=== PATIENT | male | born 1955 | race Caucasian/White ===

== ENCOUNTER 2022-04-30 11:12 | Inpatient (IN) | payer MEDICARE, BC ==
[2022-04-30 11:36] LABS: Glucose,Whole Blood 186 mg/dL (70-110)
--- NOTE | 2022-04-30 11:50 | ED ---
General Adult HPI - General Chief complaint: Shortness of Breath Stated complaint: diabetic issue Time Seen by Provider: 04/30/22 11:31 Source: patient Mode of arrival: ambulatory Limitations: no limitations - History of Present Illness Initial comments: Dictation was produced using [employer] dictation software. please excuse any grammatical, word or spelling errors. Chief Complaint: 67-year-old male past medical history of liver transplant presents to the emergency department for lethargy, dehydration and generalized weakness History of Present Illness: This 67-year-old male he presents with his brother and . Patient last week has been having generalized weakness, lethargy and confusion. Patient has a history of liver transplant that was done several years ago at [facility]. Patient moved here recently a month ago from [place]. Patient denies any complaints at this time. was concerned about patient's well-being decided that patient should come to the emergency department. Patient had outpatient labs ordered by physician in [place] that he has not gotten yet. Patient takes multiple immunosuppressive medications. The ROS documented in this emergency department record has been reviewed and confirmed by me. Those systems with pertinent positive or negative responses have been documented in the HPI. All other systems are other negative and/or noncontributory. PHYSICAL EXAM: General Impression: Alert and oriented x3, not in acute distress HEENT: Normocephalic atraumatic, extra-ocular movements intact, pupils equal and reactive to light bilaterally, mucous membranes moist. Cardiovascular: Heart regular rate and rhythm Chest: Able to complete full sentences, no retractions, no tachypnea Abdomen: abdomen soft, non-tender, non-distended, no organomegaly Musculoskeletal: Pulses present and equal in all extremities, no peripheral edema Motor: no focal deficits noted Neurological: CN II-XII grossly intact, no focal motor or sensory deficits noted Skin: Intact with no visualized rashes Psych: Normal affect and mood ED course: 67-year-old male with multiple comorbidities, liver transplant and on transplant medication presents emergency department for lethargy, weakness and dehydration. Vital signs upon arrival shows temperature 100.6, 90% on room air, rest of vital signs within acceptable limits. Patient has history of lung lobectomy and liver transplant. Physical examination is benign. Patient does not appear to be in any acute distress. Family reports the patient has been confused recently. Laboratory evaluation obtained. CBC unremarkable. Coag panel is unremarkable. Metabolic panel shows elevated renal markers with a creatinine of 2.1 BUN of 49. has [facility] patient's my chart from [place] which shows that in December he had a creatinine of 2.0 and few months prior to that grade 1.6. He does have a history of chronic kidney disease. No lactic acidosis. 4 panel viral PCR is unremarkable for influenza, RSV or COVID-19. Computed tomography scan of the brain shows no acute processes. Chest x-ray shows right upper lung pneumonia. Patient reevaluated at the bedside. Patient was recommended to be admitted to the hospital to be started on antibiotics. He was initially reluctant at first however family convinced him. Patient upon reevaluation at 2:30 PM showed stable medical condition. Is not showing any significant signs of respiratory distress. He is satting well with 2 L nasal cannula. Patient be admitted to [facility]. Patient started on Zosyn. EKG interpretation: Ventricular rate 93, sinus rhythm, AL interval 109, care is 162, QTc 435. No AL prolongation, no QTC prolongation, no ST or T-wave changes noted. No old EKG for comparison. Right bundle branch block. Overall this EKG is nonspecific. - Related Data Home Medications Medication Instructions Recorded Confirmed Docusate [Colace] 100 mg PO BID PRN 04/30/22 04/30/22 Ergocalciferol (Vitamin D2) 1,250 mcg PO SA 04/30/22 04/30/22 [Drisdol (50,000 Iu)] Fenofibrate Nanocrystallized 145 mg PO DAILY 04/30/22 04/30/22 [Fenofibrate] Fluticasone Nasal [place] [Flonase 2 spray EA NOSTRIL DAILY PRN 04/30/22 04/30/22 Nasal [place]] Insulin Glargine,Hum.rec.anlog 34 units SQ DAILY 04/30/22 04/30/22 [Lantus Solostar Pen] Levothyroxine Sodium 112 mcg PO HS 04/30/22 04/30/22 Loratadine [Claritin] 10 mg PO DAILY 04/30/22 04/30/22 Losartan [Cozaar] 50 mg PO DAILY 04/30/22 04/30/22 Rosuvastatin Calcium [Crestor] 5 mg PO DAILY 04/30/22 04/30/22 Semaglutide [Rybelsus] 7 mg PO DAILY 04/30/22 04/30/22 Sirolimus 1 mg PO DAILY 04/30/22 04/30/22 [place] Superfood Supplement 1 tab PO DAILY 04/30/22 04/30/22 Whole Fruit Supplement 3 tab PO DAILY 04/30/22 04/30/22 amLODIPine [Norvasc] 5 mg PO DAILY 04/30/22 04/30/22 carvediloL 25 mg PO BID-W/MEALS 04/30/22 04/30/22 traZODone HCL [Desyrel] 100 mg PO HS PRN 04/30/22 04/30/22 Allergies Allergy/AdvReac Type Severity Reaction Status Date / Time No Known Allergies Allergy Verified 04/30/22 13:45 Review of Systems ROS Statement: Those systems with pertinent positive or pertinent negative responses have been documented in the HPI. ROS Other: All systems not noted in ROS Statement are negative. Past Medical History Past Medical History: Diabetes Mellitus, Hyperlipidemia, Hypertension, Liver Disease, Thyroid Disorder Additional Past Medical History / Comment(s): liver transplant 2004 History of Any Multi-Drug Resistant Organisms: None Reported Additional Past Surgical History / Comment(s): liver transplant, spinal fusion Past Psychological History: No Psychological Hx Reported Smoking Status: Former smoker Past Alcohol Use History: Occasional Past Drug Use History: None Reported General Exam Limitations: no limitations Course Vital Signs 04/30/22 04/30/22 04/30/22 11:21 11:45 12:58 Temperature 100.6 F H 99.6 F Pulse Rate 98 92 86 Respiratory 20 24 18 Rate Blood Pressure 129/81 103/88 98/71 O2 Sat by Pulse 90 L 96 97 Oximetry Medical Decision Making - Lab Data Result diagrams: 04/30/22 11:48 04/30/22 11:48 Lab Results 04/30/22 04/30/22 04/30/22 Range/Units 11:35 11:48 11:48 WBC 10.6 (3.8-10.6) k/uL RBC 4.38 (4.30-5.90) m/uL Hgb 13.0 (13.0-17.5) gm/dL Hct 38.7 L (39.0-53.0) % MCV 88.3 (80.0-100.0) fL MCH 29.6 (25.0-35.0) pg MCHC 33.5 (31.0-37.0) g/dL RDW 14.7 (11.5-15.5) % Plt Count 262 (150-450) k/uL MPV 9.2 Neutrophils % 82 % Lymphocytes % 11 % Monocytes % 4 % Eosinophils % 1 % Basophils % 1 % Neutrophils # 8.7 H (1.3-7.7) k/uL Lymphocytes # 1.1 (1.0-4.8) k/uL Monocytes # 0.4 (0-1.0) k/uL Eosinophils # 0.1 (0-0.7) k/uL Basophils # 0.1 (0-0.2) k/uL PT 10.7 (9.0-12.0) sec INR 1.0 (<1.2) APTT 24.8 (22.0-30.0) sec Sodium (137-145) mmol/L Potassium (3.5-5.1) mmol/L Chloride (98-107) mmol/L Carbon Dioxide (22-30) mmol/L Anion Gap mmol/L BUN (9-20) mg/dL Creatinine (0.66-1.25) mg/dL Est GFR (CKD-EPI)AfAm (>60 ml/min/1.73 sqM) Est GFR (CKD-EPI)NonAf (>60 ml/min/1.73 sqM) Glucose (74-99) mg/dL POC Glucose (mg/dL) 186 H (70-110) mg/dL POC Glu Program Checker ID Doty Manuel Plasma Lactic Acid Last (0.7-2.0) mmol/L Calcium (8.4-10.2) mg/dL Magnesium (1.6-2.3) mg/dL Total Bilirubin (0.2-1.3) mg/dL AST (17-59) U/L ALT (4-49) U/L Alkaline Phosphatase (38-126) U/L Total Protein (6.3-8.2) g/dL Albumin (3.5-5.0) g/dL Influenza Type A (PCR) (Not Detectd) Influenza Type B (PCR) (Not Detectd) RSV (PCR) (Not Detectd) SARS-CoV-2 (PCR) (Not Detectd) 04/30/22 04/30/22 04/30/22 Range/Units 11:48 11:48 11:51 WBC (3.8-10.6) k/uL RBC (4.30-5.90) m/uL Hgb (13.0-17.5) gm/dL Hct (39.0-53.0) % MCV (80.0-100.0) fL MCH (25.0-35.0) pg MCHC (31.0-37.0) g/dL RDW (11.5-15.5) % Plt Count (150-450) k/uL MPV Neutrophils % % Lymphocytes % % Monocytes % % Eosinophils % % Basophils % % Neutrophils # (1.3-7.7) k/uL Lymphocytes # (1.0-4.8) k/uL Monocytes # (0-1.0) k/uL Eosinophils # (0-0.7) k/uL Basophils # (0-0.2) k/uL PT (9.0-12.0) sec INR (<1.2) APTT (22.0-30.0) sec Sodium 135 L (137-145) mmol/L Potassium 4.4 (3.5-5.1) mmol/L Chloride 95 L (98-107) mmol/L Carbon Dioxide 26 (22-30) mmol/L Anion Gap 14 mmol/L BUN 49 H (9-20) mg/dL Creatinine 2.21 H (0.66-1.25) mg/dL Est GFR (CKD-EPI)AfAm 35 (>60 ml/min/1.73 sqM) Est GFR (CKD-EPI)NonAf 30 (>60 ml/min/1.73 sqM) Glucose 182 H (74-99) mg/dL POC Glucose (mg/dL) (70-110) mg/dL POC Glu Program Checker ID Plasma Lactic Acid Last 1.4 (0.7-2.0) mmol/L Calcium 8.8 (8.4-10.2) mg/dL Magnesium 2.2 (1.6-2.3) mg/dL Total Bilirubin 0.7 (0.2-1.3) mg/dL AST 214 H (17-59) U/L ALT 99 H (4-49) U/L Alkaline Phosphatase 100 (38-126) U/L Total Protein 6.6 (6.3-8.2) g/dL Albumin 3.8 (3.5-5.0) g/dL Influenza Type A (PCR) Not Detected (Not Detectd) Influenza Type B (PCR) Not Detected (Not Detectd) RSV (PCR) Not Detected (Not Detectd) SARS-CoV-2 (PCR) Not Detected (Not Detectd) Disposition Clinical Impression: Pneumonia Disposition: ADMITTED IP TO THIS [facility] Condition: Serious Referrals: Nonstaff,Physician [Primary Care Provider] - 1-2 days Decision Time: 14:25
[2022-04-30 12:01] LABS: Basophils # (A) 0.1 k/uL (0-0.2); Basophils % (A) 1 %; Eosinophils # (A) 0.1 k/uL (0-0.7); Eosinophils % (A) 1 %; HCT 38.7 % (39.0-53.0); Lymphocytes # (A) 1.1 k/uL (1.0-4.8); Lymphocytes % (A) 11 %; MCH 29.6 pg (25.0-35.0); MCHC 33.5 g/dL (31.0-37.0); MCV 88.3 fL (80.0-100.0); Mean Platelet Volume 9.2; Monocytes # (A) 0.4 k/uL (0-1.0); Monocytes % (A) 4 %; Neutrophils # (A) 8.7 k/uL (1.3-7.7); Neutrophils % (A) 82 %; Platelet Count 262 k/uL (150-450); RBC 4.38 m/uL (4.30-5.90); RDW 14.7 % (11.5-15.5); WBC 10.6 k/uL (3.8-10.6)
[2022-04-30 12:13] LABS: Albumin 3.8 g/dL (3.5-5.0); Calcium 8.8 mg/dL (8.4-10.2); Magnesium 2.2 mg/dL (1.6-2.3); Potassium 4.4 mmol/L (3.5-5.1); Total Bilirubin 0.7 mg/dL (0.2-1.3); Total Protein 6.6 g/dL (6.3-8.2)
[2022-04-30 12:22] LABS: Partial Thromboplastin Time 24.8 sec (22.0-30.0); Prothrombin Time 10.7 sec (9.0-12.0)
--- NOTE | 2022-04-30 12:41 | CT ---
EXAMINATION TYPE: CT brain wo con CT DLP: 1154.4 mGycm, Automated exposure control for dose reduction was used. DATE OF EXAM: 04/30/2022 12:19 PM COMPARISON: None. CLINICAL INDICATION:Male, 67 years old with history of lethargy, TECHNIQUE: Brain: Multiple axial CT images of the brain were obtained without IV contrast. Coronal and sagittal reformats reviewed. FINDINGS: Brain: Extra-axial spaces: No abnormal extra-axial fluid collections. Ventricular system: Within normal limits Cerebral parenchyma: No acute intraparenchymal hemorrhage or mass effect. The morales-white junction is well differentiated. Scattered hypoattenuating areas are seen within the white matter. Cerebellum: Unremarkable. Mass effect: No evidence of midline shift. Intracranial vasculature: Atherosclerotic calcifications of the intracranial vessels. Soft tissues: Normal. Calvarium/osseous structures: No depressed skull fracture. Paranasal sinuses and mastoid air cells: Mastoid air cells are clear. Mild mucosal thickening of the right maxillary sinus and right sphenoid sinus. Visualized orbits: Orbital contents are intact. IMPRESSION: 1. No acute intracranial process. 2. Nonspecific white matter changes, likely secondary to chronic small vessel ischemic disease.
--- NOTE | 2022-04-30 12:44 | XR ---
EXAMINATION TYPE: XR chest 2V DATE OF EXAM: 04/30/2022 12:19 PM COMPARISON: None TECHNIQUE: XR chest 2V Frontal and lateral views of the chest. CLINICAL INDICATION:Male, 67 years old with history of fever; FINDINGS: Lungs/Pleura: Blunting of both costophrenic angles. Patchy airspace disease demonstrated along the la teral aspect of the right upper lung. Pulmonary vascularity: Unremarkable. Heart/mediastinum: Heart is mildly prominent size and partially obscured. Surgical clips along the ri ght paratracheal stripe. Musculoskeletal: No acute osseous pathology. Other: Surgical clips in the upper abdomen. IMPRESSION: Trace bilateral pleural effusions with patchy airspace opacities within the right upper lung concerni ng for pneumonia.
[2022-04-30] MEDS ORDERED: PIPERACILLIN-TAZOBACTAM 3.375 GM in SODIUM CHLORIDE 0.9% 100 ML IVPB STA (13:50)
[2022-04-30] MEDS ORDERED: ONDANSETRON 4 MG/2 ML VIAL IVP PRN (14:21)
[2022-04-30] MEDS ORDERED: NALOXONE 0.4 MG/ML 1 ML VIAL IV PRN (14:21)
[2022-04-30] MEDS: SODIUM CHLORIDE 0.9% 1,000 ML IV SCH (14:42)
[2022-04-30] MEDS ORDERED: bisacodyL 5 MG TABLET.DR PO PRN (15:40)
[2022-04-30] MEDS ORDERED: DEXTROSE 50% SYRINGE 50 ML IVP PRN ×2 (15:43)
[2022-04-30] MEDS ORDERED: FLUTICASONE 50MCG/SPRAY NASAL 16GM EA NOSTRIL PRN (15:56)
[2022-04-30 16:36] LABS: Glucose,Whole Blood 180 mg/dL (70-110)
--- NOTE | 2022-04-30 16:58 | P.HPIM ---
History of Present Illness H&P Date: 04/30/22 Chief Complaint: SOB Patient is a 67-year-old male with past medical history of hep C, hepatocellular carcinoma status post liver transplant [2005], diabetes, hypertension, dyslipidemia presenting with shortness of breath, and cough for 1 week. Patient recently moved from [place] to [place]. Previously he was seeing PCP in [place], and also following liver transplant center at [facility]. He is still in the process of establishing with a primary care doctor in [place]. Patient claims that about 1 week ago, he started to notice shortness of breath and cough. He denied any sputum production. His claims that he was also having significant chills at home. He denies any fevers. He denies any chest pain, abdominal pain, nausea, vomiting, diarrhea, or constipation. He did have reduced appetite. He denies any recent sick contacts or travel history. His and him were also concerned about his blood sugar levels. He claimed that he was hyperglycemic up to 180s. No hypoglycemic evens. In the ED, patient was febrile up to 100.6, blood pressure 129/81, 90% on room air, 98 heart rate, respiratory rate of 20. His labs were significant for elevated BUN and creatinine. Respiratory viral panel was negative. EKG was read as sinus rhythm with right bundle branch block. Chest x-ray demonstrated right upper lobe pneumonia with trace bilateral effusions. CT had was negative for any acute process. Pertinent positives and negatives as discussed in HPI, a complete review of systems was performed and all other systems are negative. Patient seen and examined at bedside. Vital signs reviewed General: nontoxic, no distress, appears at stated age Derm: warm, dry Head: atraumatic, normocephalic, symmetric Eyes: EOMI, no lid lag, anicteric sclera, pupils equal round reactive to light ENT: Nose and ears atraumatic, no thrush, no pharyngeal erythema Neck: No thyromegaly, no cervical lymphadenopathy, trachea midline, supple Mouth: no lip lesion, mucus membranes moist Cardiovascular: S1S2 reg, no murmur, no edema, capillary refill less than 2 seconds Lungs: Right upper lobe crackles, no wheeze, no accessory muscle use, on 2 L nasal cannula Abdominal: soft, nontender to palpation, no guarding, no appreciable organomegaly Ext: no gross muscle atrophy, muscle strength muscle strength 5 out of 5 in all 4 extremities, no contractures Neuro: CN II-XII grossly intact, light touch intact all 4 extremities Psych: Alert, oriented, appropriate affect Assessment/Plan: Acute hypoxic respiratory failure Sepsis secondary to community-acquired pneumonia Immunosuppressed -Given a dose of Zosyn in the ED -will start patient on levofloxacin IV daily -If symptoms not improving, or worsening consider broadening antibiotics -Sputum cultures, blood cultures pending -Continue to wean down oxygen Acute kidney injury, on possible chronic kidney disease -Unsure baseline creatinine -Possibly prerenal in the setting of acute infection -Could also be related to medication use especially sirolimus -Sirolimus levels pending -UA pending -Denies any urinary complaints -Renal ultrasound -Monitor urine output, trend renal function -Continue IV fluids are now -Hold losartan Hep C Hepatocellular carcinoma status post liver transplant -On sirolimus, continue Diabetes, insulin-dependent -Reduced home Lantus to 17 units given decreased oral intake -Sliding scale insulin -Holding home oral hypoglycemic medications Chronic conditions: Hypothyroidismlevothyroxine Hypertension-holding BP meds given acute infection Dyslipidemiarosuvastatin The patient is admitted as an inpatient with an anticipated greater than 2 midnight stay for evaluation and management of community-acquired pneumonia in the setting of immunosuppression, liver transplant. CODE STATUS: Full code DVT prophylaxis: Subcu heparin Anticipated discharge date: 05/02/[address]: Home A total of 45 minutes was spent on the care of this complex patient more than 50% of the time was spent in counseling and care coordination. Past Medical History Past Medical History: Diabetes Mellitus, Hyperlipidemia, Hypertension, Liver Disease, Thyroid Disorder Additional Past Medical History / Comment(s): liver transplant 2004 History of Any Multi-Drug Resistant Organisms: None Reported Additional Past Surgical History / Comment(s): liver transplant, spinal fusion Past Psychological History: No Psychological Hx Reported Smoking Status: Former smoker Past Alcohol Use History: Occasional Past Drug Use History: None Reported Medications and Allergies Home Medications Medication Instructions Recorded Confirmed Type Docusate [Colace] 100 mg PO BID PRN 04/30/22 04/30/22 History Ergocalciferol (Vitamin D2) 1,250 mcg PO SA 04/30/22 04/30/22 History [Drisdol (50,000 Iu)] Fenofibrate Nanocrystallized 145 mg PO DAILY 04/30/22 04/30/22 History [Fenofibrate] Fluticasone Nasal [place] [Flonase 2 spray EA NOSTRIL DAILY PRN 04/30/22 04/30/22 History Nasal [place]] Insulin Glargine,Hum.rec.anlog 34 units SQ DAILY 04/30/22 04/30/22 History [Lantus Solostar Pen] Levothyroxine Sodium 112 mcg PO HS 04/30/22 04/30/22 History Loratadine [Claritin] 10 mg PO DAILY 04/30/22 04/30/22 History Losartan [Cozaar] 50 mg PO DAILY 04/30/22 04/30/22 History Rosuvastatin Calcium [Crestor] 5 mg PO DAILY 04/30/22 04/30/22 History Semaglutide [Rybelsus] 7 mg PO DAILY 04/30/22 04/30/22 History Sirolimus 1 mg PO DAILY 04/30/22 04/30/22 History [place] Superfood Supplement 1 tab PO DAILY 04/30/22 04/30/22 History Whole Fruit Supplement 3 tab PO DAILY 04/30/22 04/30/22 History amLODIPine [Norvasc] 5 mg PO DAILY 04/30/22 04/30/22 History carvediloL 25 mg PO BID-W/MEALS 04/30/22 04/30/22 History traZODone HCL [Desyrel] 100 mg PO HS PRN 04/30/22 04/30/22 History Allergies Allergy/AdvReac Type Severity Reaction Status Date / Time No Known Allergies Allergy Verified 04/30/22 13:45 Physical Exam Vitals: Vital Signs Temp Pulse Pulse Resp BP BP Pulse Ox 04/30/22 16:03 98.2 F 84 20 98/66 93 L 04/30/22 15:52 99.7 F H 80 18 106/64 97 04/30/22 14:48 84 18 109/87 98 04/30/22 12:58 99.6 F 86 18 98/71 97 04/30/22 11:45 92 24 103/88 96 04/30/22 11:21 100.6 F H 98 20 129/81 90 L Intake and Output 04/30/22 04/30/22 04/30/22 06:59 14:59 22:59 Other: Weight 92.986 kg Results CBC & Chem 7: 04/30/22 11:48 04/30/22 11:48 Labs: Abnormal Lab Results - Last 24 Hours (Table) 04/30/22 04/30/22 04/30/22 Range/Units 11:35 11:48 11:48 Hct 38.7 L (39.0-53.0) % Neutrophils # 8.7 H (1.3-7.7) k/uL Sodium 135 L (137-145) mmol/L Chloride 95 L (98-107) mmol/L BUN 49 H (9-20) mg/dL Creatinine 2.21 H (0.66-1.25) mg/dL Glucose 182 H (74-99) mg/dL POC Glucose (mg/dL) 186 H (70-110) mg/dL AST 214 H (17-59) U/L ALT 99 H (4-49) U/L 04/30/22 Range/Units 16:35 Hct (39.0-53.0) % Neutrophils # (1.3-7.7) k/uL Sodium (137-145) mmol/L Chloride (98-107) mmol/L BUN (9-20) mg/dL Creatinine (0.66-1.25) mg/dL Glucose (74-99) mg/dL POC Glucose (mg/dL) 180 H (70-110) mg/dL AST (17-59) U/L ALT (4-49) U/L
[2022-04-30] MEDS: INSULIN ASPART (NovoLOG) 100 UNIT/ML VIAL SQ SCH (18:34)
[2022-04-30] MEDS: LEVOFLOXACIN 750MG-D5W PMX 750 MG in DEXTROSE/WATER 1 150ML.BAG IVPB SCH (18:34)
[2022-04-30 18:50] LABS: Appearance,Urine Cloudy (Clear); Bilirubin,Urine Negative (Negative); Blood,Urine Small (Negative); Color,Urine Yellow; Glucose,Urine (UA) Trace (Negative); Hyaline Casts,Urine 3 /lpf (0-2); Ketones,Urine Negative (Negative); Leukocyte Esterase,Urine Negative (Negative); Nitrite,Urine Negative (Negative); Protein,Urine 1+ (Negative); RBC,Urine 3 /hpf (0-5); Specific Gravity,Urine 1.017 (1.001-1.035); Urobilinogen,Urine <2.0 mg/dL (<2.0); WBC,Urine 3 /hpf (0-5)
[2022-04-30] MEDS: LEVOTHYROXINE 112 MCG TAB PO SCH (20:03)
[2022-04-30] MEDS: HEPARIN SODIUM,PORCINE/PF 5,000 UNIT/0.5 ML SYRINGE SQ SCH (20:03)
[2022-04-30 21:04] LABS: Glucose,Whole Blood 274 mg/dL (70-110)
[2022-05-01] MEDS: SODIUM CHLORIDE 0.9% 1,000 ML IV SCH ×2 (05:57→19:49)
[2022-05-01 07:16] LABS: Glucose,Whole Blood 116 mg/dL (70-110)
[2022-05-01] MEDS ORDERED: LOSARTAN 50 MG TAB PO SCH (09:00)
[2022-05-01 09:09] LABS: Basophils # (A) 0.01 X 10*3/uL (0.00-0.10); Basophils % (A) 0.1 %; Eosinophils # (A) 0.01 X 10*3/uL (0.04-0.35); Eosinophils % (A) 0.1 %; HCT 33.7 % (39.6-50.0); HGB 10.6 g/dL (13.0-17.0); Immature Grans, Automated 0.6 %; Lymphocytes # (A) 1.23 X 10*3/uL (0.90-5.00); Lymphocytes % (A) 15.4 %; MCH 27.9 pg (27.0-32.0); MCHC 31.5 g/dL (32.0-37.0); MCV 88.7 fL (80.0-97.0); Mean Platelet Volume 11.8 fL (9.5-12.2); Monocytes # (A) 0.72 X 10*3/uL (0.20-1.00); NRBC Per 100 WBC 0 /100 WBCS (0.0-0.0); Neutrophils # (A) 5.99 X 10*3/uL (1.80-7.70); Neutrophils % (A) 74.8 %; Platelet Count 224 X 10*3/uL (140-440); RDW 14.8 % (11.5-14.5); WBC 8.01 X 10*3/uL (4.50-10.00)
[2022-05-01] MEDS: INSULIN DETEMIR (LEVEMIR) 100 UNIT/ML SYR SQ SCH (09:17)
[2022-05-01] MEDS: HEPARIN SODIUM,PORCINE/PF 5,000 UNIT/0.5 ML SYRINGE SQ SCH ×3 (09:17→23:00)
[2022-05-01] MEDS: INSULIN ASPART (NovoLOG) 100 UNIT/ML VIAL SQ SCH ×3 (09:20→19:48)
--- NOTE | 2022-05-01 09:28 | US ---
EXAMINATION TYPE: US kidneys/renal and bladder DATE OF EXAM: 05/01/2022 COMPARISON: NONE CLINICAL HISTORY: ANNIE. EXAM MEASUREMENTS: Right Kidney: 11.0 x 5.4 x 5.0 cm Left Kidney: 9.4 x 4.5 x 4.7 cm Technically difficult study, patient unable to hold his breath, large body habitus. Right Kidney: lobular contour, limited visualization Left Kidney: very limited visualization superior pole obscured by overlying bowel Bladder: wall is thickened, this may be due to non-distention Incidental finding of splenomegaly. Some cortical thinning in the right kidney. No hydronephrosis or concerning masses. The urinary blad micki is not greatly distended and is thus suboptimally evaluated. Wall is minimally thickened for non distended bladder. Bilateral ureteral jets are not seen. Spleen is enlarged in size difficult to accu rately measure. Poor visualization of left kidney without gross hydronephrosis. IMPRESSION: Suboptimal study without hydronephrosis seen bilaterally. Splenomegaly is noted which may warrant further clinical workup.
[2022-05-01 09:35] LABS: African American GFR (CKD) 34.9 (60.0-200.0); Albumin 3.2 g/dL (3.8-4.9); Albumin/Globulin Ratio 1.52 (1.60-3.17); Anion Gap 9.9 mmol/L (10.00-18.00); BUN/Creat Ratio 22.5 Ratio (12.00-20.00); Blood Urea Nitrogen 49.5 mg/dL (9.0-27.0); Calcium 8.5 mg/dL (8.7-10.3); Carbon Dioxide 25.1 mmol/L (20.0-27.5); Globulin 2.1 g/dL (1.6-3.3); Magnesium 2.4 mg/dL (1.5-2.4); Non-African American GFR(CKD) 30.1 (60.0-200.0); Potassium 4.1 mmol/L (3.5-5.5); Total Bilirubin 0.3 mg/dL (0.30-1.20); Total Protein 5.3 g/dL (6.2-8.2)
--- NOTE | 2022-05-01 10:32 | P.PN ---
Subjective Progress Note Date: 05/01/22 Hospital course: Patient is a Physical exam: Vital signs reviewed and stable. General: Nontoxic, no distress and appears stated age. Derm: Skin warm and dry, normal coloration for ethnicity. Head: Atraumatic, normocephalic and symmetric. Eyes: EOMs intact, no lid lag, and anicteric sclera Mouth: no lip lesions, mucus membranes moist Cardiovascular: regular rate and rhythm with normal S1S2, no murmur, positive posterior tibial pulses bilaterally, and cap refill < 2 seconds. Lungs: Respirations even, regular, and unlabored on room air. Lungs CTA bilaterally, no rhonchi, no rales, no wheezing, and no accessory muscle usage. Abdominal: soft, nontender to palpation, no guarding, no appreciable organomegaly Ext: ROM intact. No gross muscle atrophy, no edema, no contractures Neuro: Speech clear, face symmetrical and CN II-XII grossly intact with no noted focal neuro deficits Psych: Alert and oriented to person, place, time, and situation. Appropriate and pleasant affect. Assessment and Plan of Care: CODE STATUS:[] DVT prophylaxis: [] Discussed with: [] Anticipated discharge date: [] Anticipated discharge place: [] A total of [] minutes was spent on the care of this complex patient more than 50% of the time was spent in counseling and care coordination. Objective - Vital Signs Vital signs: Vital Signs Temp 98.4 F 05/01/22 07:18 Pulse 90 05/01/22 08:00 Resp 18 05/01/22 08:00 BP 138/77 05/01/22 07:18 Pulse Ox 96 05/01/22 06:00 FiO2 Intake & Output 04/30/22 05/01/22 05/01/22 18:59 06:59 18:59 Output Total 470 325 Balance -470 -325 Weight 92.986 kg Output: Urine 470 325 Other: Voiding Method Toilet Toilet # Voids 1 # Bowel Movements 2 1 - Labs CBC & Chem 7: 05/01/22 06:15 05/01/22 06:15 Labs: Abnormal Lab Results - Last 24 Hours (Table) 04/30/22 04/30/22 04/30/22 Range/Units 11:35 11:48 11:48 RBC (4.40-5.60) X 10*6/uL Hgb (13.0-17.0) g/dL Hct 38.7 L (39.0-53.0) % MCHC (32.0-37.0) g/dL RDW (11.5-14.5) % Immature Gran # (0.00-0.04) X 10*3/uL Neutrophils # 8.7 H (1.3-7.7) k/uL Eosinophils # (0.04-0.35) X 10*3/uL Sodium 135 L (137-145) mmol/L Chloride 95 L (98-107) mmol/L Anion Gap (10.00-18.00) mmol/L BUN 49 H (9-20) mg/dL Creatinine 2.21 H (0.66-1.25) mg/dL Est GFR (CKD-EPI)AfAm (60.0-200.0) Est GFR (CKD-EPI)NonAf (60.0-200.0) BUN/Creatinine Ratio (12.00-20.00) Ratio Glucose 182 H (74-99) mg/dL POC Glucose (mg/dL) 186 H (70-110) mg/dL Hemoglobin A1c (0.0-6.0) % Calcium (8.7-10.3) mg/dL AST 214 H (17-59) U/L ALT 99 H (4-49) U/L Total Protein (6.2-8.2) g/dL Albumin (3.8-4.9) g/dL Albumin/Globulin Ratio (1.60-3.17) g/dL Urine Protein (Negative) Urine Glucose (UA) (Negative) Urine Blood (Negative) Hyaline Casts (0-2) /lpf 04/30/22 04/30/22 04/30/22 Range/Units 16:35 18:07 21:02 RBC (4.40-5.60) X 10*6/uL Hgb (13.0-17.0) g/dL Hct (39.0-53.0) % MCHC (32.0-37.0) g/dL RDW (11.5-14.5) % Immature Gran # (0.00-0.04) X 10*3/uL Neutrophils # (1.3-7.7) k/uL Eosinophils # (0.04-0.35) X 10*3/uL Sodium (137-145) mmol/L Chloride (98-107) mmol/L Anion Gap (10.00-18.00) mmol/L BUN (9-20) mg/dL Creatinine (0.66-1.25) mg/dL Est GFR (CKD-EPI)AfAm (60.0-200.0) Est GFR (CKD-EPI)NonAf (60.0-200.0) BUN/Creatinine Ratio (12.00-20.00) Ratio Glucose (74-99) mg/dL POC Glucose (mg/dL) 180 H 274 H (70-110) mg/dL Hemoglobin A1c (0.0-6.0) % Calcium (8.7-10.3) mg/dL AST (17-59) U/L ALT (4-49) U/L Total Protein (6.2-8.2) g/dL Albumin (3.8-4.9) g/dL Albumin/Globulin Ratio (1.60-3.17) g/dL Urine Protein 1+ H (Negative) Urine Glucose (UA) Trace H (Negative) Urine Blood Small H (Negative) Hyaline Casts 3 H (0-2) /lpf 05/01/22 05/01/22 05/01/22 Range/Units 06:15 06:15 06:15 RBC 3.80 L (4.40-5.60) X 10*6/uL Hgb 10.6 L (13.0-17.0) g/dL Hct 33.7 L (39.0-53.0) % MCHC 31.5 L (32.0-37.0) g/dL RDW 14.8 H (11.5-14.5) % Immature Gran # 0.05 H (0.00-0.04) X 10*3/uL Neutrophils # (1.3-7.7) k/uL Eosinophils # 0.01 L (0.04-0.35) X 10*3/uL Sodium (137-145) mmol/L Chloride (98-107) mmol/L Anion Gap 9.90 L (10.00-18.00) mmol/L BUN 49.5 H (9-20) mg/dL Creatinine 2.2 H (0.66-1.25) mg/dL Est GFR (CKD-EPI)AfAm 34.9 L (60.0-200.0) Est GFR (CKD-EPI)NonAf 30.1 L (60.0-200.0) BUN/Creatinine Ratio 22.50 H (12.00-20.00) Ratio Glucose 114 H (74-99) mg/dL POC Glucose (mg/dL) (70-110) mg/dL Hemoglobin A1c 8.4 H (0.0-6.0) % Calcium 8.5 L (8.7-10.3) mg/dL AST 212 H (17-59) U/L ALT 113 H (4-49) U/L Total Protein 5.3 L (6.2-8.2) g/dL Albumin 3.2 L (3.8-4.9) g/dL Albumin/Globulin Ratio 1.52 L (1.60-3.17) g/dL Urine Protein (Negative) Urine Glucose (UA) (Negative) Urine Blood (Negative) Hyaline Casts (0-2) /lpf 05/01/22 Range/Units 07:14 RBC (4.40-5.60) X 10*6/uL Hgb (13.0-17.0) g/dL Hct (39.0-53.0) % MCHC (32.0-37.0) g/dL RDW (11.5-14.5) % Immature Gran # (0.00-0.04) X 10*3/uL Neutrophils # (1.3-7.7) k/uL Eosinophils # (0.04-0.35) X 10*3/uL Sodium (137-145) mmol/L Chloride (98-107) mmol/L Anion Gap (10.00-18.00) mmol/L BUN (9-20) mg/dL Creatinine (0.66-1.25) mg/dL Est GFR (CKD-EPI)AfAm (60.0-200.0) Est GFR (CKD-EPI)NonAf (60.0-200.0) BUN/Creatinine Ratio (12.00-20.00) Ratio Glucose (74-99) mg/dL POC Glucose (mg/dL) 116 H (70-110) mg/dL Hemoglobin A1c (0.0-6.0) % Calcium (8.7-10.3) mg/dL AST (17-59) U/L ALT (4-49) U/L Total Protein (6.2-8.2) g/dL Albumin (3.8-4.9) g/dL Albumin/Globulin Ratio (1.60-3.17) g/dL Urine Protein (Negative) Urine Glucose (UA) (Negative) Urine Blood (Negative) Hyaline Casts (0-2) /lpf
[2022-05-01] MEDS: LORATADINE 10 MG TAB PO SCH (10:42)
[2022-05-01] MEDS: ATORVASTATIN 10 MG TAB PO SCH (10:43)
[2022-05-01] MEDS: NON FORMULARY DRUG (Sirolimus [Sirolimus] 1 MG Tablet) PO SCH ×2 (10:44→19:48)
[2022-05-01] MEDS: ACETAMINOPHEN TAB 325 MG TAB PO PRN (11:46)
[2022-05-01 12:02] LABS: Glucose,Whole Blood 158 mg/dL (70-110)
[2022-05-01 19:11] LABS: Glucose,Whole Blood 149 mg/dL (70-110)
[2022-05-01 20:33] LABS: Glucose,Whole Blood 168 mg/dL (70-110)
[2022-05-01] MEDS: LEVOTHYROXINE 112 MCG TAB PO SCH (21:21)
[2022-05-01] MEDS: traZODone HCL 100 MG TAB PO PRN (21:27)
[2022-05-02] MEDS: ACETAMINOPHEN TAB 325 MG TAB PO PRN (07:15)
[2022-05-02 07:19] LABS: Glucose,Whole Blood 116 mg/dL (70-110)
[2022-05-02] MEDS: SODIUM CHLORIDE 0.9% 1,000 ML IV SCH ×2 (08:40→16:39)
[2022-05-02] MEDS: INSULIN ASPART (NovoLOG) 100 UNIT/ML VIAL SQ SCH ×3 (08:42→18:07)
[2022-05-02] MEDS: LORATADINE 10 MG TAB PO SCH (08:51)
[2022-05-02] MEDS: ATORVASTATIN 10 MG TAB PO SCH (08:51)
[2022-05-02] MEDS: HEPARIN SODIUM,PORCINE/PF 5,000 UNIT/0.5 ML SYRINGE SQ SCH ×3 (08:51→23:15)
[2022-05-02] MEDS: INSULIN DETEMIR (LEVEMIR) 100 UNIT/ML SYR SQ SCH (08:52)
[2022-05-02] MEDS: NON FORMULARY DRUG (Sirolimus [Sirolimus] 1 MG Tablet) PO SCH (10:21)
[2022-05-02 12:33] LABS: Glucose,Whole Blood 219 mg/dL (70-110)
[2022-05-02] MEDS ORDERED: IPRATROPIUM-ALBUTEROL 3 ML NEB INHALATION PRN (15:24)
--- NOTE | 2022-05-02 15:42 | P.PN ---
Subjective Progress Note Date: 05/02/22 Hospital course: Patient is a very pleasant 67-year-old male who just recently moved to [facility] from [facility]. He has a past medical history of hepatitis C, hepatocellular carcinoma status post liver transplant in 2004 hypertension, hyperlipidemia, hypothyroidism, insulin-dependent diabetes mellitus, and stage IV CKD with reported baseline creatinine based on what pulled up from [place] records is 2.02. Patient presented to the emergency department on 04/30/22 with a chief complaint of shortness of breath and cough 1 week. He underwent full evaluation in the emergency department. Chest x-ray completed revealing trace bilateral pleural effusions with patchy airspace opacities within the right upper lung concerning for pneumonia. EKG completed revealing sinus mechanism and 93 beats per minute with right bundle branch block. Ultrasound of kidney/renal and bladder was completed prior to knowing patient's baseline creatinine was 2.02, renal ultrasound revealed splenomegaly. Patient was given a dose of Zosyn in the emergency department and started on IV Levaquin for treatment of his community-acquired pneumonia. He was admitted under our services and consult was placed to nephrology and infectious disease. Physical exam: Patient was seen and fully evaluated at bedside this morning. High Oral temperature over the past 24 hours was 101.3F. patient is due for IV Levaquin this afternoon. He continues to have reported shortness of breath with minimal exertion, fatigue, and cough. He denies having any headache, lightheadedness, dizziness, chest pain, palpitations, nausea, or vomiting. Documented urinary output over the past 24 hours was 750 mL. renal function stable with BUN of 49.5, creatinine 2.2, and GFR of 30.1. Liver enzymes remain elevated with AST of 212 and ALT of 113. Vital signs reviewed and stable. General: Nontoxic, no distress and appears stated age. Derm: Skin warm and dry, normal coloration for ethnicity. Head: Atraumatic, normocephalic and symmetric. Eyes: EOMs intact, no lid lag, and anicteric sclera Mouth: no lip lesions, mucus membranes moist Cardiovascular: regular rate and rhythm with normal S1S2, systolic murmur, positive posterior tibial pulses bilaterally, and cap refill < 2 seconds. Lungs: Respirations even, regular, and unlabored on 2L O2 w/ SPO2 93-94% at rest. Lungs with soft expiratory wheezes, no rhonchi, no rales, no crackles, and no accessory muscle usage. Abdominal: soft, nontender to palpation, no guarding, no appreciable organomegaly Ext: ROM intact. No gross muscle atrophy, no edema, no contractures Neuro: Speech clear, face symmetrical and CN II-XII grossly intact with no noted focal neuro deficits Psych: Alert and oriented to person, place, time, and situation. Appropriate and pleasant affect. Assessment and Plan of Care: Acute hypoxic respiratory failure Sepsis secondary to community-acquired pneumonia Immunosuppressed -Oxygenation to be administered and titrated as needed to maintain SPO2 equal to or greater than 92% -Telemetry monitoring. -Monitor Pulse-oximetry -Duonebs as needed for SOB and/or wheezing -Incentive Spirometry -Antibiotics: Levofloxacin IV every 48 hours secondary to renal dosing. -Sputum culture and blood cultures negative to date. -Infectious disease consulted. At this time patient to continue antirejection medications. Acute kidney injury, on stage IV chronic kidney disease -Baseline creatinine, 2 (based on what pulled up from [place] medical records) -Could also be related to medication use especially sirolimus -Sirolimus level slightly elevated at 12.8. -UA positive for protein and blood negative for infection. -Denies any urinary complaints -Renal ultrasoundnegative for hydronephrosis. -Monitor urine output, trend renal function -Continue IV fluids for now -Hold losartan -Nephrology consulted as patient's denies patient ever being evaluated by a woven label designer in the past. Hepatocellular carcinoma status post liver transplant in 2004 -On sirolimus, continue -Sirolimus level slightly elevated at 12.8. Diabetes, insulin-dependent -Reduced home Lantus to 17 units given decreased oral intake -Sliding scale insulin -Holding home oral hypoglycemic medications CODE STATUS: full code DVT prophylaxis: heparin Discussed with: patient and patient's and RN. Anticipated discharge date: 2-[address]: Home A total of 39 minutes was spent on the care of this complex patient more than 50% of the time was spent in counseling and care coordination. I reviewed the documentation as provided by the LIZ above, who is the original author of this note. I agree with the documented assessment and plan, with the following changes: none Objective - Vital Signs Vital signs: Vital Signs Temp 98.9 F 05/02/22 08:48 Pulse 98 05/02/22 07:35 Resp 18 05/02/22 07:47 BP 151/80 05/02/22 07:35 Pulse Ox 94 L 05/02/22 08:48 FiO2 Intake & Output 05/01/22 05/02/22 05/02/22 18:59 06:59 18:59 Intake Total 500 Output Total 325 425 Balance -325 75 Intake: Oral 500 Output: Urine 325 425 Other: Voiding Method Toilet Toilet Toilet # Voids 1 0 # Bowel Movements 1 - Labs CBC & Chem 7: 05/01/22 06:15 05/01/22 06:15 Labs: Abnormal Lab Results - Last 24 Hours (Table) 05/01/22 05/01/22 05/01/22 Range/Units 11:55 17:00 20:32 POC Glucose (mg/dL) 158 H 149 H 168 H (70-110) mg/dL 05/02/22 Range/Units 06:58 POC Glucose (mg/dL) 116 H (70-110) mg/dL Microbiology - Last 24 Hours (Table) 05/01/22 08:20 Gram Stain - Preliminary Sputum Sputum Culture - Preliminary 04/30/22 14:40 Blood Culture - Preliminary Blood No Growth after 24 hours 04/30/22 14:20 Blood Culture - Preliminary Blood No Growth after 24 hours
[2022-05-02 17:30] LABS: Glucose,Whole Blood 117 mg/dL (70-110)
[2022-05-02] MEDS: LEVOFLOXACIN 750MG-D5W PMX 750 MG in DEXTROSE/WATER 1 150ML.BAG IVPB SCH (17:50)
[2022-05-02] MEDS: carvediloL 12.5 MG TAB PO SCH (18:25)
[2022-05-02 19:54] LABS: Glucose,Whole Blood 250 mg/dL (70-110)
[2022-05-02] MEDS: traZODone HCL 100 MG TAB PO PRN (19:56)
[2022-05-02] MEDS: LEVOTHYROXINE 112 MCG TAB PO SCH (19:56)
--- NOTE | 2022-05-02 23:23 | P.CONS ---
History of Present Illness - Reason for Consult Consult date: 05/02/22 Pneumonia and history of liver transplant Requesting physician: Patrick Haddad - Chief Complaint Shortness of breath and cough x few days - History of Present Illness Patient is a 67-year-old male with a past medical he significant for hepatitis C hepatocellular carcinoma status post liver transplant in 2004 patient also have a history of diabetes mellitus stage IV kidney disease hypertension hyperlipidemia patient presenting to the [facility] ER 2 days ago on 04/30/2022 for evaluation of increasing shortness of breath and cough symptom has been going on for about a week before presentation to the hospital patient complaining of shortness of breath on minimal exertion and even at rest patient also have a cough which is mild to moderate intensity not bringing up any sputum denies any pleuritic chest pain patient denies having any nausea no vomiting no abdominal pain patient did have a chronic diarrhea however denies any recent worsening of diarrhea and no urinary symptoms patient on presentation to the hospital running a low-grade fever 100.6 however he did spike a fever of 101.3 F this morning patient did have mild hypoxemia and need for supplemental oxygen patient did have a normal white count with a left shift BUN and creatinine has been elevated as are his liver enzymes are elevated urine has been negative influenza carrasco PCR and urine for Legionella antigen has been negative patient did have blood cultures obtained which are currently pending sputum cultures are pending patient did have a chest x-ray trace bilateral pleural effusion with patchy airspace opacity right upper lung concerning for pneumonia patient is being treated with Levaquin infectious disease was consulted for further management of antibiotic therapy Review of Systems Positive point has been mentioned in the HPI rest of the systems are negative Past Medical History Past Medical History: Diabetes Mellitus, Hyperlipidemia, Hypertension, Liver Disease, Renal Disease, Thyroid Disorder Additional Past Medical History / Comment(s): liver transplant 2004 History of Any Multi-Drug Resistant Organisms: None Reported Past Surgical History: Cholecystectomy Additional Past Surgical History / Comment(s): liver transplant, spinal fusion, bilat hip replacement, spinal fusion, Past Anesthesia/Blood Transfusion Reactions: No Reported Reaction Past Psychological History: No Psychological Hx Reported Smoking Status: Former smoker Past Alcohol Use History: Occasional Past Drug Use History: None Reported Medications and Allergies Home Medications Medication Instructions Recorded Confirmed Type Docusate [Colace] 100 mg PO BID PRN 04/30/22 04/30/22 History Ergocalciferol (Vitamin D2) 1,250 mcg PO SA 04/30/22 04/30/22 History [Drisdol (50,000 Iu)] Fenofibrate Nanocrystallized 145 mg PO DAILY 04/30/22 04/30/22 History [Fenofibrate] Fluticasone Nasal [place] [Flonase 2 spray EA NOSTRIL DAILY PRN 04/30/22 04/30/22 History Nasal [place]] Insulin Glargine,Hum.rec.anlog 34 units SQ DAILY 04/30/22 04/30/22 History [Lantus Solostar Pen] Levothyroxine Sodium 112 mcg PO HS 04/30/22 04/30/22 History Loratadine [Claritin] 10 mg PO DAILY 04/30/22 04/30/22 History Losartan [Cozaar] 50 mg PO DAILY 04/30/22 04/30/22 History Rosuvastatin Calcium [Crestor] 5 mg PO DAILY 04/30/22 04/30/22 History Semaglutide [Rybelsus] 7 mg PO DAILY 04/30/22 04/30/22 History Sirolimus 1 mg PO DAILY 04/30/22 04/30/22 History [place] Superfood Supplement 1 tab PO DAILY 04/30/22 04/30/22 History Whole Fruit Supplement 3 tab PO DAILY 04/30/22 04/30/22 History amLODIPine [Norvasc] 5 mg PO DAILY 04/30/22 04/30/22 History carvediloL 25 mg PO BID-W/MEALS 04/30/22 04/30/22 History traZODone HCL [Desyrel] 100 mg PO HS PRN 04/30/22 04/30/22 History cefUROXime axetiL [Ceftin] 500 mg PO BID 7 Days #14 tab 05/04/22 Rx Allergies Allergy/AdvReac Type Severity Reaction Status Date / Time No Known Allergies Allergy Verified 04/30/22 13:45 Physical Exam Vitals: Vital Signs Temp Pulse Resp BP Pulse Ox 05/02/22 13:21 98 F 86 18 147/88 96 05/02/22 08:48 98.9 F 94 L 05/02/22 07:47 18 05/02/22 07:35 101.3 F H 98 18 151/80 100 05/02/22 03:13 99.7 F H 92 15 134/64 95 05/01/22 20:00 98.8 F 95 28 H 143/86 88 L Intake and Output 05/02/22 05/02/22 05/02/22 06:59 14:59 22:59 Intake Total 500 Output Total 425 400 Balance 75 -400 Intake: Oral 500 Output: Urine 425 400 Other: Voiding Method Toilet # Voids 0 GENERAL DESCRIPTION: An elderly male lying in bed, no distress. No tachypnea or accessory muscle of respiration use. HEENT: Shows Pallor , no scleral icterus. Oral mucous membrane is dry. No pharyngeal erythema or thrush NECK: Trachea central, no thyromegaly. LUNGS: Unlabored breathing. Decreased breath sounds at the bases No wheeze or crackle. HEART: S1, S2, regular rate and rhythm. No loud murmur ABDOMEN: Soft, no tenderness , guarding or rigidity, no organomegaly EXTREMITIES: No edema of feet. SKIN: No rash, no masses palpable. NEUROLOGICAL: The patient is awake, alert, oriented x3, mood and affect normal. Results CBC & Chem 7: 05/04/22 04:49 05/04/22 04:49 Labs: Abnormal Lab Results - Last 24 Hours (Table) 04/30/22 05/01/22 05/01/22 Range/Units 16:51 17:00 20:32 POC Glucose (mg/dL) 149 H 168 H (70-110) mg/dL Sirolimus 12.8 H (4.0-12.0) ng/mL 05/02/22 05/02/22 Range/Units 06:58 12:10 POC Glucose (mg/dL) 116 H 219 H (70-110) mg/dL Sirolimus (4.0-12.0) ng/mL Microbiology - Last 24 Hours (Table) 05/01/22 08:20 Gram Stain - Preliminary Sputum Sputum Culture - Preliminary 04/30/22 14:40 Blood Culture - Preliminary Blood No Growth after 24 hours 04/30/22 14:20 Blood Culture - Preliminary Blood No Growth after 24 hours Assessment and Plan (1) Pneumonia Status: Acute Code(s): J18.9 - PNEUMONIA, UNSPECIFIED ORGANISM SNOMED Code(s): 465195517 Plan: 1patient presented to hospital with fever increasing shortness of breath and cough in this patient with a history of renal transplant on immunosuppressive medication however no recent change in his immunosuppressive medication per patient did have evidence of right upper lobe pneumonia with concern for possible community-acquired pathogen. 2blood and sputum cultures obtained which are currently pending. 3continue Levaquin however add Rocephin 2 g daily. We will follow on clinical condition and cultures to further adjust medication if needed Thank you for this consultation will follow this patient along with you Time with Patient: Greater than 30
[2022-05-03] MEDS: ACETAMINOPHEN TAB 325 MG TAB PO PRN (02:21)
[2022-05-03 06:53] LABS: HCT 34.1 % (39.0-53.0); HGB 11.4 gm/dL (13.0-17.5); MCH 29.6 pg (25.0-35.0); MCHC 33.4 g/dL (31.0-37.0); MCV 88.7 fL (80.0-100.0); Mean Platelet Volume 9.5; Platelet Count 254 k/uL (150-450); RBC 3.84 m/uL (4.30-5.90); RDW 14.9 % (11.5-15.5); WBC 6.1 k/uL (3.8-10.6)
[2022-05-03 07:34] LABS: Glucose,Whole Blood 168 mg/dL (70-110)
[2022-05-03] MEDS: INSULIN ASPART (NovoLOG) 100 UNIT/ML VIAL SQ SCH ×3 (08:42→17:49)
[2022-05-03] MEDS: LORATADINE 10 MG TAB PO SCH (08:43)
[2022-05-03] MEDS: ATORVASTATIN 10 MG TAB PO SCH (08:43)
[2022-05-03] MEDS: carvediloL 12.5 MG TAB PO SCH ×2 (08:43→17:49)
[2022-05-03] MEDS: INSULIN DETEMIR (LEVEMIR) 100 UNIT/ML SYR SQ SCH (08:43)
[2022-05-03] MEDS: HEPARIN SODIUM,PORCINE/PF 5,000 UNIT/0.5 ML SYRINGE SQ SCH ×3 (08:43→23:33)
[2022-05-03] MEDS: amLODIPine 5 MG TAB PO SCH (08:43)
[2022-05-03] MEDS: FENOFIBRATE 160 MG TAB PO SCH (08:44)
[2022-05-03 09:07] LABS: Magnesium 2.3 mg/dL (1.5-2.4)
[2022-05-03 09:24] LABS: ALT 108 U/L (10-49); AST 137 U/L (14-35); African American GFR (CKD) 52.5 (60.0-200.0); Albumin 2.7 g/dL (3.8-4.9); Alkaline Phosphatase 89 U/L (41-126); BUN/Creat Ratio 23.82 Ratio (12.00-20.00); Blood Urea Nitrogen 37.4 mg/dL (9.0-27.0); Calcium 8.2 mg/dL (8.7-10.3); Chloride 103 mmol/L (96-109); Globulin 2.3 g/dL (1.6-3.3); Glucose 179 mg/dL (70-110); Non-African American GFR(CKD) 45.3 (60.0-200.0); Potassium 3.9 mmol/L (3.5-5.5); Sodium 136 mmol/L (135-145); Total Bilirubin <0.15 mg/dL (0.30-1.20)
[2022-05-03] MEDS: NON FORMULARY DRUG (Sirolimus [Sirolimus] 1 MG Tablet) PO SCH (09:31)
[2022-05-03] MEDS: SODIUM CHLORIDE 0.9% 1,000 ML IV SCH ×2 (09:31→23:33)
--- NOTE | 2022-05-03 11:28 | P.NPCON ---
History of Present Illness - Reason for Consult acute renal failure - History of Present Illness Patient is a 67-year-old male with history of hepatitis C, hepatocellular carcinoma status post liver transplant in 2004. Patient is admitted to the hospital with complaints of cough not feeling well increased fatigue. He has recently moved from [place] to [facility]. Patient states that his kidney function has been week on and off but does not follow-up with a scrap crusher. Currently being treated for pneumonia with chest x-ray showing patchy airspace of patches studies in the right upper lung and bilateral trace pleural effusions. Serum creatinine was 2.2 on initial admission and it is down to 1.6 now. No prior labs available for comparison. Blood pressure was low on initial admission with systolic in the 90s. Patient is maintained on angiotensin receptor blockers. Serology was level was elevated at 12.8 No significant urinary symptoms. Currently maintained on IV fluids. Review of Systems As per HPI. Past Medical History Past Medical History: Diabetes Mellitus, Hyperlipidemia, Hypertension, Liver Disease, Renal Disease, Thyroid Disorder Additional Past Medical History / Comment(s): liver transplant 2004 History of Any Multi-Drug Resistant Organisms: None Reported Past Surgical History: Cholecystectomy Additional Past Surgical History / Comment(s): liver transplant, spinal fusion, bilat hip replacement, spinal fusion, Past Anesthesia/Blood Transfusion Reactions: No Reported Reaction Past Psychological History: No Psychological Hx Reported Smoking Status: Former smoker Past Alcohol Use History: Occasional Past Drug Use History: None Reported Medications and Allergies Home Medications Medication Instructions Recorded Confirmed Type Docusate [Colace] 100 mg PO BID PRN 04/30/22 04/30/22 History Ergocalciferol (Vitamin D2) 1,250 mcg PO SA 04/30/22 04/30/22 History [Drisdol (50,000 Iu)] Fenofibrate Nanocrystallized 145 mg PO DAILY 04/30/22 04/30/22 History [Fenofibrate] Fluticasone Nasal [place] [Flonase 2 spray EA NOSTRIL DAILY PRN 04/30/22 04/30/22 History Nasal [place]] Insulin Glargine,Hum.rec.anlog 34 units SQ DAILY 04/30/22 04/30/22 History [Lantus Solostar Pen] Levothyroxine Sodium 112 mcg PO HS 04/30/22 04/30/22 History Loratadine [Claritin] 10 mg PO DAILY 04/30/22 04/30/22 History Losartan [Cozaar] 50 mg PO DAILY 04/30/22 04/30/22 History Rosuvastatin Calcium [Crestor] 5 mg PO DAILY 04/30/22 04/30/22 History Semaglutide [Rybelsus] 7 mg PO DAILY 04/30/22 04/30/22 History Sirolimus 1 mg PO DAILY 04/30/22 04/30/22 History [place] Superfood Supplement 1 tab PO DAILY 04/30/22 04/30/22 History Whole Fruit Supplement 3 tab PO DAILY 04/30/22 04/30/22 History amLODIPine [Norvasc] 5 mg PO DAILY 04/30/22 04/30/22 History carvediloL 25 mg PO BID-W/MEALS 04/30/22 04/30/22 History traZODone HCL [Desyrel] 100 mg PO HS PRN 04/30/22 04/30/22 History Allergies Allergy/AdvReac Type Severity Reaction Status Date / Time No Known Allergies Allergy Verified 04/30/22 13:45 Physical Exam Vitals: Vital Signs Temp Pulse Resp BP Pulse Ox 05/03/22 08:42 18 05/03/22 08:00 97.7 F 81 18 136/76 93 L 05/03/22 01:57 101.3 F H 94 16 144/71 96 05/02/22 20:00 99 18 05/02/22 19:54 100.6 F H 99 16 111/68 93 L 05/02/22 18:26 160/87 05/02/22 13:21 98 F 86 18 147/88 96 Intake and Output 05/02/22 05/03/22 05/03/22 22:59 06:59 14:59 Intake Total 120 240 Output Total 250 400 Balance -130 -400 240 Intake: Oral 120 240 Output: Urine 250 400 Other: Voiding Method Toilet Patient is awake, comfortable, not in any acute distress Examination of the heart S1 and S2 Examination of the lungs bilateral breath sounds are heard Abdomen is soft nontender Examination of lower extremity shows no evidence of edema METAL FINISHER exam grossly intact Results - Lab Results Most recent lab results Calcium 8.2 mg/dL (8.7-10.3) L 05/03/22 05:56 Magnesium 2.3 mg/dL (1.5-2.4) 05/03/22 05:56 05/03/22 05:51 05/03/22 05:56 Assessment and Plan Assessment: 1. Acute kidney injury secondary to hypotension and hypovolemia in the setting of use of angiotensin receptor blockers as well as elevated sirolimus level. Currently nonoliguric. No evidence of obstruction on ultrasound. UA shows 1+ protein and trace blood 2. Possible underlying chronic kidney disease NKF stage III with baseline creatinine not known at this time. Etiology is likely chronic use of calcineuri n inhibitors and some degree of nephrosclerosis. 3. Elevated sirolimus levels, will need to adjust dose 4. Status post liver transplant for hepatitis C and hepatocellular carcinoma in 2004 5. Right lung pneumonia maintained on antibiotics, community-acquired 6. Hypotension currently off of angiotensin receptor blockers Plan: Continue with IV fluids Hold sirolimus. and repeat level in 2 days Continue antibiotics Continue to hold off on angiotensin receptor blockers Repeat labs in a.m. Avoid nephrotoxic agents Thank you for the consultation. We'll continue to follow the patient with you during his hospitalization
[2022-05-03 12:11] LABS: Glucose,Whole Blood 264 mg/dL (70-110)
[2022-05-03 14:57] LABS: Band Neutrophils % 6 %; Eosinophils # (M) 0.12 k/uL (0-0.7); Lymphocytes # (M) 0.79 k/uL (1.0-4.8); Monocytes # (M) 0.43 k/uL (0-1.0); Neutrophils % (M) 72 %; Nucleated Red Blood Cells 0 /100 WBC (0-0); Total Cells Counted 100
[2022-05-03 14:59] LABS: RBC Morphology Normal
--- NOTE | 2022-05-03 15:47 | P.PN ---
Subjective Progress Note Date: 05/03/22 Hospital course: Patient is a very pleasant 67-year-old male who just recently moved to [facility] from [facility]. He has a past medical history of hepatitis C, hepatocellular carcinoma status post liver transplant in 2004 hypertension, hyperlipidemia, hypothyroidism, insulin-dependent diabetes mellitus, and stage IV CKD with reported baseline creatinine based on what pulled up from [place] records is 2.02. Patient presented to the emergency department on 04/30/22 with a chief complaint of shortness of breath and cough 1 week. He underwent full evaluation in the emergency department. Chest x-ray completed revealing trace bilateral pleural effusions with patchy airspace opacities within the right upper lung concerning for pneumonia. EKG completed revealing sinus mechanism and 93 beats per minute with right bundle branch block. Ultrasound of kidney/renal and bladder was completed prior to knowing patient's baseline creatinine was 2.02, renal ultrasound revealed splenomegaly. Patient was given a dose of Zosyn in the emergency department and started on IV Levaquin for treatment of his community-acquired pneumonia. He was admitted under our services and consult was placed to nephrology and infectious disease. Physical exam: Patient was seen and fully evaluated at bedside this morning. He appeared to be resting comfortably and denied having any complaints or concerns this morning. He was evaluated by infectious disease last night and Rocephin was added on to medication regimen with Levaquin. Blood cultures showing no growth after 48 hours and sputum culture pending. Morning labs reviewed. Patient with improvement in renal function with BUN of 37.4, creatinine 1.6, and GFR of 45.3. Patient continues to run elevated temps with temperature high of 101.3F over the past 24 hours. Vital signs reviewed and stable. General: Nontoxic, no distress and appears stated age. Derm: Skin warm and dry, normal coloration for ethnicity. Head: Atraumatic, normocephalic and symmetric. Eyes: EOMs intact, no lid lag, and anicteric sclera Mouth: no lip lesions, mucus membranes moist Cardiovascular: regular rate and rhythm with normal S1S2, systolic murmur, positive posterior tibial pulses bilaterally, and cap refill < 2 seconds. Lungs: Respirations even, regular, and unlabored on 2L O2 w/ SPO2 93-94% at rest. Lungs with soft expiratory wheezes, no rhonchi, no rales, no crackles, and no accessory muscle usage. Abdominal: soft, nontender to palpation, no guarding, no appreciable organomegaly Ext: ROM intact. No gross muscle atrophy, no edema, no contractures Neuro: Speech clear, face symmetrical and CN II-XII grossly intact with no noted focal neuro deficits Psych: Alert and oriented to person, place, time, and situation. Appropriate and pleasant affect. Assessment and Plan of Care: Acute hypoxic respiratory failure Sepsis secondary to community-acquired pneumonia Immunosuppressed -Oxygenation to be administered and titrated as needed to maintain SPO2 equal to or greater than 92% -Telemetry monitoring. -Monitor Pulse-oximetry -Duonebs as needed for SOB and/or wheezing -Incentive Spirometry -Antibiotics: Levofloxacin IV every 48 hours secondary to renal dosing and Rocephin 2 g daily. -Sputum culture and blood cultures negative to date. -Infectious disease consulted. At this time patient to continue antirejection medications. Acute kidney injury, on stage IV chronic kidney disease -Baseline creatinine, 2 (based on what pulled up from [place] medical records) -Could also be related to medication use especially sirolimus -Sirolimus level slightly elevated at 12.8. -UA positive for protein and blood negative for infection. -Denies any urinary complaints -Renal ultrasound negative for hydronephrosis. -Monitor urine output, trend renal function -Continue IV fluids for now -Discontinue losartan -Nephrology consulted as patient's denies patient ever being evaluated by a registered phlebotomist part time in the past. Hepatocellular carcinoma status post liver transplant in 2004 -On sirolimus, continue -Sirolimus level slightly elevated at 12.8. Diabetes, insulin-dependent -Reduced home Lantus to 17 units given decreased oral intake -Sliding scale insulin -Holding home oral hypoglycemic medications CODE STATUS: full code DVT prophylaxis: heparin Discussed with: patient and patient's and RN. Anticipated discharge date: Clinical course to determine Anticipated discharge place: Home A total of 37 minutes was spent on the care of this complex patient more than 50% of the time was spent in counseling and care coordination. I reviewed the documentation as provided by the LIZ above, who is the original author of this note. I agree with the documented assessment and plan, with the following changes: none Objective - Vital Signs Vital signs: Vital Signs Temp 97.7 F 05/03/22 08:00 Pulse 81 05/03/22 08:00 Resp 18 05/03/22 08:00 BP 136/76 05/03/22 08:00 Pulse Ox 93 L 05/03/22 08:00 FiO2 Intake & Output 05/02/22 05/03/22 05/03/22 18:59 06:59 18:59 Intake Total 120 Output Total 400 650 Balance -280 -650 Intake: Oral 120 Output: Urine 400 650 Other: Voiding Method Toilet Toilet # Voids 0 - Labs CBC & Chem 7: 05/03/22 05:51 05/03/22 05:56 Labs: Abnormal Lab Results - Last 24 Hours (Table) 04/30/22 05/02/22 05/02/22 Range/Units 16:51 12:10 17:16 RBC (4.30-5.90) m/uL Hgb (13.0-17.5) gm/dL Hct (39.0-53.0) % POC Glucose (mg/dL) 219 H 117 H (70-110) mg/dL Sirolimus 12.8 H (4.0-12.0) ng/mL 05/02/22 05/03/22 05/03/22 Range/Units 19:53 05:51 07:07 RBC 3.84 L (4.30-5.90) m/uL Hgb 11.4 L (13.0-17.5) gm/dL Hct 34.1 L (39.0-53.0) % POC Glucose (mg/dL) 250 H 168 H (70-110) mg/dL Sirolimus (4.0-12.0) ng/mL Microbiology - Last 24 Hours (Table) 04/30/22 14:20 Blood Culture - Preliminary Blood No Growth after 48 hours 04/30/22 14:40 Blood Culture - Preliminary Blood No Growth after 48 hours 05/01/22 08:20 Gram Stain - Preliminary Sputum Sputum Culture - Preliminary
[2022-05-03 16:58] LABS: Glucose,Whole Blood 236 mg/dL (70-110)
[2022-05-03 20:38] LABS: Glucose,Whole Blood 212 mg/dL (70-110)
[2022-05-03] MEDS: traZODone HCL 100 MG TAB PO PRN (20:44)
[2022-05-03] MEDS: LEVOTHYROXINE 112 MCG TAB PO SCH (20:44)
[2022-05-04 07:41] LABS: Glucose,Whole Blood 188 mg/dL (70-110)
--- NOTE | 2022-05-04 08:10 | P.PN ---
Subjective Progress Note Date: 05/03/22 Principal diagnosis: Fever Patient is a 67-year-old male with a past medical history significant for hepatitis C/hepatocele carcinoma status post liver transplant in 2004 with a history of diabetes in a patient presented to hospital with shortness of breath or cough along with a fever and concerning for pneumonia. On today's evaluation that is 05/03/2022, the patient did have a fever of 101.3F after midnight however the patient is afebrile this morning, patient men tioned feeling slightly better his breathing comfortably, the patient did have a cough because of any sputum no nausea no vomiting no abdominal pain and no diarrhea Objective - Vital Signs Vital signs: Vital Signs Temp 98.2 F 05/03/22 12:40 Pulse 78 05/03/22 12:40 Resp 18 05/03/22 12:40 BP 124/66 05/03/22 12:40 Pulse Ox 96 05/03/22 12:40 FiO2 Intake & Output 05/02/22 05/03/22 05/03/22 18:59 06:59 18:59 Intake Total 120 240 Output Total 400 650 Balance -280 -650 240 Intake: Oral 120 240 Output: Urine 400 650 Other: Voiding Method Toilet Toilet # Voids 0 - Exam GENERAL DESCRIPTION: An elderly male lying in bed in no distress RESPIRATORY SYSTEM: Unlabored breathing , decreased breath sounds at bases HEART: S1 S2 regular rate and rhythm , ABDOMEN: Soft , no tenderness EXTREMITIES: No edema feet - Labs CBC & Chem 7: 05/03/22 05:51 05/03/22 05:56 Labs: Abnormal Lab Results - Last 24 Hours (Table) 04/30/22 05/02/22 05/02/22 Range/Units 16:51 17:16 19:53 RBC (4.30-5.90) m/uL Hgb (13.0-17.5) gm/dL Hct (39.0-53.0) % BUN (9.0-27.0) mg/dL Creatinine (0.6-1.5) mg/dL Est GFR (CKD-EPI)AfAm (60.0-200.0) Est GFR (CKD-EPI)NonAf (60.0-200.0) BUN/Creatinine Ratio (12.00-20.00) Ratio Glucose (70-110) mg/dL POC Glucose (mg/dL) 117 H 250 H (70-110) mg/dL Calcium (8.7-10.3) mg/dL Total Bilirubin (0.30-1.20) mg/dL AST (14-35) U/L ALT (10-49) U/L Total Protein (6.2-8.2) g/dL Albumin (3.8-4.9) g/dL Albumin/Globulin Ratio (1.60-3.17) g/dL Sirolimus 12.8 H (4.0-12.0) ng/mL 05/03/22 05/03/22 05/03/22 Range/Units 05:51 05:56 07:07 RBC 3.84 L (4.30-5.90) m/uL Hgb 11.4 L (13.0-17.5) gm/dL Hct 34.1 L (39.0-53.0) % BUN 37.4 H (9.0-27.0) mg/dL Creatinine 1.6 H (0.6-1.5) mg/dL Est GFR (CKD-EPI)AfAm 52.5 L (60.0-200.0) Est GFR (CKD-EPI)NonAf 45.3 L (60.0-200.0) BUN/Creatinine Ratio 23.82 H (12.00-20.00) Ratio Glucose 179 H (70-110) mg/dL POC Glucose (mg/dL) 168 H (70-110) mg/dL Calcium 8.2 L (8.7-10.3) mg/dL Total Bilirubin <0.15 L (0.30-1.20) mg/dL AST 137 H (14-35) U/L ALT 108 H (10-49) U/L Total Protein 5.0 L (6.2-8.2) g/dL Albumin 2.7 L (3.8-4.9) g/dL Albumin/Globulin Ratio 1.20 L (1.60-3.17) g/dL Sirolimus (4.0-12.0) ng/mL 05/03/22 Range/Units 11:56 RBC (4.30-5.90) m/uL Hgb (13.0-17.5) gm/dL Hct (39.0-53.0) % BUN (9.0-27.0) mg/dL Creatinine (0.6-1.5) mg/dL Est GFR (CKD-EPI)AfAm (60.0-200.0) Est GFR (CKD-EPI)NonAf (60.0-200.0) BUN/Creatinine Ratio (12.00-20.00) Ratio Glucose (70-110) mg/dL POC Glucose (mg/dL) 264 H (70-110) mg/dL Calcium (8.7-10.3) mg/dL Total Bilirubin (0.30-1.20) mg/dL AST (14-35) U/L ALT (10-49) U/L Total Protein (6.2-8.2) g/dL Albumin (3.8-4.9) g/dL Albumin/Globulin Ratio (1.60-3.17) g/dL Sirolimus (4.0-12.0) ng/mL Microbiology - Last 24 Hours (Table) 05/01/22 08:20 Gram Stain - Final Sputum Sputum Culture - Final 04/30/22 14:20 Blood Culture - Preliminary Blood No Growth after 48 hours 04/30/22 14:40 Blood Culture - Preliminary Blood No Growth after 48 hours Assessment and Plan (1) Pneumonia Current Visit: Yes Status: Acute Code(s): J18.9 - PNEUMONIA, UNSPECIFIED ORGANISM SNOMED Code(s): 108672753 Plan: 1patient presented to hospital with fever increasing shortness of breath and cough in this patient with a history of renal transplant on immunosuppressive medication however no recent change in his immunosuppressive medication per patient did have evidence of right upper lobe pneumonia with concern for possible community-acquired pathogen. 2blood and sputum cultures are currently pending. 3patient to continue Levaquin and Rocephin 2 g daily while waiting for the cultures to finalize Time with Patient: Less than 30
[2022-05-04] MEDS: HEPARIN SODIUM,PORCINE/PF 5,000 UNIT/0.5 ML SYRINGE SQ SCH (08:48)
[2022-05-04] MEDS: INSULIN DETEMIR (LEVEMIR) 100 UNIT/ML SYR SQ SCH (08:48)
[2022-05-04] MEDS: INSULIN ASPART (NovoLOG) 100 UNIT/ML VIAL SQ SCH ×2 (08:48→13:42)
[2022-05-04] MEDS: amLODIPine 5 MG TAB PO SCH (08:48)
[2022-05-04] MEDS: LORATADINE 10 MG TAB PO SCH (08:49)
[2022-05-04] MEDS: NON FORMULARY DRUG (Sirolimus [Sirolimus] 1 MG Tablet) PO SCH (08:49)
[2022-05-04] MEDS: FENOFIBRATE 160 MG TAB PO SCH (08:49)
[2022-05-04] MEDS: carvediloL 12.5 MG TAB PO SCH (08:49)
[2022-05-04] MEDS: ATORVASTATIN 10 MG TAB PO SCH (08:49)
[2022-05-04 09:02] LABS: HCT 32.6 % (39.6-50.0); HGB 10.4 g/dL (13.0-17.0); MCH 28.8 pg (27.0-32.0); MCHC 31.9 g/dL (32.0-37.0); MCV 90.3 fL (80.0-97.0); Mean Platelet Volume 12.2 fL (9.5-12.2); NRBC Per 100 WBC 0 /100 WBCS (0.0-0.0); Platelet Count 249 X 10*3/uL (140-440); RBC 3.61 X 10*6/uL (4.40-5.60); RDW 15.2 % (11.5-14.5); WBC 5.63 X 10*3/uL (4.50-10.00)
[2022-05-04 09:07] VITALS: RESP 18
[2022-05-04 09:24] LABS: ALT 94 U/L (10-49); AST 100 U/L (14-35); African American GFR (CKD) 51.3 (60.0-200.0); Albumin 2.7 g/dL (3.8-4.9); Albumin/Globulin Ratio 1.29 (1.60-3.17); Alkaline Phosphatase 86 U/L (41-126); BUN/Creat Ratio 21.19 Ratio (12.00-20.00); Blood Urea Nitrogen 33.9 mg/dL (9.0-27.0); Calcium 8.4 mg/dL (8.7-10.3); Carbon Dioxide 24.4 mmol/L (20.0-27.5); Chloride 105 mmol/L (96-109); Globulin 2.1 g/dL (1.6-3.3); Glucose 173 mg/dL (70-110); Non-African American GFR(CKD) 44.2 (60.0-200.0); Potassium 4.3 mmol/L (3.5-5.5); Sodium 139 mmol/L (135-145); Total Bilirubin <0.15 mg/dL (0.30-1.20); Total Protein 4.8 g/dL (6.2-8.2)
[2022-05-04 09:37] VITALS: BP 143/78; PULSE 87; TEMP 98.4
--- NOTE | 2022-05-04 11:27 | P.PN ---
Subjective Patient is seen for follow-up for acute kidney injury which appears to be mostly prerenal He has an underlying history of hepatitis C and hepatocellular carcinoma status post liver transplant in 2004. Patient was admitted to the hospital with com plaints of cough and increased weakness and is currently being treated for pneumonia. Serology must level was elevated at 12.8 on admission. Patient had been on angiotensin receptor blockers which are currently on hold. Blood pressure was also low with systolic in the 90s on admission. Currently maintained on IV fluids. Serum creatinine down to 1.6 from 2.2 on initial admission. Overall patient states he is feeling better. Objective - Vital Signs Vital signs: Vital Signs Temp 98.4 F 05/04/22 08:00 Pulse 87 05/04/22 08:00 Resp 18 05/04/22 09:00 BP 143/78 05/04/22 08:00 Pulse Ox 96 05/04/22 08:00 FiO2 Intake & Output 05/03/22 05/04/22 05/04/22 18:59 06:59 18:59 Intake Total 360 180 Output Total 375 Balance 360 -375 180 Intake: Oral 360 180 Output: Urine 375 Other: Voiding Method Urinal Toilet Toilet Urinal - Exam Patient is awake, comfortable, not in any acute distress Examination of the heart S1 and S2 Examination of the lungs bilateral breath sounds are heard Abdomen is soft nontender Examination of lower extremities shows no evidence of edema [employer] 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[employer]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 exam grossly intact - Labs CBC & Chem 7: 05/04/22 04:49 05/04/22 04:49 Labs: Abnormal Lab Results - Last 24 Hours (Table) 05/03/22 05/03/22 05/03/22 Range/Units 05:51 11:56 16:55 RBC (4.40-5.60) X 10*6/uL Hgb (13.0-17.0) g/dL Hct (39.6-50.0) % MCHC (32.0-37.0) g/dL RDW (11.5-14.5) % Lymphocytes # (Manual) 0.79 L (1.0-4.8) k/uL Anion Gap (10.00-18.00) mmol/L BUN (9.0-27.0) mg/dL Creatinine (0.6-1.5) mg/dL Est GFR (CKD-EPI)AfAm (60.0-200.0) Est GFR (CKD-EPI)NonAf (60.0-200.0) BUN/Creatinine Ratio (12.00-20.00) Ratio Glucose (70-110) mg/dL POC Glucose (mg/dL) 264 H 236 H (70-110) mg/dL Calcium (8.7-10.3) mg/dL Total Bilirubin (0.30-1.20) mg/dL AST (14-35) U/L ALT (10-49) U/L Total Protein (6.2-8.2) g/dL Albumin (3.8-4.9) g/dL Albumin/Globulin Ratio (1.60-3.17) g/dL 05/03/22 05/04/22 05/04/22 Range/Units 20:37 04:49 04:49 RBC 3.61 L (4.40-5.60) X 10*6/uL Hgb 10.4 L (13.0-17.0) g/dL Hct 32.6 L (39.6-50.0) % MCHC 31.9 L (32.0-37.0) g/dL RDW 15.2 H (11.5-14.5) % Lymphocytes # (Manual) (1.0-4.8) k/uL Anion Gap 9.60 L (10.00-18.00) mmol/L BUN 33.9 H (9.0-27.0) mg/dL Creatinine 1.6 H (0.6-1.5) mg/dL Est GFR (CKD-EPI)AfAm 51.3 L (60.0-200.0) Est GFR (CKD-EPI)NonAf 44.2 L (60.0-200.0) BUN/Creatinine Ratio 21.19 H (12.00-20.00) Ratio Glucose 173 H (70-110) mg/dL POC Glucose (mg/dL) 212 H (70-110) mg/dL Calcium 8.4 L (8.7-10.3) mg/dL Total Bilirubin <0.15 L (0.30-1.20) mg/dL AST 100 H (14-35) U/L ALT 94 H (10-49) U/L Total Protein 4.8 L (6.2-8.2) g/dL Albumin 2.7 L (3.8-4.9) g/dL Albumin/Globulin Ratio 1.29 L (1.60-3.17) g/dL 05/04/22 Range/Units 07:40 RBC (4.40-5.60) X 10*6/uL Hgb (13.0-17.0) g/dL Hct (39.6-50.0) % MCHC (32.0-37.0) g/dL RDW (11.5-14.5) % Lymphocytes # (Manual) (1.0-4.8) k/uL Anion Gap (10.00-18.00) mmol/L BUN (9.0-27.0) mg/dL Creatinine (0.6-1.5) mg/dL Est GFR (CKD-EPI)AfAm (60.0-200.0) Est GFR (CKD-EPI)NonAf (60.0-200.0) BUN/Creatinine Ratio (12.00-20.00) Ratio Glucose (70-110) mg/dL POC Glucose (mg/dL) 188 H (70-110) mg/dL Calcium (8.7-10.3) mg/dL Total Bilirubin (0.30-1.20) mg/dL AST (14-35) U/L ALT (10-49) U/L Total Protein (6.2-8.2) g/dL Albumin (3.8-4.9) g/dL Albumin/Globulin Ratio (1.60-3.17) g/dL Microbiology - Last 24 Hours (Table) 04/30/22 14:20 Blood Culture - Preliminary Blood No Growth after 72 hours 04/30/22 14:40 Blood Culture - Preliminary Blood No Growth after 72 hours 05/01/22 08:20 Gram Stain - Final Sputum Sputum Culture - Final Assessment and Plan Assessment: 1. Acute kidney injury secondary to hypotension and hypovolemia in the setting of use of angiotensin receptor blockers as well as elevated sirolimus level. Currently nonoliguric. No evidence of obstruction on ultrasound. UA shows 1+ protein and trace blood 2. Possible underlying chronic kidney disease NKF stage III with baseline creatinine not known at this time. Etiology is likely chronic use of calcineurin inhibitors and some degree of nephrosclerosis. 3. Elevated sirolimus levels, will need to adjust dose 4. Status post liver transplant for hepatitis C and hepatocellular carcinoma in 2004 5. Right lung pneumonia maintained on antibiotics, community-acquired 6. Hypotension currently off of angiotensin receptor blockers Plan: Continue with IV fluids Hold sirolimus for 1 more day. Repeat level was drawn this morning and is currently pending. Can resume at a lower dose tomorrow depending on the level from today. Continue antibiotics Continue to hold off on angiotensin receptor blockers Repeat labs in a.m. Avoid nephrotoxic agents
[2022-05-04 12:02] LABS: Glucose,Whole Blood 271 mg/dL (70-110)
[2022-05-04] MEDS: SODIUM CHLORIDE 0.9% 1,000 ML IV SCH (12:06)
--- NOTE | 2022-05-04 15:36 | P.PN ---
Subjective Progress Note Date: 05/04/22 Principal diagnosis: Fever Patient is a 67-year-old male with a past medical history significant for hepatitis C/hepatocele carcinoma status post liver transplant in 2004 with a history of diabetes in a patient presented to hospital with shortness of breath or cough along with a fever and concerning for pneumonia. On today's evaluation that is 05/04/2022, the patient has been afebrile for more than 24 hours now, the patient denies having any fever or chills, patient is feeling better, the patient is breathing comfortably, the patient did have a cough because of any sputum no nausea no vomiting no abdominal pain and no diarrhea Objective - Vital Signs Vital signs: Vital Signs Temp 98.4 F 05/04/22 08:00 Pulse 87 05/04/22 08:00 Resp 18 05/04/22 09:00 BP 143/78 05/04/22 08:00 Pulse Ox 96 05/04/22 08:00 FiO2 Intake & Output 05/03/22 05/04/22 05/04/22 18:59 06:59 18:59 Intake Total 360 180 Output Total 375 Balance 360 -375 180 Intake: Oral 360 180 Output: Urine 375 Other: Voiding Method Urinal Toilet Toilet Urinal - Exam GENERAL DESCRIPTION: An elderly male lying in bed in no distress RESPIRATORY SYSTEM: Unlabored breathing , decreased breath sounds at bases HEART: S1 S2 regular rate and rhythm , ABDOMEN: Soft , no tenderness EXTREMITIES: No edema feet - Labs CBC & Chem 7: 05/04/22 04:49 05/04/22 04:49 Labs: Abnormal Lab Results - Last 24 Hours (Table) 05/03/22 05/03/22 05/03/22 Range/Units 05:51 16:55 20:37 RBC (4.40-5.60) X 10*6/uL Hgb (13.0-17.0) g/dL Hct (39.6-50.0) % MCHC (32.0-37.0) g/dL RDW (11.5-14.5) % Lymphocytes # (Manual) 0.79 L (1.0-4.8) k/uL Anion Gap (10.00-18.00) mmol/L BUN (9.0-27.0) mg/dL Creatinine (0.6-1.5) mg/dL Est GFR (CKD-EPI)AfAm (60.0-200.0) Est GFR (CKD-EPI)NonAf (60.0-200.0) BUN/Creatinine Ratio (12.00-20.00) Ratio Glucose (70-110) mg/dL POC Glucose (mg/dL) 236 H 212 H (70-110) mg/dL Calcium (8.7-10.3) mg/dL Total Bilirubin (0.30-1.20) mg/dL AST (14-35) U/L ALT (10-49) U/L Total Protein (6.2-8.2) g/dL Albumin (3.8-4.9) g/dL Albumin/Globulin Ratio (1.60-3.17) g/dL 05/04/22 05/04/22 05/04/22 Range/Units 04:49 04:49 07:40 RBC 3.61 L (4.40-5.60) X 10*6/uL Hgb 10.4 L (13.0-17.0) g/dL Hct 32.6 L (39.6-50.0) % MCHC 31.9 L (32.0-37.0) g/dL RDW 15.2 H (11.5-14.5) % Lymphocytes # (Manual) (1.0-4.8) k/uL Anion Gap 9.60 L (10.00-18.00) mmol/L BUN 33.9 H (9.0-27.0) mg/dL Creatinine 1.6 H (0.6-1.5) mg/dL Est GFR (CKD-EPI)AfAm 51.3 L (60.0-200.0) Est GFR (CKD-EPI)NonAf 44.2 L (60.0-200.0) BUN/Creatinine Ratio 21.19 H (12.00-20.00) Ratio Glucose 173 H (70-110) mg/dL POC Glucose (mg/dL) 188 H (70-110) mg/dL Calcium 8.4 L (8.7-10.3) mg/dL Total Bilirubin <0.15 L (0.30-1.20) mg/dL AST 100 H (14-35) U/L ALT 94 H (10-49) U/L Total Protein 4.8 L (6.2-8.2) g/dL Albumin 2.7 L (3.8-4.9) g/dL Albumin/Globulin Ratio 1.29 L (1.60-3.17) g/dL 05/04/22 Range/Units 12:01 RBC (4.40-5.60) X 10*6/uL Hgb (13.0-17.0) g/dL Hct (39.6-50.0) % MCHC (32.0-37.0) g/dL RDW (11.5-14.5) % Lymphocytes # (Manual) (1.0-4.8) k/uL Anion Gap (10.00-18.00) mmol/L BUN (9.0-27.0) mg/dL Creatinine (0.6-1.5) mg/dL Est GFR (CKD-EPI)AfAm (60.0-200.0) Est GFR (CKD-EPI)NonAf (60.0-200.0) BUN/Creatinine Ratio (12.00-20.00) Ratio Glucose (70-110) mg/dL POC Glucose (mg/dL) 271 H (70-110) mg/dL Calcium (8.7-10.3) mg/dL Total Bilirubin (0.30-1.20) mg/dL AST (14-35) U/L ALT (10-49) U/L Total Protein (6.2-8.2) g/dL Albumin (3.8-4.9) g/dL Albumin/Globulin Ratio (1.60-3.17) g/dL Microbiology - Last 24 Hours (Table) 04/30/22 14:20 Blood Culture - Preliminary Blood No Growth after 72 hours 04/30/22 14:40 Blood Culture - Preliminary Blood No Growth after 72 hours 05/01/22 08:20 Gram Stain - Final Sputum Sputum Culture - Final Assessment and Plan (1) Pneumonia Status: Acute Code(s): J18.9 - PNEUMONIA, UNSPECIFIED ORGANISM SNOMED Code(s): 307020646 Plan: 1patient presented to hospital with fever increasing shortness of breath and cough in this patient with a history of renal transplant on immunosuppressive medication however no recent change in his immunosuppressive medication per patient did have evidence of right upper lobe pneumonia with concern for possible community-acquired pathogen. 2blood and sputum cultures has been negative 3patient had shown clinical improvement with Levaquin and Rocephin 2 g daily, patient to finish therapy with oral Ceftin discussed with past practitioner for admitting team Time with Patient: Less than 30
[2022-05-04] MEDS ORDERED: LEVOFLOXACIN 750 MG TAB PO SCH (16:00)
--- NOTE | 2022-05-04 17:22 | P.DS ---
Providers Date of admission: 05/01/22 08:13 Expected date of discharge: 05/04/22 Attending physician: Adria Dillard MD Consults: 05/02/22 15:21 Consult Physician Routine Consulting Provider: Ling Tracy Consult Reason/Comments: ANNIE on CKD stage IV Do you want consulting provider notified?: Yes 05/02/22 15:38 Consult Physician Routine Consulting Provider: Raven Ames Consult Reason/Comments: pneumonia, hx of liver transplant on Sirolimus Do you want consulting provider notified?: Yes Primary care physician: Physician Nonstaff Hospital Course: Discharge Diagnosis: Acute hypoxic respiratory failure secondary to acute urinary acquired pneumonia. Sepsis secondary to community-acquired pneumonia. Patient received a four-day course of antibiotics in the hospital and was weaned off of oxygen completely. He is being discharged home on Ceftin 500 mg twice daily for an additional 7 days as recommended by infectious disease. Sputum culture negative and blood cultures showing no growth 72 hours. Immunosuppressed on antirejection medications from previous liver transplant. Acute kidney injury, on stage IV chronic kidney disease. Prior documentation from [place] a baseline creatinine is 2. Creatinine currently stable at 1.6. Patient being discharged home at this time and to follow up outpatient with seed cleaner in 1 week.= Hepatocellular carcinoma status post liver transplant in 2004. Sirolimus level was slightly elevated at 12.8. Sirolimus was held 2 days and may resume tomorrow. repeat levels were drawn but results are not available at this time. Diabetes, insulin-dependent. resume home Lantus. Hospital Course: Patient is a very pleasant 67-year-old male who just recently moved to [facility] from [facility]. He has a past medical history of hepatitis C, hepatocellular carcinoma status post liver transplant in 2004 hypertension, hyperlipidemia, hypothyroidism, insulin-dependent diabetes mellitus, and stage IV CKD with reported baseline creatinine based on what pulled up from [place] records is 2.02. Patient presented to the emergency department on 04/30/22 with a chief complaint of shortness of breath and cough 1 week. He underwent full evaluation in the emergency department. Chest x-ray completed revealing trace bilateral pleural effusions with patchy airspace opacities within the right upper lung concerning for pneumonia. EKG completed revealing sinus mechanism and 93 beats per minute with right bundle branch block. Ultrasound of kidney/renal and bladder was completed prior to knowing patient's baseline creatinine was 2.02, renal ultrasound revealed splenomegaly. Patient was given a dose of Zosyn in the emergency department and started on IV Levaquin for treatment of his community-acquired pneumonia. He was admitted under our services and consult was placed to nephrology and infectious disease. Sirolimus level was slightly elevated at 12.8. Sirolimus was held 2 days and may resume tomorrow. repeat levels were drawn but results are not available at this time. Patient received a four-day course of antibiotics in the hospital and was weaned off of oxygen completely. He is being discharged home on Ceftin 500 mg twice daily for an additional 7 days as recommended by infectious disease. Sputum cul ture negative and blood cultures showing no growth 72 hours. patient has been free from fevers times greater than 24 hours, reports feeling significantly better and denies having any shortness of breath at rest or with ambulation. Renal function stable with creatinine of 1.6. Patient appears to be doing well this morning. He is medically stable for discharge. Patient and patient's were advised that it is of utmost importance to schedule appointments in follow- up with his new PCP, hospice care transitions coordinator/correspondence clerk, and seed cleaner. Physical exam: Vital signs reviewed and stable. General: Nontoxic, no distress and appears stated age. Derm: Skin warm and dry, normal coloration for ethnicity. Head: Atraumatic, normocephalic and symmetric. Eyes: EOMs intact, no lid lag, and anicteric sclera Mouth: no lip lesions, mucus membranes moist Cardiovascular: regular rate and rhythm with normal S1S2, systolic murmur, positive posterior tibial pulses bilaterally, and cap refill < 2 seconds. Lungs: Respirations even, regular, and unlabored room air. Lungs slightly diminished with no noted wheezing, no rhonchi, no rales, no crackles, and no accessory muscle usage. Abdominal: soft, nontender to palpation, no guarding, no appreciable organomegaly Ext: ROM intact. No gross muscle atrophy, no edema, no contractures Neuro: Speech clear, face symmetrical and CN II-XII grossly intact with no noted focal neuro deficits Psych: Alert and oriented to person, place, time, and situation. Appropriate and pleasant affect. A total of 35 minutes of time were spent preparing this complex discharge summary. Pt was discharged on 05/04/22 at 11:16 AM. I reviewed the documentation as provided by the LIZ above, who is the original a uthor of this note. I agree with the documented assessment and plan, with the following changes: none Patient Condition at Discharge: Stable Plan - Discharge Summary Discharge Rx Participant: No New Discharge Prescriptions: New cefUROXime axetiL [Ceftin] 500 mg PO BID 7 Days #14 tab Continue Whole Fruit Supplement 3 tab PO DAILY Rosuvastatin Calcium [Crestor] 5 mg PO DAILY Docusate [Colace] 100 mg PO BID PRN PRN Reason: Constipation Ergocalciferol (Vitamin D2) [Drisdol (50,000 Iu)] 1,250 mcg PO SA traZODone HCL [Desyrel] 100 mg PO HS PRN PRN Reason: sleep Sirolimus 1 mg PO DAILY Losartan [Cozaar] 50 mg PO DAILY Levothyroxine Sodium 112 mcg PO HS Fluticasone Nasal [place] [Flonase Nasal [place]] 2 spray EA NOSTRIL DAILY PRN PRN Reason: Allergy Symptoms carvediloL 25 mg PO BID-W/MEALS amLODIPine [Norvasc] 5 mg PO DAILY [employer] Supplement 1 tab PO DAILY Loratadine [Claritin] 10 mg PO DAILY Semaglutide [Rybelsus] 7 mg PO DAILY Insulin Glargine,Hum.rec.anlog [Lantus Solostar Pen] 34 units SQ DAILY Fenofibrate Nanocrystallized [Fenofibrate] 145 mg PO DAILY Discharge Medication List Docusate [Colace] 100 mg PO BID PRN 04/30/22 [History] Ergocalciferol (Vitamin D2) [Drisdol (50,000 Iu)] 1,250 mcg PO SA 04/30/22 [History] Fenofibrate Nanocrystallized [Fenofibrate] 145 mg PO DAILY 04/30/22 [History] Fluticasone Nasal [place] [Flonase Nasal [place]] 2 spray EA NOSTRIL DAILY PRN 04/30/22 [History] Insulin Glargine,Hum.rec.anlog [Lantus Solostar Pen] 34 units SQ DAILY 04/30/22 [History] Levothyroxine Sodium 112 mcg PO HS 04/30/22 [History] Loratadine [Claritin] 10 mg PO DAILY 04/30/22 [History] Losartan [Cozaar] 50 mg PO DAILY 04/30/22 [History] Rosuvastatin Calcium [Crestor] 5 mg PO DAILY 04/30/22 [History] Semaglutide [Rybelsus] 7 mg PO DAILY 04/30/22 [History] Sirolimus 1 mg PO DAILY 04/30/22 [History] [place] [employer] Supplement 1 tab PO DAILY 04/30/22 [History] Whole Fruit Supplement 3 tab PO DAILY 04/30/22 [History] amLODIPine [Norvasc] 5 mg PO DAILY 04/30/22 [History] carvediloL 25 mg PO BID-W/MEALS 04/30/22 [History] traZODone HCL [Desyrel] 100 mg PO HS PRN 04/30/22 [History] cefUROXime axetiL [Ceftin] 500 mg PO BID 7 Days #14 tab 05/04/22 [Rx] Follow up Appointment(s)/Referral(s): Ling Tracy MD [STAFF PHYSICIAN] - 1 Week Gabriela Shoemaker MD [STAFF PHYSICIAN] - 06/01/22 11:30 am (hospice care transitions coordinator) Alexi Juarez DO [Doctor of Osteopathic Medicine] - 1-2 Days Patient Instructions/Handouts: Viral Pneumonia (DC) Activity/Diet/Wound Care/Special Instructions: Activity: As tolerated. Take breaks as needed. Diet: Heart healthy and carb consistent diet. Avoid salts, or foods with hidden salts such as canned or boxed foods and frozen dinners. Extra salt makes your heart work harder and traps the fluid in your body for longer. Special Instructions: Take all of your medications as directed and remember to keep all of your doctor's appointments and follow-up as needed. Thank you for your service to our country!!!! Thank you for allowing us to participate in your care, it is always an honor to care for a but was truly a pleasure having you for our patient!!! Discharge Disposition: HOME SELF-CARE
[2022-05-05] MEDS ORDERED: ERGOCALCIFEROL 1,250 MCG (50,000 IU) CAPSULE PO SCH (09:00)
--- NOTE | 2022-05-07 10:39 | CDI ---
Documentation Clarification Form Date: 05/07/22 From: Maine Champion Admit Date: 05/01/2022 08:13:00 AM Patient Name: Dominic Durán Visit Number: [id number] Discharge Date: 05/04/2022 02:15:00 PM ATTENTION: The Clinical Documentation Specialists (CDI) and [facility] Coding Staff appreciate your assistance in clarifying documentation. Please respond to the clarification below the line at the bottom and electronically sign. The CDI & [facility] Coding staff will review the response and follow-up if needed. Please note: Queries are made part of the Legal Health Record. If you have any questions, please contact the author of this message via ITS. Dr. Mirta Padilla, Sepsis is documented in the H&P which may lack sufficient clinical evidence/support in the medical record. Additional clarification is requested. 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 [x] Yes, sepsis is present on admission as evidence by (additional clinical support): SIRS criteria met + RUL pneumonia seen on CXR [ ] Yes, sepsis is present but not present on admission as evidence by (additional clinical support): [ ] No, sepsis is ruled out [ ] Other (please specify diagnosis) [ ] Unable to determine MTDD
== END 2022-05-04 14:15 | disposition home or self-care (01) | DRG 871 ==
LOC: EC 11:12 → 6NMEDSUR 14:21 → OBSVTOIN 05-01 08:13
PROVIDERS: ADMIT Student in an Organized Health Care Education/Training Program; ATTEND Student in an Organized Health Care Education/Training Program
DX: A41.9 Sepsis, unspecified organism (principal); J18.9 Pneumonia, unspecified organism; J96.01 Acute respiratory failure with hypoxia; N17.9 Acute kidney failure, unspecified; D84.821 Immunodeficiency due to drugs; Z94.4 Liver transplant status; N18.4 Chronic kidney disease, stage 4 (severe); E11.22 Type 2 diabetes mellitus with diabetic chronic kidney disease; I95.9 Hypotension, unspecified; E11.65 Type 2 diabetes mellitus with hyperglycemia; Z79.4 Long term (current) use of insulin; Z20.822 Contact with and (suspected) exposure to COVID-19; I12.9 Hypertensive chronic kidney disease with stage 1 through stage 4 chronic kidney disease, or unspecified chronic kidney disease; T45.1X5A Adverse effect of antineoplastic and immunosuppressive drugs, initial encounter; B19.20 Unspecified viral hepatitis C without hepatic coma; I45.10 Unspecified right bundle-branch block; E78.5 Hyperlipidemia, unspecified; E86.0 Dehydration; K76.9 Liver disease, unspecified; E03.9 Hypothyroidism, unspecified; E86.1 Hypovolemia; R16.1 Splenomegaly, not elsewhere classified; Z79.890 Hormone replacement therapy; Z79.899 Other long term (current) drug therapy; Z87.891 Personal history of nicotine dependence; Z85.05 Personal history of malignant neoplasm of liver; Z90.2 Acquired absence of lung [part of]; Z98.1 Arthrodesis status; Z96.643 Presence of artificial hip joint, bilateral
CPT/HCPCS: 36415; 70450; 71046; 76770; 80053; 80195; 81001; 83036; 83605; 83735; 85025; 85027; 85610; 85730; 87040; 87070; 87205; 87449; 87636; 93005; 96365; 99285

== ENCOUNTER → 2023-08-08 | Outpatient (CLI) | payer OTHER ==
--- NOTE | 2023-08-08 13:09 | CT ---
EXAMINATION TYPE: CT chest wo con CT DLP: 499.4 mGycm, Automated exposure control for dose reduction was used. DATE OF EXAM: 08/08/2023 12:54 PM COMPARISON: Chest radiograph from same day. Multiple CTs of the chest with most recent on . CLINICAL INDICATION:Male, 68 years old with history of liver transport status; PHH, check liver trans plant status TECHNIQUE: Multiple axial images were obtained through the chest. Sagittal and coronal reformats were created for review. Contrast used: mL of (None if empty) Oral contrast used: (None if empty) FINDINGS: LUNGS/ PLEURA: The elevated left diaphragm. There is streaky atelectasis/scarring in the left lung ba se. No focal consolidation, pneumothorax or pleural effusion. AIRWAY: Patent and unremarkable. HEART: Heart is mildly enlarged for size. Coronary artery atherosclerosis is present. MEDIASTINUM: No gross evidence of adenopathy. VASCULATURE: No aortic aneurysm. MUSCULOSKELETAL: No acute osseous abnormalities SOFT TISSUES/LYMPH NODES: Unremarkable. LOWER NECK: No significant findings. UPPER ABDOMEN: Nonobstructing left renal calculi measuring up to 8 mm. No right renal calculi visuali zed. IMPRESSION: 1. No evidence for acute process. 2. Elevated left left diaphragm. 3. Moderate coronary artery atherosclerosis. 4. For findings regarding liver transplant please see dedicated MRI report. Follow up recommendations for incidental pulmonary nodules, if there are any, are per [employer] or [employer]. [email or web address]/[email or web address]-[email or web address]?lang=us
--- NOTE | 2023-08-12 23:04 | MR ---
EXAMINATION TYPE: MR abdomen wo/w con DATE OF EXAM: 08/08/2023 12:56 PM CLINICAL INDICATION:Male, 68 years old with history of Z94.4 post liver transplant; PHH, Post liver t ransplant f/u COMPARISON: CT chest 08/08/2023. TECHNIQUE: Multiplanar multi-sequence imaging was performed without contrast. Post contrast imaging was performed. Post IV contrast subtraction images were also submitted for review. IV Contrast: 9 cc Gadavist FINDINGS: LOWER CHEST: No gross irregularity. ABDOMEN Liver: Postsurgical changes with liver transplant identified. There is no evidence for cirrhosis. The re is mild signal dropout on chemical shift imaging suggestive of mild hepatic steatosis. There is at least 2 areas of intrinsic high T1 signal within the liver first right hepatic lobe measuring 17 x 1 8 mm in the left second of left hepatic lobe segment 3 measuring 11 mm. No suspicious observations. Gallbladder and Bile ducts: The hepatic duct measures up to 4 mm in thickness. There is mild central dilation. No evidence for choledocholithiasis. The gallbladder surgically absent. Pancreas: No ductal dilation. No evidence for solid mass. Spleen: Scattered susceptibility lesions likely representing, gamma michael bodies are seen throughout the spleen. The spleen measures up to 13cm in size. Adrenal glands: Unremarkable. Kidneys: Scattered intrinsic high T1 signal lesions are seen throughout the kidneys which are subcent imeter in size and compatible with hemorrhagic/pronation cyst. No evidence for obstructive uropathy. No suspicious renal masses. Stomach and Bowel: No evidence for bowel wall thickening or evidence for obstruction.. Peritoneum: No evidence of pneumoperitoneum or free fluid. Vasculature: No aortic aneurysm. Musculoskeletal: The osseous structures appear intact. Postsurgical changes of the lower lumbar spine with susceptibility artifact visualized. Partially visualized suspected seroma in the surgical bed o f the lower spine subcutaneous tissues. Lymph Nodes: No gross evidence for lymphadenopathy. Abdominal wall: Unremarkable. IMPRESSION: 1. Postsurgical changes with liver transplant with 2 proteinaceous/hemorrhagic cysts within the live r. No suspicious observation that meets HCC criteria. No ductal dilation or choledocholithiasis. 2. No evidence for acute abdominal process.
== END | disposition home or self-care (01) ==
LOC: RADMRIMAIN 11:18
DX: I25.10 Atherosclerotic heart disease of native coronary artery without angina pectoris (principal); J98.6 Disorders of diaphragm; Z94.4 Liver transplant status
CPT/HCPCS: 71250; 74183; A9585

== ENCOUNTER → 2023-08-17 | Outpatient (CLI) | payer OTHER ==
--- NOTE | 2023-08-22 09:59 | MR ---
EXAMINATION: MR pelvis wo/w con DATE OF EXAM: 08/17/2023 COMPARISON: None available HISTORY: Post liver transplant x16 years/ Workup, Used Metal protocol, used non fat sat sequences due to metal from hip replacements, TECHNIQUE: Multiplanar, multisequence images of the pelvis were acquired before and after the intrave nous administration of contrast. FINDINGS: BONES/MARROW: Normal bone marrow signal. Bilateral total hip arthroplasty without evidence of complic ation. L4-S1 posterior fusion hardware without evidence of complication. Susceptibility artifact from these hardware somewhat limits evaluation of the regional structures. SOFT TISSUES: Full-thickness tear of the left gluteus medius tendon with fatty atrophy of the muscle belly. No anatomic variant. No bursal distention. No fluid collection. NEUROVASCULAR: Visualized neurovascular structures are normal. OTHER: No abnormal or masslike postcontrast enhancement. Sigmoid diverticulosis.. No mass. No lymphad enopathy. IMPRESSION: 1. Bilateral total hip arthroplasty and lumbosacral fusion hardware is grossly normal. 2. Left gluteus medius tendon tear with fatty atrophy of the muscle belly. 3. Sigmoid diverticulosis. 4. No abnormal enhancement.
== END | disposition home or self-care (01) ==
LOC: RADMRIMAIN 07:22
DX: C22.9 Malignant neoplasm of liver, not specified as primary or secondary (principal); S76.012A Strain of muscle, fascia and tendon of left hip, initial encounter; M43.27 Fusion of spine, lumbosacral region; K57.30 Diverticulosis of large intestine without perforation or abscess without bleeding; Z94.4 Liver transplant status; Z96.643 Presence of artificial hip joint, bilateral
CPT/HCPCS: 72197; A9585

== ENCOUNTER → 2024-03-03 | Outpatient (CLI) | payer OTHER | LOC: CPPFTMAIN 12:36 | PROVIDERS: ATTEND Family Medicine | DX: R06.00 Dyspnea, unspecified (principal); I25.10 Atherosclerotic heart disease of native coronary artery without angina pectoris; E11.22 Type 2 diabetes mellitus with diabetic chronic kidney disease; I11.9 Hypertensive heart disease without heart failure; N18.9 Chronic kidney disease, unspecified; E78.5 Hyperlipidemia, unspecified; E03.9 Hypothyroidism, unspecified; E55.9 Vitamin D deficiency, unspecified; K21.9 Gastro-esophageal reflux disease without esophagitis; J30.89 Other allergic rhinitis; I25.9 Chronic ischemic heart disease, unspecified; G31.84 Mild cognitive impairment of uncertain or unknown etiology; Z88.8 Allergy status to other drugs, medicaments and biological substances; Z87.891 Personal history of nicotine dependence; Z79.4 Long term (current) use of insulin; Z79.84 Long term (current) use of oral hypoglycemic drugs; Z79.899 Other long term (current) drug therapy; Z79.890 Hormone replacement therapy | CPT/HCPCS: 94060; 94726; 94729 ==

== ENCOUNTER → 2024-04-17 | Outpatient (CLI) | payer OTHER ==
--- NOTE | 2024-05-05 12:45 | CT ---
Patient: Dominic Durán Ordering Physician: Unknown, Unknown ID: [id number] Phone, Pager: Phone: N /A Pager: N/A : 1955 Age/Gender: 69Y, M Primary Location: N/A Procedure: CT CHEST WO CONT HI RES Study Date: 04/17/2024 11:28:00 AM EXAMINATION TYPE: CT chest wo con DATE OF EXAM: 04/17/2024 COMPARISON: 08/08/2023 HISTORY: Liver transplant status CT DLP: 499 point for mGycm, Automated exposure control for dose reduction was used. CONTRAST: None TECHNIQUE: Axial images were obtained at 1 mm thick sections at 10 mm intervals. This will limit po rtions of the examination which may not be visualized within the [id number]-jj-[id number]. Images were obtained in the prone and supine views. FINDINGS: Portion of the thyroid visualized is normal. There are a few punctate metallic devices along the posterior pleural margin right upper lung field, stable from comparison. Some scarring is. Some scarring is in the anterior lateral left lower lung fi eld, example image series 4 image 147 within the left lung, stable from comparison. No suspicious in terval change between prone and supine imaging. No enlarged mediastinal or hilar adenopathy is evident. The ascending aorta diameter at the level o f the main pulmonary artery is 3.4 cm. The main pulmonary artery diameter at the bifurcation is 2.[address] sections are obtained through the upper abdomen. Abdomen is essentially unremarkable. IMPRESSION: 1. Stable appearing scarring left lung. 2. No suspicious new or changing abnormalities
--- NOTE | 2024-05-15 11:48 | FL ---
Dominic Durán : 1955 EXAMINATION TYPE: FL sniff test without CXR DATE OF EXAM: 04/17/2024 Comparison: None Total fluoroscopy time 55 seconds. Total images: 10 Total DAP: 25 mGycm2. Clinical History: 69-year-old male rule out left-sided diaphragmatic paralysis, increasing shallow br eathing and shortness of breath. TECHNIQUE: Real-time fluoroscopy fluoroscopic assessment of the diaphragm during quiet breathing, erick p inspiration expiration, and sniffing maneuver. Findings: At baseline, we note surgical clips in the right hilum and marked asymmetric elevation of the left he midiaphragm. There is strandy scarring or atelectasis noted at the left base. During quiet breathing, there is minimal movement of the left hemidiaphragm. During deep inspiration and expiration, again, minimal and sluggish movement is noted on the left. During sniffing maneuver, there is minimal paradoxical movement of the left hemidiaphragm. Impression: 1. Marked asymmetric elevation left hemidiaphragm may in part relate to volume loss from patient's re ported left lower lobectomy. 2. However, in addition, there is some paradoxical movement of the left hemidiaphragm noted during sn iffing maneuver suggesting concurrent left hemidiaphragmatic paralysis.
== END | disposition home or self-care (01) ==
LOC: RADCTMAIN 10:05
PROVIDERS: ATTEND Internal Medicine
DX: J98.4 Other disorders of lung (principal); J98.6 Disorders of diaphragm; Z94.4 Liver transplant status
CPT/HCPCS: 71250; 76000

== ENCOUNTER → 2024-07-09 | Outpatient (CLI) | payer MEDICARE, BC ==
--- NOTE | 2024-07-09 11:42 | CT ---
EXAMINATION TYPE: CT sinus wo con DATE OF EXAM: 07/09/2024 COMPARISON: None CLINICAL INDICATION: Male, 69 years old with history of J32.9 CHRONIC SINUSITIS; PHH, headache/sinusi tis TECHNIQUE: CT scan of the sinuses is performed without contrast, axial images are obtained, coronal r eformatted images are also reviewed. CT DLP: 461.[address] CTDI: mGy Automated exposure control for dose reduction was used. FINDINGS: There is mild mucosal thickening in the maxillary sinuses. The ostiomeatal compromise is patent. There is mild deviation nasal septum to the left. Frontal, ethmoid, sphenoid sinuses as well as the m astoid air cells and middle ear cavities are well aerated. There are no air-fluid levels to suggest acute sinusitis. The intraorbital contents appear normal with symmetric. No focal osseous lesions are seen. IMPRESSION: Mild chronic sinusitis involving the maxillary sinuses. No evidence of acute sinusitis. [facility], , 07/09/2024 11:40 AM
== END | disposition home or self-care (01) ==
LOC: RADCTMAIN 11:13
PROVIDERS: ATTEND Otolaryngology
DX: J32.0 Chronic maxillary sinusitis (principal)
CPT/HCPCS: 70486

== ENCOUNTER 2024-10-21 09:36 | Day surgery (SDC) | payer MEDICARE, BC ==
[2024-10-16 16:47] VITALS: BMI 29.7
[~2024-10-21 09:36] MED LIST: DEXAMETHASONE SOD PHOSPHATE 4 MG/ML 1 ML VIAL IV ONE; HYDROmorphone 0.5 MG/0.5 ML SYRINGE IVP PRN
[2024-10-21] MEDS: OXYMETAZOLINE 0.05% NASL SPRAY 1 SPRAY BOTTLE EA NOSTRIL PRN (10:20)
[2024-10-21] MEDS: LACTATED RINGERS 1,000 ML IV ONE (10:21)
[2024-10-21 10:36] LABS: Glucose,Whole Blood 170 mg/dL (70-110)
[2024-10-21] MEDS: LACTATED RINGERS 1,000 ML IV SCH (10:52)
[2024-10-21] MEDS: FAMOTIDINE 20 MG/2 ML VIAL IV PRN (10:52)
[2024-10-21] MEDS: ONDANSETRON 4 MG/2 ML VIAL IVP ONE (10:53)
[2024-10-21] MEDS ORDERED: PROPOFOL 10 MG/ML 20 ML VIAL IV ONE (11:57)
[2024-10-21] MEDS ORDERED: MIDAZOLAM 2 MG/2 ML VIAL ONE (11:57)
[2024-10-21] MEDS ORDERED: fentaNYL (PF) 50 MCG/ML 2 ML AMP ONE (11:57)
[2024-10-21] MEDS ORDERED: SUCCINYLCHOLINE CHLORIDE 200 MG/10 ML VIAL IV ONE (11:57)
[2024-10-21] MEDS ORDERED: PHENYLEPHRINE-0.9% NACL SYG 1,000 MCG/10 ML SYRINGE ONE (11:57)
[2024-10-21] MEDS ORDERED: LIDOCAINE 4% LTA KIT (4 ML) TOPICAL ONE (11:57)
[2024-10-21] MEDS ORDERED: LIDOCAINE 1% INJ 10MG/ML (20 ML MDV) ONE (11:57)
[2024-10-21] MEDS ORDERED: GLYCOPYRROLATE 0.2 MG/ML 2 ML VIAL ONE (11:57)
[2024-10-21] MEDS: LIDOCAINE 1%-EPI 1:100,000 20 ML VIAL SUBMUCOSAL ONE ×2 (12:19)
[2024-10-21] MEDS: BACITRACIN ZINC 500 UNIT/GM OINT 28.4 GM TUBE TOPICAL ONE ×2 (12:24→12:55)
[2024-10-21 13:25] VITALS: TEMP 97.1
--- NOTE | 2024-10-21 13:28 | P.OP ---
Date of Procedure: 10/21/24 Preoperative Diagnosis: deviated nasal septum Inferior turbinate hypertrophy Chronic sinusitis Postoperative Diagnosis: same Procedure(s) Performed: septoplasty Inferior turbinoplasty Bilateral endoscopic sinus surgery including bilateral maxillary antrostomy with removal of tissue maxillary sinus bilateral frontal sinusotomy with balloon sinus plasty Anesthesia: DMITRIY Surgeon: Kenneth Rodriguez Estimated Blood Loss (ml): 10 Pathology: other (nasal septal bone and cartilage and sinus contents) Condition: stable Disposition: PACU Indications for Procedure: this 69-year-old white male with difficulties with chronic nasal airway obstruction as well as chronic sinus recurrent sinusitis including on computed tomography scan Operative Findings: septum deviated to the left with inferior turbinate hypertrophy. Maxillary ostia were obstructed bilaterally with small polyps in the maxillary sinuses bilaterally frontal ostia appeared obstructed also Description of Procedure: The patient was brought into the operative suite and placed in a supine position. The patient underwent induction of general anesthesia with oral endotracheal intubation without difficulty. The patient was prepped and draped in the usual aseptic fashion with the orbits in the operating field for monitoring to the case and the computed tomography scan was on the computer screen for review throughout the case. 1% lidocaine with 1 :100,000 epinephrine was infused submucosally into both sides of the nasal septum as well as the lateral nasal wall and anterior tips of the middle turbinates. While this was taking vasoconstrictive effect the inferior turbinates were infractured with [place]view elevator and partial submucous resection of the inferior turbinates was performed with a portion of the submucosal soft tissue and the inferior turbinate bone removed with Coblation device. The inferior turbinates were then outfractured with the [place]view elevator. A left hemitransfixion incision was then made with the mucoperichondrial and mucoperiosteal flap on the left elevated. The bony cartilaginous junction was disarticulated and the mucoperiosteal flap on the right was elevated. Bony nasal septal deformities were removed with [place] forceps and an inferior cartilaginous strip was removed leaving a full 1.5 cm caudal strut. Checking intranasally this corrected the nasoseptal deformities and the hemitransfixion incision was closed with a running 4-0 chromic suture. Full 0 endoscopic examination is performed bilaterally. Beginning on the left, the middle turbinate was medialized. The maxillary ostium was located with a ballpoint probe and an infundibulotomy was performed followed by uncinectomy. The maxillary antrostomy was enlarged at the expense of the anterior and posterior fontanelle taking care anteriorly not to injure the lac rimal bone. The maxillary sinus was evaluated with 30 and 70 endoscope .[Abnormal appearing tissue was removed from the maxillary sinus]. partial anterior ethmoidectomy was performed as the ethmoid bulla was overhanging obstructing the maxillary ostium A balloon sinuplasty using the entFoxyP2us light guided system of the frontal sinus was then performed using guided light wire technique. The frontal sinus was then explored with 30 endoscope.. Attention was then turned to the right where the procedures were followed as they had been on the left including maxillary antrostomy with removal of tissue from maxillary sinus, right partial anterior ethmoidectomy with ethmoid bullectomy and frontal sinusotomy as noted above. [Nasopore nasal dressing was placed in the middle meatus bilaterally under direct visualization]. Bilateral Vidales airway splints coated with bacitracin ointment were placed and sutured transseptally with a 4-0 nylon suture. The patient was suctioned in oral gastric fashion and was allowed to emerge from general anesthesia having tolerated procedure well and was extubated in the operating suite and transferred to the postoperative recovery area in satisfactory condition.
[2024-10-21 14:28] VITALS: RESP 18
[2024-10-21 14:46] VITALS: BP 126/79; PULSE 86
== END 2024-10-21 15:36 | disposition home or self-care (01) ==
LOC: OR 09:36
PROVIDERS: ATTEND Otolaryngology
DX: J32.0 Chronic maxillary sinusitis (principal); J34.2 Deviated nasal septum; J34.3 Hypertrophy of nasal turbinates; I25.10 Atherosclerotic heart disease of native coronary artery without angina pectoris; I13.0 Hypertensive heart and chronic kidney disease with heart failure and stage 1 through stage 4 chronic kidney disease, or unspecified chronic kidney disease; I50.9 Heart failure, unspecified; N18.30 Chronic kidney disease, stage 3 unspecified; E11.9 Type 2 diabetes mellitus without complications; E78.5 Hyperlipidemia, unspecified; Z94.4 Liver transplant status; Z79.4 Long term (current) use of insulin; Z79.890 Hormone replacement therapy; Z79.51 Long term (current) use of inhaled steroids; Z79.82 Long term (current) use of aspirin; Z79.899 Other long term (current) drug therapy
CPT/HCPCS: 30520; 31267; 31276; 31296; 31254; 88305; 88300; C1726; J2250; J0330; J0690; J2405; J2003; J3010; J3490; J2704; J2371; J1596

== ENCOUNTER 2025-01-07 09:53 | Inpatient (IN) | payer OTHER, MEDICARE ==
[2025-01-07 10:52] LABS: Glucose,Whole Blood 234 mg/dL (70-110)
[2025-01-07 11:21] LABS: Basophils # (A) 0.02 10*3/uL (0.00-0.10); Basophils % (A) 0.3 %; Eosinophils # (A) 0.08 10*3/uL (0.04-0.35); Eosinophils % (A) 1.1 %; HCT 41.7 % (39.6-50.0); HGB 13.8 g/dL (13.0-17.0); Lymphocytes % (A) 19.5 %; MCH 30.4 pg (27.0-32.0); MCHC 33.1 g/dL (32.0-37.0); MCV 91.9 fL (80.0-97.0); Mean Platelet Volume 11.8 fL (9.5-12.2); Monocytes # (A) 0.52 10*3/uL (0.20-1.00); Monocytes % (A) 7.3 %; Neutrophils # (A) 5.12 10*3/uL (1.80-7.70); Neutrophils % (A) 71.4 %; Platelet Count 171 10*3/uL (140-440); RBC 4.54 10*6/uL (4.40-5.60); RDW 14.2 % (11.5-14.5); WBC 7.17 10*3/uL (4.50-10.00)
--- NOTE | 2025-01-07 11:26 | CT ---
EXAMINATION TYPE: CODE STROKE: CT brain wo contr DATE OF EXAM: 01/07/2025 10:53 AM COMPARISON: Facial bone CT 07/09/2024 CLINICAL INDICATION: Male, 69 years old with history of Neuro deficit, acute, stroke suspected, weakn ess to left side of body, TECHNIQUE: Examination was done in axial plane without intravenous contrast. Coronal and sagittal r econstructions performed. CT DLP: 1175.6 mGycm, Automated exposure control for dose reduction was used. FINDINGS: There is no evidence of acute intracranial hemorrhage, acute ischemic changes, mass, mass-effect, or extra-axial fluid collection. There is no effacement of cerebral sulci or basal subarachnoid cister ns. There is no hydrocephalus. There is no midline shift. Lee-white matter distinction is preserv ed. There is moderate patchy white matter hypodensity and both cerebral hemispheres. Atherosclerotic calc ifications of the carotid siphons and prominent at the V3/V4 junction right vertebral artery. Mild mucosal thickening maxillary sinuses. Suspect prior fast. Mastoid air cells well pneumatized. Or bits and globes are intact. IMPRESSION: Similar moderate patchy burden of chronic small vessel ischemic disease. No acute intracranial abnorm ality seen. [facility], , 01/07/2025 11:22 AM
[2025-01-07 11:35] LABS: ALT 27 U/L (4-49); AST 29 U/L (17-59); African American GFR (CKD) 66 (>60 ml/min/1.73 sqM); Albumin 3.9 g/dL (3.5-5.0); Alkaline Phosphatase 66 U/L (38-126); Anion Gap 9 mmol/L; Blood Urea Nitrogen 36 mg/dL (9-20); Carbon Dioxide 24 mmol/L (22-30); Chloride 106 mmol/L (98-107); Creatine Kinase 201 U/L (55-170); Glucose 237 mg/dL (74-99); Non-African American GFR(CKD) 57 (>60 ml/min/1.73 sqM); Potassium 4.1 mmol/L (3.5-5.1); Sodium 139 mmol/L (137-145); Total Bilirubin 0.4 mg/dL (0.2-1.3); Total Protein 6.3 g/dL (6.3-8.2)
--- NOTE | 2025-01-07 11:50 | CT ---
EXAMINATION TYPE: CT angio head neck DATE OF EXAM: 01/07/2025 11:33 AM COMPARISON: CT brain same day. CLINICAL INDICATION: Male, 69 years old with history of Neuro deficit, acute, stroke suspected; PHH, weakness to left side of body TECHNIQUE: Axially acquired helical CT angiogram of the head and neck was obtained with contrast. Axi al images are supplemented with 3D reconstructions and MIP images which were post-processed at an in dependent workstation. NASCET criteria used. Contrast used:65 mL of Isovue 370 with IV Contrast, Oral contrast used: None. CT DLP: 645.1 mGycm, Automated exposure control for dose reduction was used. FINDINGS: CTA HEAD: CTA NECK: Some soft tissue thickening along the supraglottic region with asymmetric effacement of the right pir iform sinus. Recommend direct visualization to exclude a mucosal lesion here. The bilateral common carotid arteries are patent. There is mild atherosclerotic plaque and calcification at the bilateral carotid bifurcations with mil d, less than 15% narrowing proximal left ICA. Short retropharyngeal course of the ICAs which otherwise remain patent. Partially visualized pleural-based calcification lateral left lower lobe with a suspected adjacent pl eural parenchymal scarring. Possible surgical clips along the right paraspinal subpleural region. A few small 3 mm pulmonary nodules of questionable clinical significance. Conventional arterial some branching anatomy. There is small caliber to the bilateral vertebral arteries with the right vertebral artery being nond ominant. Head: The vertebral and basilar arteries are small in caliber. The left vertebral artery is dominant. Severe atherosclerotic calcifications narrowing the V3/V4 junction of the right vertebral artery. Dis katie V4 segment right vertebral artery not seen. Subsequent loss of enhancement of the diminutive mid basilar artery. There is persistent origin of the bilateral posterior cerebral arteries supplying the posterior circulation and distal basilar artery. Mild atherosclerotic calcifications within the carotid siphons. The bilateral internal carotid arteri es are patent as is the remainder of the anterior circulation. No aneurysmal change is seen. IMPRESSION: Neck: 1. Diminutive bilateral vertebral arteries (likely on a congenital basis) with a nondominant right ve rtebral artery. 2. Mild atherosclerotic change at the carotid bifurcations. Minimal, less than 15% proximal left ICA stenosis. 3. Soft tissue thickening in the supraglottic region with asymmetric effacement of the right piriform sinus. Recommend direct visualization to exclude a mucosal lesion here. Head: 4. Small caliber to the vertebral basilar system. Query any chronic symptoms of vertebrobasilar insuf ficiency. Severe atherosclerotic change of the V3/V4 junction right vertebral artery with loss of enh ancement of the distal V4 segment. 5. There is also loss of enhancement at the mid basilar artery. 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 This also provides retrograde flow to the distal basilar artery. Suspect these to be a more chronic finding rather than acute thrombosis. Further clin ical correlation recommended. 6. Mild atherosclerotic change in the bilateral carotid siphons. Patent ICAs and anterior circulation . 7. No aneurysmal change is seen. [facility], , 01/07/2025 11:48 AM
[2025-01-07 11:51] LABS: Appearance,Urine Clear (Clear); Bilirubin,Urine Negative (Negative); Blood,Urine Negative (Negative); Color,Urine Colorless; Glucose,Urine (UA) 4+ (Negative); Ketones,Urine Negative (Negative); Leukocyte Esterase,Urine Negative (Negative); Nitrite,Urine Negative (Negative); PH, Urine 5.5 (5.0-8.0); Protein,Urine Negative (Negative); Specific Gravity,Urine 1.022 (1.001-1.035); Urobilinogen,Urine <2.0 mg/dL (<2.0)
--- NOTE | 2025-01-07 11:54 | XR ---
EXAMINATION TYPE: XR chest 2V DATE OF EXAM: 01/07/2025 11:38 AM COMPARISON: 04/09/2024 and sniff test 04/17/2024. CLINICAL INDICATION: Male, 69 years old with history of altered mental status, confusion TECHNIQUE: AP and lateral views FINDINGS: Ongoing asymmetric elevation left hemidiaphragm with some strandy left basilar opacity. Suspect previ ous right upper chest thoracotomy change. Surgical clips along the right paratracheal region. Left he art margin obscured by the elevated diaphragm. Right lung and pleural space appear clear. No pleural effusion on the lateral view. IMPRESSION: Post thoracotomy changes on the right. Ongoing findings of left hemidiaphragmatic paralysis. Strandy scarring/atelectasis at the left base. No acute change identified. [facility], , 01/07/2025 11:52 AM
[2025-01-07] MEDS: ASPIRIN 325 MG TAB PO STA (13:54)
[2025-01-07 13:57] LABS: INR 0.9 (<1.2); Prothrombin Time 10.6 sec (10.0-12.5)
--- NOTE | 2025-01-07 14:01 | ED ---
General Adult HPI - General Chief complaint: Weakness Stated complaint: weakness Time Seen by Provider: 01/07/25 10:42 Source: patient, RN notes reviewed, old records reviewed Mode of arrival: ambulatory Limitations: no limitations - History of Present Illness Initial comments: Patient is a 69-year-old male who presents emergency department complaining of left-sided weakness. States it started aggressively over the course of yesterday afternoon. Was working outside and then when he came in he slowly got more more weak. Thought it might be related to heat exhaustion but it was only isolated to the left side. Has a history of chronic left shoulder rotator cuff injury. But has noticed more forearm weakness over that period of time. Has also noticed more left leg weakness. Denies any falls or injuries. Woke up this morning and he could not walk due to left leg weakness. Was present yesterday with last known well he states probably shortly prior to 8 PM. That is when the symptoms were significant last night. Has a history of TIAs, heart failure, hypertension, hyperlipidemia, liver transplant. Is not on blood thinners. Did not injure his head. Presents for further evaluation at this time. - Related Data Home Medications Medication Instructions Recorded Confirmed Ergocalciferol (Vitamin D2) 1,250 mcg PO SA 04/30/22 01/07/25 [Drisdol (50,000 Iu)] Fenofibrate Nanocrystallized 145 mg PO DAILY 04/30/22 01/07/25 [Fenofibrate] Fluticasone Nasal [place] [Flonase 1 spray EA NOSTRIL BID 04/30/22 01/07/25 Nasal [place]] Insulin Glargine,Hum.rec.anlog 35 units SQ DAILY 04/30/22 01/07/25 [Lantus Solostar Pen] Levothyroxine Sodium 112 mcg PO DAILY 04/30/22 01/07/25 Losartan [Cozaar] 50 mg PO DAILY 04/30/22 01/07/25 Rosuvastatin Calcium [Crestor] 5 mg PO DAILY 04/30/22 01/07/25 Sirolimus [Rapamune] 0.5 mg PO DAILY 04/30/22 01/07/25 amLODIPine [Norvasc] 5 mg PO BID 04/30/22 01/07/25 carvediloL 12.5 mg PO BID-W/MEALS 04/30/22 01/07/25 traZODone HCL [Desyrel] 100 mg PO HS 04/30/22 01/07/25 Aspirin [Adult Low Dose Aspirin EC] 81 mg PO DAILY 10/16/24 01/07/25 Cetirizine HCl 10 mg PO DAILY 10/19/24 01/07/25 Empagliflozin [Jardiance] 25 mg PO DAILY 10/19/24 01/07/25 Ketoconazole 2% Shampoo [Nizoral] 1 applic TOPICAL Q48H PRN 10/19/24 01/07/25 Loperamide [Imodium] 2 mg PO Q8H PRN 10/19/24 01/07/25 Nateglinide 120 mg PO TID 10/19/24 01/07/25 Omeprazole 40 mg PO DAILY 10/19/24 01/07/25 Semaglutide [Ozempic] 1 mg SQ TU 10/19/24 01/07/25 Albuterol Sulfate [Albuterol 2 puff INHALATION RT-Q6H PRN 01/07/25 01/07/25 Sulfate Hfa] [place]-3/Dha/Epa/Fish Oil [Fish Oil 2 cap PO DAILY 01/07/25 01/07/25 1,000 mg Softgel] Allergies Allergy/AdvReac Type Severity Reaction Status Date / Time adhesive Allergy Mild skin Verified 01/07/25 13:02 irritation Review of Systems ROS Statement: Those systems with pertinent positive or pertinent negative responses have been documented in the HPI. Review of Systems: CONST: Denies fever EYES: Denies blurry vision ENT: Denies nasal congestion C/V: Denies Chest pain RESP: Denies shortness of breath GI: Denies abdominal pain : Denies dysuria SKIN: Denies rash. MSK: Denies joint pain. NEURO: Endorses left-sided weakness ROS Other: All systems not noted in ROS Statement are negative. Past Medical History Past Medical History: Heart Failure, CVA/TIA, Hyperlipidemia, Hypertension, Liver Disease Additional Past Medical History / Comment(s): liver transplant 2004 History of Any Multi-Drug Resistant Organisms: None Reported Past Surgical History: Cholecystectomy Additional Past Surgical History / Comment(s): liver transplant, spinal fusion, bilat hip replacement, spinal fusion, left lower lung removal Past Anesthesia/Blood Transfusion Reactions: No Reported Reaction Additional Past Anesthesia/Blood Transfusion Reaction / Comment(s): No hx of blood tranfusion reactions Past Psychological History: No Psychological Hx Reported Smoking Status: Former smoker - Past Family History Mother Family Medical History: No Reported History Additional Family Medical History / Comment(s): No known family hx of CA or blood clots reported. General Exam - General Exam Comments Initial Comments: General: Appears in no acute distress. HEAD: Normal with no signs of head trauma. EYES: PERRLA, EOMI, conjunctiva normal, no discharge. Pupils 3 mm and equal bilaterally. ENT: Hearing grossly intact, normal oropharynx. RESPIRATORY: Clear breath sounds bilaterally. No wheezes, rales, or rhonchi. C/V: Regular rate and rhythm. S1 and S2 auscultated, no edema, peripheral pulses 2+ and intact throughout ABD: Abd is soft, nontender, nondistended EXT: Normal range of motion, no obvious deformity SKIN: No rashes or lesions observed on exposed skin. NEURO: Alert and oriented x 4. NIH is approximately 2 for left upper extremity weakness/drift as well as left lower extremity drift weakness. Limitations: no limitations Course Vital Signs 01/07/25 01/07/25 01/07/25 09:58 11:22 11:45 Temperature 98.2 F Pulse Rate 85 83 85 Respiratory 20 18 18 Rate Blood Pressure 152/65 149/93 137/83 O2 Sat by Pulse 95 100 98 Oximetry 01/07/25 01/07/25 12:45 14:27 Temperature Pulse Rate 76 73 Respiratory 18 18 Rate Blood Pressure 130/86 149/96 O2 Sat by Pulse 95 100 Oximetry Medical Decision Making - Medical Decision Making Was pt. sent in by a medical professional or institution (, PA, SURVEY ASSOCIATE, urgent care, hospital, or prison...) When possible be specific @ -No Did you speak to anyone other than the patient for history (EMS, parent, family, police, friend...)? What history was obtained from this source @ -Patient's is at bedside and helps with the patient's past medical history. Did you review nursing and triage notes (agree or disagree)? Why? @ -I reviewed and agree with nursing and triage notes Were old charts reviewed (outside hosp., previous admission, EMS record, old EKG, old radiological studies, urgent care reports/EKG's, prison records)? Report findings @ -No old charts were reviewed Differential Diagnosis (chest pain, altered mental status, abdominal pain women, abdominal pain men, vaginal bleeding, weakness, fever, dyspnea, syncope, headache, dizziness, GI bleed, back pain, seizure, CVA, palpatations, mental health, musculoskeletal)? @ -Differential CVA Ischemic stroke, hemorrhagic stroke, brain tumor, atypical migraine, Wernicke's encephalopathy, seizure, multiple sclerosis, meningitis, encephalitis, hypoglyce ursula, Guillain-Lopez, electrolytes disturbance, myasthenia gravis.... This is not meant to be an all-inclusive list EKG interpreted by me (3pts min.). @ -As above X-rays interpreted by me (1pt min.). @ -Chest x-ray shows no obvious acute cardiopulmonary process. CT interpreted by me (1pt min.). @ -Brain CT shows no obvious acute intracranial process. CT angiogram head and neck shows no obvious significant acute blockage. Suspected chronic basilar bilateral vertebral arteries with small caliber of the vertebral basilar system. The seem to be chronic per radiology. Confirmed with neuro crit care Dr. Marcum who agrees that is likely chronic. U/S interpreted by me (1pt. min.). @ -None done What testing was considered but not performed or refused? (CT, X-rays, U/S, labs)? Why? @ -None What meds were considered but not given or refused? Why? @ -None Did you discuss the management of the patient with other professionals (professionals i.e. DrSoledad, PA, SURVEY ASSOCIATE, lab, RT, psych nurse, perinatal social worker, white sourer, teacher, chief environmental commitment officer, case fitter)? Give summary @ -Discussed with Dr. Marcum of neurocritical care who was in agreement with plan for workup. I did contact him when the results of the imaging returned. There was a long delay as he needed to pull up the images and was having diffi culty doing so. Was able to access the CT angiogram as well as CT brain. Believes the findings on there are chronic however is still requesting admission to the ICU for every hour neurochecks as well as initiating aspirin and Brilinta. Discussed with the on-call neurologist, Dr. Juares who is in agreement with the plan. Discussed with the admitting provider, Dr. Dillard who accepted the admission. Was smoking cessation discussed for >3mins.? @ -No Was critical care preformed (if so, how long)? @ -Yes, 41 minutes Were there social determinants of health that impacted care today? How? (Homel essness, low income, unemployed, alcoholism, drug addiction, transportation, low edu. Level, literacy, decrease access to med. care, correction, rehab)? @ -No Was there de-escalation of care discussed even if they declined (Discuss DNR or withdrawal of care, Hospice)? DNR status @ -No What co-morbidities impacted this encounter? (DM, HTN, Smoking, COPD, CAD, Cancer, CVA, ARF, Chemo, Hep., AIDS, mental health diagnosis, sleep apnea, morbid obesity)? @ -None Was patient admitted / discharged? Hospital course, mention meds given and route, prescriptions, significant lab abnormalities, going to OR and other pertinent info. @ -Presents for CVA symptoms. Originally triaged as weakness but patient has unilateral weakness of the left side. NIH is 2. Patient is not a tenecteplase candidate as he has had symptoms since last night and risks outweigh the benefits. Patient was made a code stroke. EKG showed no signs of acute ischemia. Vital signs are within acceptable limits. Laboratory studies returned unremarkable for any obvious acute process. Mildly hyperglycemic. Imaging remarkable for likely chronic diminutive flow in the posterior circulation. Discussed with Dr. Marcum of neurocritical care who was in agreement with plan for workup. I did contact him when the results of the imaging returned. There was a long delay as he needed to pull up the images and was having difficulty doing so. Was able to access the CT angiogram as well as CT brain. Believes the findings on there are chronic however is still requesting admission to the ICU for every hour neurochecks as well as initiating aspirin and Brilinta. Discussed with the on-call neurologist, Dr. Juares who is in agreement with the plan. Undiagnosed new problem with uncertain prognosis? @ -No Drug Therapy requiring intensive monitoring for toxicity (Heparin, Nitro, Insulin, Cardizem)? @ -No Were any procedures done? @ -No Diagnosis/symptom? @ -CVA Acute, or Chronic, or Acute on Chronic? @ -Acute Uncomplicated (without systemic symptoms) or Complicated (systemic symptoms)? @ -Complicated Side effects of treatment? @ -No Exacerbation, Progression, or Severe Exacerbation? @ -No Poses a threat to life or bodily function? How? (Chest pain, USA, PR, pneumonia, PE, COPD, DKA, ARF, appy, cholecystitis, CVA, Diverticulitis, Homicidal, Suicidal, threat to staff... and all critical care pts) @ -Yes - Lab Data Result diagrams: 01/07/25 11:04 01/07/25 11:04 Lab Results 01/07/25 01/07/25 01/07/25 Range/Units 10:51 11:04 11:04 WBC 7.17 (4.50-10.00) 10*3/uL RBC 4.54 (4.40-5.60) 10*6/uL Hgb 13.8 (13.0-17.0) g/dL Hct 41.7 (39.6-50.0) % MCV 91.9 (80.0-97.0) fL MCH 30.4 (27.0-32.0) pg MCHC 33.1 (32.0-37.0) g/dL Plt Count 171 (140-440) 10*3/uL MPV 11.8 (9.5-12.2) fL Immature Gran % (Auto) 0.4 % Neutrophils % 71.4 % Lymphocytes % 19.5 % Monocytes % 7.3 % Eosinophils % 1.1 % Basophils % 0.3 % Immature Gran # 0.03 (0.00-0.04) 10*3/uL Neutrophils # 5.12 (1.80-7.70) 10*3/uL Lymphocytes # 1.40 (0.90-5.00) 10*3/uL Monocytes # 0.52 (0.20-1.00) 10*3/uL Eosinophils # 0.08 (0.04-0.35) 10*3/uL Basophils # 0.02 (0.00-0.10) 10*3/uL PT (10.0-12.5) sec INR (<1.2) APTT (22.0-30.0) sec Sodium 139 (137-145) mmol/L Potassium 4.1 (3.5-5.1) mmol/L Chloride 106 (98-107) mmol/L Carbon Dioxide 24 (22-30) mmol/L Anion Gap 9 mmol/L BUN 36 H (9-20) mg/dL Creatinine 1.29 H (0.66-1.25) mg/dL Est GFR (CKD-EPI)AfAm 66 (>60 ml/min/1.73 sqM) Est GFR (CKD-EPI)NonAf 57 (>60 ml/min/1.73 sqM) Glucose 237 H (74-99) mg/dL POC Glucose (mg/dL) 234 H (70-110) mg/dL POC Glu Sack Sewer ID Omkar Enciso Calcium 10.0 (8.4-10.2) mg/dL Total Bilirubin 0.4 (0.2-1.3) mg/dL AST 29 (17-59) U/L ALT 27 (4-49) U/L Alkaline Phosphatase 66 (38-126) U/L Creatine Kinase 201 H (55-170) U/L Total Protein 6.3 (6.3-8.2) g/dL Albumin 3.9 (3.5-5.0) g/dL Urine Color Urine Appearance (Clear) Urine pH (5.0-8.0) Ur Specific [place] (1.001-1.035) Urine Protein (Negative) Urine Glucose (UA) (Negative) Urine Ketones (Negative) Urine Blood (Negative) Urine Nitrite (Negative) Urine Bilirubin (Negative) Urine Urobilinogen (<2.0) mg/dL Ur Leukocyte Esterase (Negative) 01/07/25 01/07/25 Range/Units 11:29 13:13 WBC (4.50-10.00) 10*3/uL RBC (4.40-5.60) 10*6/uL Hgb (13.0-17.0) g/dL Hct (39.6-50.0) % MCV (80.0-97.0) fL MCH (27.0-32.0) pg MCHC (32.0-37.0) g/dL Plt Count (140-440) 10*3/uL MPV (9.5-12.2) fL Immature Gran % (Auto) % Neutrophils % % Lymphocytes % % Monocytes % % Eosinophils % % Basophils % % Immature Gran # (0.00-0.04) 10*3/uL Neutrophils # (1.80-7.70) 10*3/uL Lymphocytes # (0.90-5.00) 10*3/uL Monocytes # (0.20-1.00) 10*3/uL Eosinophils # (0.04-0.35) 10*3/uL Basophils # (0.00-0.10) 10*3/uL PT 10.6 (10.0-12.5) sec INR 0.9 (<1.2) APTT 21.8 L (22.0-30.0) sec Sodium (137-145) mmol/L Potassium (3.5-5.1) mmol/L Chloride (98-107) mmol/L Carbon Dioxide (22-30) mmol/L Anion Gap mmol/L BUN (9-20) mg/dL Creatinine (0.66-1.25) mg/dL Est GFR (CKD-EPI)AfAm (>60 ml/min/1.73 sqM) Est GFR (CKD-EPI)NonAf (>60 ml/min/1.73 sqM) Glucose (74-99) mg/dL POC Glucose (mg/dL) (70-110) mg/dL POC Glu Sack [place]er ID Calcium (8.4-10.2) mg/dL Total Bilirubin (0.2-1.3) mg/dL AST (17-59) U/L ALT (4-49) U/L Alkaline Phosphatase (38-126) U/L Creatine Kinase (55-170) U/L Total Protein (6.3-8.2) g/dL Albumin (3.5-5.0) g/dL Urine Color Colorless Urine Appearance Clear (Clear) Urine pH 5.5 (5.0-8.0) Ur Specific [place] 1.022 (1.001-1.035) Urine Protein Negative (Negative) Urine Glucose (UA) 4+ H (Negative) Urine Ketones Negative (Negative) Urine Blood Negative (Negative) Urine Nitrite Negative (Negative) Urine Bilirubin Negative (Negative) Urine Urobilinogen <2.0 (<2.0) mg/dL Ur Leukocyte Esterase Negative (Negative) - EKG Data -: EKG Interpreted by Me EKG Comments: 12-lead Electrocardiogram Interpretation Note EKG was reviewed and interpreted by myself. 12-lead ECG performed at 1059 is interpreted by me as revealing normal sinus rhythm at a rate of 80 beats per minute. Left axis deviation. OR interval is 145 ms, QRS duration is 182 ms, QTc is 1466 ms. Right bundle branch block present.. There were no ST or T wave abnormalities to suggest myocardial ischemia or injury. R wave progression across the precordium was satisfactory. By my interpretation this EKG is non- diagnostic for acute ischemia. Critical Care Time Critical Care Time: Yes Total Critical Care Time: 41 Disposition Clinical Impression: CVA (cerebral vascular accident) Disposition: ADMITTED IP TO THIS HOSP Condition: Stable Is patient prescribed a controlled substance at d/c from ED?: No Time of Disposition: 14:00
[2025-01-07 14:04] LABS: Partial Thromboplastin Time 21.8 sec (22.0-30.0)
[2025-01-07] MEDS ORDERED: DEXTROSE 50% SYRINGE 50 ML IVP PRN ×2 (14:51)
[2025-01-07] MEDS: TICAGRELOR 90 MG TAB PO STA (15:01)
[2025-01-07] MEDS: ASPIRIN 81 MG PO STA (15:01)
[2025-01-07 15:44] LABS: Glucose,Whole Blood 222 mg/dL (70-110)
--- NOTE | 2025-01-07 15:59 | P.CNPUL ---
History of Present Illness Consult date: 01/07/25 Chief complaint: CVA History of present illness: This is a 69-year-old male patient who presented to the emergency department with left-sided weakness. A code stroke was activated. The patient was given initial CAT scan of the brain and the CAT scan showed moderate patchy burden of chronic's small vessel ischemic disease without any acute process. 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 Mild atherosclerosis of the carotid bifurcation, less than 50% proximal left ICA stenosis and there was also a soft tissue thickening in the supraglottic region with some asymmetry and effacement of the right piriform sinus and direct visualization by ENT was recommended. The small caliber of the vestibular system raise concerns for vertebrobasilar insufficiency. There was severe atherosclerotic change at the level of V3/V4 junction of the right vertebral artery with loss of enhancement of the distal V4 segment. There was also loss and enhancement at the mid basilar artery. The posterior circulation was preserved due to persistent origin of the bilateral cyberathlete. There was also retrograde flow to the distal basilar artery and this is suspected to be chronic rather than acute thrombosis. Neuro interventionalists was consulted and the patient was not given thrombolytics. He was recommended for this patient to com e to the ICU for hourly neurochecks. Cardiac rhythm is sinus. Hemodynamically stable. No significant hyper or hypotension. The CBC is within normal limits. Coagulation profile is within normal limits. BUN 36 with a creatinine of 1.20 patient is chronic stage III kidney disease and the current GFR is 57. Electrolytes all within normal limits. LFTs are normal. The patient has undergone previous liver transplantation for liver cancer. This was a complication of previous hepatitis C infection. Is also undergone a left lower lobe resection where metastasis was present in the left lung. He does have chronic left hemidiaphragmatic paralysis post surgery and the left hemidiaphragm remains quite elevated. Other comorbidities include hypothyroidism, diabetes and hyperlipidemia and hypertension. He is maintained on Rapamune on a chronic basis. Review of Systems 12 point review of system was done and the positive findings were mentioned above history of present illness. No chest pain. No shortness of breath. No palpitations. No cardiac arrhythmias. No swelling lower extremities. No signs of any cardiomyopathy. No head trauma. Continues to have some left-sided weakness specially left upper extremity. No altered mentation. No difficulties with speech. Past Medical History Past Medical History: Heart Failure, CVA/TIA, Hyperlipidemia, Hypertension, Liver Disease Additional Past Medical History / Comment(s): liver transplant 2004 History of Any Multi-Drug Resistant Organisms: None Reported Past Surgical History: Cholecystectomy Additional Past Surgical History / Comment(s): liver transplant, spinal fusion, bilat hip replacement, spinal fusion, left lower lung removal Past Anesthesia/Blood Transfusion Reactions: No Reported Reaction Additional Past Anesthesia/Blood Transfusion Reaction / Comment(s): No hx of blood tranfusion reactions Past Psychological History: No Psychological Hx Reported Smoking Status: Former smoker - Past Family History Mother Family Medical History: No Reported History Additional Family Medical History / Comment(s): No known family hx of CA or blood clots reported. Medications and Allergies Home Medications Medication Instructions Recorded Confirmed Type Ergocalciferol (Vitamin D2) 1,250 mcg PO SA 04/30/22 01/07/25 History [Drisdol (50,000 Iu)] Fenofibrate Nanocrystallized 145 mg PO DAILY 04/30/22 01/07/25 History [Fenofibrate] Fluticasone Nasal [place] [Flonase 1 spray EA NOSTRIL BID 04/30/22 01/07/25 History Nasal [place]] Insulin Glargine,Hum.rec.anlog 35 units SQ DAILY 04/30/22 01/07/25 History [Lantus Solostar Pen] Levothyroxine Sodium 112 mcg PO DAILY 04/30/22 01/07/25 History Losartan [Cozaar] 50 mg PO DAILY 04/30/22 01/07/25 History Rosuvastatin Calcium [Crestor] 5 mg PO DAILY 04/30/22 01/07/25 History Sirolimus [Rapamune] 0.5 mg PO DAILY 04/30/22 01/07/25 History amLODIPine [Norvasc] 5 mg PO BID 04/30/22 01/07/25 History carvediloL 12.5 mg PO BID-W/MEALS 04/30/22 01/07/25 History traZODone HCL [Desyrel] 100 mg PO HS 04/30/22 01/07/25 History Aspirin [Adult Low Dose Aspirin EC] 81 mg PO DAILY 10/16/24 01/07/25 History Cetirizine HCl 10 mg PO DAILY 10/19/24 01/07/25 History Empagliflozin [Jardiance] 25 mg PO DAILY 10/19/24 01/07/25 History Ketoconazole 2% Shampoo [Nizoral] 1 applic TOPICAL Q48H PRN 10/19/24 01/07/25 History Loperamide [Imodium] 2 mg PO Q8H PRN 10/19/24 01/07/25 History Nateglinide 120 mg PO TID 10/19/24 01/07/25 History Omeprazole 40 mg PO DAILY 10/19/24 01/07/25 History Semaglutide [Ozempic] 1 mg SQ TU 10/19/24 01/07/25 History Albuterol Sulfate [Albuterol 2 puff INHALATION RT-Q6H PRN 01/07/25 01/07/25 History Sulfate Hfa] [place]-3/Dha/Epa/Fish Oil [Fish Oil 2 cap PO DAILY 01/07/25 01/07/25 History 1,000 mg Softgel] Allergies Allergy/AdvReac Type Severity Reaction Status Date / Time adhesive Allergy Mild skin Verified 01/07/25 13:02 irritation Physical Exam Vitals: Vital Signs Temp Pulse Resp BP Pulse Ox 01/07/25 14:27 73 18 149/96 100 01/07/25 12:45 76 18 130/86 95 01/07/25 11:45 85 18 137/83 98 01/07/25 11:22 83 18 149/93 100 01/07/25 09:58 98.2 F 85 20 152/65 95 Intake and Output 01/07/25 01/07/25 01/07/25 06:59 14:59 22:59 Other: Weight 93.44 kg The patient appeared well nourished and normally developed. Vital signs as do cumented. Head exam is unremarkable. No scleral icterus or corneal arcus noted. Neck is without jugular venous distension, thyromegaly, or carotid bruits. Carotid upstrokes are brisk bilaterally. Lungs are clear to auscultation and percussion. Cardiac exam reveals the PMI to be normally sized and situated. Rhythm is regular. First and second heart sounds normal. No murmurs, rubs or gallops. Abdominal exam reveals normal bowel sounds, no masses, no organomegaly and no aortic enlargement. Extremities are nonedematous and both femoral and pedal pulses are normal. Examination of the skin revealed no evidence of significant rashes, suspicious appearing nevi or other concerning lesions. Neurologically, the patient is awake and alert and the patient does have some left upper extremity weakness compared to the right and the motor function estimated to be 4 out of 5. Reflexes are equal and symmetrical bilaterally. Normal speech. Gait was not evaluated. Cranial nerves are essentially intact. Results - Laboratory Findings CBC and BMP: 01/07/25 11:04 01/07/25 11:04 PT/INR, D-dimer PT 10.6 sec (10.0-12.5) 01/07/25 13:13 INR 0.9 (<1.2) 01/07/25 13:13 Abnormal lab findings: Abnormal Labs 01/07/25 01/07/25 01/07/25 10:51 11:04 11:29 APTT BUN 36 H Creatinine 1.29 H Glucose 237 H POC Glucose (mg/dL) 234 H Creatine Kinase 201 H Urine Glucose (UA) 4+ H 01/07/25 01/07/25 13:13 15:42 APTT 21.8 L BUN Creatinine Glucose POC Glucose (mg/dL) 222 H Creatine Kinase Urine Glucose (UA) Assessment and Plan Plan: Acute CVA with left-sided weakness. The patient continues to have some residual weakness in the left upper extremity. No cranial nerve deficits. Hemodynamically stable and the patient has normal sinus rhythm. CTA of the brain was done and the findings were noted. The patient had diminished bilateral vertebral arteries with a nondominant right vertebral artery, likely on a congenital basis. Mild atherosclerosis of the carotid bifurcation, less than 50% proximal left ICA stenosis and there was also a soft tissue thickening in the supraglottic region with some asymmetry and effacement of the right pirif orm sinus and direct visualization by ENT was recommended. The small caliber of the vestibular system raise concerns for vertebrobasilar insufficiency. There was severe atherosclerotic change at the level of V3/V4 junction of the right vertebral artery with loss of enhancement of the distal V4 segment. There was also loss and enhancement at the mid basilar artery. The posterior circulation was preserved due to persistent origin of the bilateral cyberathlete. There was also retrograde flow to the distal basilar artery and this is suspected to be chronic rather than acute thrombosis. The patient is currently on a combination of aspirin and Brilinta. Blood pressure is stable Liver transplantation for an underlying hepatic carcinoma, maintained Rapamune Left lower lobe resection for metastatic lung disease Chronic left hemidiaphragmatic elevation/paralysis Hypertension Hyperlipidemia Hypothyroidism Chronic immunosuppression with Rapamune Plan Monitor hemodynamics Monitor blood pressure and avoid any hypotension. Current systolic blood pressure is above 140. 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
--- NOTE | 2025-01-07 16:03 | P.CONS ---
History of Present Illness - Reason for Consult Consult date: 01/07/25 - History of Present Illness Patient is a 89-[place]aw-rjc-year-old male with hyperlipidemia, CKD, hypertension, hypothyroidism, type 2 diabetes, history of liver cancer status post liver transplant 20 years ago (on sirolimus) with left lower lobe metastasis status post excision of left lower lobe and left diaphragm paralysis here for evaluation of left-sided weakness. Patient reported that yesterday evening around 1:30 PM he started to have left-sided weakness that was worsening throughout the night to the point that he was having difficulty ambulating. This morning around 7 AM patient noted that he could no longer ambulate on his own which led him to seek care around 9 AM today. He denied any associated symptoms. He denied chest pain, shortness of breath, facial asymmetry, changes in vision, headaches, changes in speech, palpitations, recent trauma or fall, recent travel. On admission: Temp 98.2 F, ID 73, RR 18, BP 149/96, O2 saturation 100% on room air. WBC 7.17, hemoglobin 13.8, sodium 139, potassium 4.1, bicarb 24, calcium 10, CK2 01, BUN 36, creatinine 1.29. Urinalysis showed +4 glucose, negative nitrites, negative leukocyte esterase. Chest x-ray showed left hemidiaphragm paralysis, with left basilar opacity, right upper chest thoracotomy noted with surgical clips, no acute process noted. CT angiography of the brain and neck showed less than 15% proximal left ICA stenosis, mild atherosclerotic change at the carotid bifurcations, small caliber to the vertebrobasilar system with severe atherosclerotic change of the V3 V4 junction of the right vertebral artery, loss of intensity of the mid basilar artery, no aneurysm or hemorrhage noted, Soft tissue thickening of supraglottic region. Brain CT showed patient similar moderate patchy burden of chronic small vessel ischemic disease with no acute intracranial abnormality. Review of systems: Pertinent positives and negatives as discussed in HPI, a complete review of systems was performed and all other systems are negative. Physical examination: Vital signs reviewed General: non toxic, no distress, appears at stated age, on room air Derm: no unusual rashes/lesions, warm Head: atraumatic, normocephalic, symmetric Eyes: EOMI, anicteric sclera, pupils equal round reactive to light ENT: Nose and ears atraumatic Neck: No cervical lymphadenopathy, trachea midline, supple Mouth: no lip lesion, mucus membranes moist Cardiovascular: S1S2 reg, no murmur Lungs: CTA bilateral, no rhonchi, no rales, no accessory muscle use Abdominal: soft, nondistended, nontender to palpation, no guarding Ext: muscle strength 4 out of 5 in upper and lower left extremities grossly, no gross muscle atrophy, no contractures, positive dorsalis pedis pulse bilateral, no edema Neuro: CN II-XI grossly intact, no gross focal neuro deficits Psych: Alert, oriented, appropriate affect and mood Assessment: #. Right-sided weakness due to ischemic stroke. Brain CT showed patient similar moderate patchy burden of chronic small vessel ischemic disease with no acute intracranial abnormality. CT angiography of the brain and neck showed small caliber to the vertebrobasilar system with severe atherosclerotic change of the V3 V4 junction of the right vertebral artery, loss of intensity of the mid basilar artery, no aneurysm or hemorrhage noted. #. Type 2 diabetes. On home insulin 35 units. #. Hyperlipidemia #. Hypertension #. CKD stage III #. Hypothyroidism #. History of liver cancer status post liver transplant. Currently taking sirolimus. #. History of Left lower lobe metastasis liver cancer status post excision of left lower lobe and left hemidiaphragm paralysis Plan: -Continue with Neurochecks -Continue with Cardiac telemetry -Echocardiogram -Brain MRI -Check Lipid profile and A1c -Glucose Accu-Cheks ACHS -Initiate Insulin sliding scale ACHS. Monitor for hypoglycemia -Aspirin 325 mg po once and Brilinta 180mg po once in the ED -On aspirin 81 mg daily and Brilinta 90 g p.o. 2 times daily by the ED -Consult neurology -Consult PT/OT -Consult SP Prognosis: guarded. Will require close monitoring in the ICU. Patient and family at bedside aware of plan and verbalized understanding Penny Garza MD PGY-1/Hydraulic Dredge Operator Internal Medicine Dictation was produced using [employer] dictation software. please excuse any grammatical, word or spelling errors. Past Medical History Past Medical History: Heart Failure, CVA/TIA, Hyperlipidemia, Hypertension, Liver Disease Additional Past Medical History / Comment(s): liver transplant 2004 History of Any Multi-Drug Resistant Organisms: None Reported Past Surgical History: Cholecystectomy Additional Past Surgical History / Comment(s): liver transplant, spinal fusion, bilat hip replacement, spinal fusion, left lower lung removal Past Anesthesia/Blood Transfusion Reactions: No Reported Reaction Additional Past Anesthesia/Blood Transfusion Reaction / Comm: No hx of blood tranfusion reactions Past Psychological History: No Psychological Hx Reported Smoking Status: Former smoker - Past Family History Mother Family Medical History: No Reported History Additional Family Medical History / Comment(s): No known family hx of CA or blood clots reported. Medications and Allergies Home Medications Medication Instructions Recorded Confirmed Type Ergocalciferol (Vitamin D2) 1,250 mcg PO SA 04/30/22 01/07/25 History [Drisdol (50,000 Iu)] Fenofibrate Nanocrystallized 145 mg PO DAILY 04/30/22 01/07/25 History [Fenofibrate] Fluticasone Nasal [place] [Flonase 1 spray EA NOSTRIL BID 04/30/22 01/07/25 History Nasal [place]] Insulin Glargine,Hum.rec.anlog 35 units SQ DAILY 04/30/22 01/07/25 History [Lantus Solostar Pen] Levothyroxine Sodium 112 mcg PO DAILY 04/30/22 01/07/25 History Losartan [Cozaar] 50 mg PO DAILY 04/30/22 01/07/25 History Rosuvastatin Calcium [Crestor] 5 mg PO DAILY 04/30/22 01/07/25 History Sirolimus [Rapamune] 0.5 mg PO DAILY 04/30/22 01/07/25 History amLODIPine [Norvasc] 5 mg PO BID 04/30/22 01/07/25 History carvediloL 12.5 mg PO BID-W/MEALS 04/30/22 01/07/25 History traZODone HCL [Desyrel] 100 mg PO HS 04/30/22 01/07/25 History Aspirin [Adult Low Dose Aspirin EC] 81 mg PO DAILY 10/16/24 01/07/25 History Cetirizine HCl 10 mg PO DAILY 10/19/24 01/07/25 History Empagliflozin [Jardiance] 25 mg PO DAILY 10/19/24 01/07/25 History Ketoconazole 2% Shampoo [Nizoral] 1 applic TOPICAL Q48H PRN 10/19/24 01/07/25 History Loperamide [Imodium] 2 mg PO Q8H PRN 10/19/24 01/07/25 History Nateglinide 120 mg PO TID 10/19/24 01/07/25 History Omeprazole 40 mg PO DAILY 10/19/24 01/07/25 History Semaglutide [Ozempic] 1 mg SQ TU 10/19/24 01/07/25 History Albuterol Sulfate [Albuterol 2 puff INHALATION RT-Q6H PRN 01/07/25 01/07/25 History Sulfate Hfa] [place]-3/Dha/Epa/Fish Oil [Fish Oil 2 cap PO DAILY 01/07/25 01/07/25 History 1,000 mg Softgel] Allergies Allergy/AdvReac Type Severity Reaction Status Date / Time adhesive Allergy Mild skin Verified 01/07/25 13:02 irritation Physical Exam Vitals: Vital Signs Temp Pulse Resp BP Pulse Ox 01/07/25 14:27 73 18 149/96 100 01/07/25 12:45 76 18 130/86 95 01/07/25 11:45 85 18 137/83 98 01/07/25 11:22 83 18 149/93 100 01/07/25 09:58 98.2 F 85 20 152/65 95 Intake and Output 01/06/25 01/07/25 01/07/25 22:59 06:59 14:59 Other: Weight 93.44 kg Results CBC & Chem 7: 01/07/25 11:04 01/07/25 11:04 Labs: Abnormal Lab Results - Last 24 Hours (Table) 01/07/25 01/07/25 01/07/25 Range/Units 10:51 11:04 11:29 APTT (22.0-30.0) sec BUN 36 H (9-20) mg/dL Creatinine 1.29 H (0.66-1.25) mg/dL Glucose 237 H (74-99) mg/dL POC Glucose (mg/dL) 234 H (70-110) mg/dL Creatine Kinase 201 H (55-170) U/L Urine Glucose (UA) 4+ H (Negative) 01/07/25 Range/Units 13:13 APTT 21.8 L (22.0-30.0) sec BUN (9-20) mg/dL Creatinine (0.66-1.25) mg/dL Glucose (74-99) mg/dL POC Glucose (mg/dL) (70-110) mg/dL Creatine Kinase (55-170) U/L Urine Glucose (UA) (Negative)
--- NOTE | 2025-01-07 16:30 | P.HPIM ---
History of Present Illness H&P Date: 01/07/25 69 year old M with PMH of liver CA and Hep C status post liver transplant of Sirolimus, HLD, HTN, GERD, Hypothyroid, DM presents to the ED for left sided weakness that started yesterday afternoon after he finishing mowing the lawn. Symptoms progressively worsened which prompted him to come to the ED today. He denies any slurred speech, confusion, vertigo, vision changes, difficulty swallowing, numbness/tingling of the extremities. He denies any headache, LE edema, N/V, fever or chills, cough, chest pain, shortness of breath, palpitations, changes in urination or bowel habits. No changes in appetite or weight. In the ED he underwent extensive evaluation. BP 152/65, HR 85, T 98.2F, RR 20, 95% on RA. CBC, Coag panel, CMP significant for APTT 21.8, BUN 36, Cr 1.29, glu 237. CPK 201. UA 4+ glucose. Brain CT moderate patchy burden of chronic small vessel disease. CXR post thoracotomy changes on the right, left hemidiaphragm paralysis, atelectasis of the left base. CTA head and neck shows < 15% left ICA stenosis, soft tissue thickening in the supraglottic region, severe atherosclerotic change of the V3/V4 junction right vertebral artery, loss of enhancement of the mid basilar artery. ED provider discussed the case with the neuro-interventionalist who recommended ICU monitoring for Q1 neurochecks. Patient is admitted for further workup and management. General: non toxic, no distress, appears at stated age Derm: warm, dry Head: atraumatic, normocephalic, symmetric Eyes: EOMI, no lid lag, anicteric sclera Mouth: no lip lesion, mucus membranes moist Cardiovascular: S1S2 reg, no murmur Lungs: Clear to auscultation bilaterally, no rhonchi, no rales , no accessory muscle use Ext: no gross muscle atrophy, no edema Neuro: CN II-XII grossly intact. Strength 4/5 in LLE, 5/5 in the RLE, bilateral UE. Sensation intact to touch in all 4 extremities. Psych: Alert and oriented. Based on my assessment of this patient, this patient meets a high complexity level of care. Left sided weakness concerning for CVA: Re-start ASA 81 mg PO QD. Start Brilinta 90 mg PO BID. Increase Lipitor to 40 mg PO QHS. Obtain MRI brain and Echo. Obtain A1c and Lipid profile. Telemetry monitoring and Q1H neurochecks. PT/OT/ST consult. Neurology consultation. Vertebral artery + Basilar artery stenosis: As seen on CTA head and neck. Management as above. Awaiting neurology recommendations. DM with hyperglycemia: Lantus 35 units QHS. ISS + Accuchecks ACHS along with hypoglycemic precautions. Thickening of the supraglottic region with asymmetric effacement of the right piriform sinus: Outpatient ENT eval. Hypertension: Permissive HTN for 24-48H. History of liver transplant: Restart Sirolimus 0.5 mg PO QD. Follows [facility] transplant team in [place]. Dyslipidemia: Lipitor as above. Fenofibrate 160 mg PO QD. GERD: Protonix 40 mg PO QD. Hypothyroidism: Synthroid 112 mcg PO QD. Chronic kidney disease stage III: At baseline. CODE STATUS: FULL CODE DVT Prophylaxis: Heparin SQ GI Prophylaxis: Protonix PO Designated medical POA if patient is not able to make medical decisions for themselves: I have reviewed the following public relations consultant notes: Pulmonary. I have reviewed the results of the following tests: As above. I have ordered the following tests: As above. I have discussed the care of this patient with the following independent historian: Family at bedside. I have independently interpreted the following test below: I have discussed the management of this patient with the following physician: Past Medical History Past Medical History: Heart Failure, CVA/TIA, Hyperlipidemia, Hypertension, Liver Disease Additional Past Medical History / Comment(s): liver transplant 2004 History of Any Multi-Drug Resistant Organisms: None Reported Past Surgical History: Cholecystectomy Additional Past Surgical History / Comment(s): liver transplant, spinal fusion, bilat hip replacement, spinal fusion, left lower lung removal Past Anesthesia/Blood Transfusion Reactions: No Reported Reaction Additional Past Anesthesia/Blood Transfusion Reaction / Comment(s): No hx of blood tranfusion reactions Past Psychological History: No Psychological Hx Reported Smoking Status: Former smoker - Past Family History Mother Family Medical History: No Reported History Additional Family Medical History / Comment(s): No known family hx of CA or blood clots reported. Medications and Allergies Home Medications Medication Instructions Recorded Confirmed Type Ergocalciferol (Vitamin D2) 1,250 mcg PO SA 04/30/22 01/07/25 History [Drisdol (50,000 Iu)] Fenofibrate Nanocrystallized 145 mg PO DAILY 04/30/22 01/07/25 History [Fenofibrate] Fluticasone Nasal [place] [Flonase 1 spray EA NOSTRIL BID 04/30/22 01/07/25 History Nasal [place]] Insulin Glargine,Hum.rec.anlog 35 units SQ DAILY 04/30/22 01/07/25 History [Lantus Solostar Pen] Levothyroxine Sodium 112 mcg PO DAILY 04/30/22 01/07/25 History Losartan [Cozaar] 50 mg PO DAILY 04/30/22 01/07/25 History Rosuvastatin Calcium [Crestor] 5 mg PO DAILY 04/30/22 01/07/25 History Sirolimus [Rapamune] 0.5 mg PO DAILY 04/30/22 01/07/25 History amLODIPine [Norvasc] 5 mg PO BID 04/30/22 01/07/25 History carvediloL 12.5 mg PO BID-W/MEALS 04/30/22 01/07/25 History traZODone HCL [Desyrel] 100 mg PO HS 04/30/22 01/07/25 History Aspirin [Adult Low Dose Aspirin EC] 81 mg PO DAILY 10/16/24 01/07/25 History Cetirizine HCl 10 mg PO DAILY 10/19/24 01/07/25 History Empagliflozin [Jardiance] 25 mg PO DAILY 10/19/24 01/07/25 History Ketoconazole 2% Shampoo [Nizoral] 1 applic TOPICAL Q48H PRN 10/19/24 01/07/25 History Loperamide [Imodium] 2 mg PO Q8H PRN 10/19/24 01/07/25 History Nateglinide 120 mg PO TID 10/19/24 01/07/25 History Omeprazole 40 mg PO DAILY 10/19/24 01/07/25 History Semaglutide [Ozempic] 1 mg SQ TU 10/19/24 01/07/25 History Albuterol Sulfate [Albuterol 2 puff INHALATION RT-Q6H PRN 01/07/25 01/07/25 History Sulfate Hfa] [place]-3/Dha/Epa/Fish Oil [Fish Oil 2 cap PO DAILY 01/07/25 01/07/25 History 1,000 mg Softgel] Allergies Allergy/AdvReac Type Severity Reaction Status Date / Time adhesive Allergy Mild skin Verified 01/07/25 13:02 irritation Physical Exam Vitals: Vital Signs Temp Pulse Resp BP Pulse Ox 01/07/25 14:27 73 18 149/96 100 01/07/25 12:45 76 18 130/86 95 01/07/25 11:45 85 18 137/83 98 01/07/25 11:22 83 18 149/93 100 01/07/25 09:58 98.2 F 85 20 152/65 95 Intake and Output 01/07/25 01/07/25 01/07/25 06:59 14:59 22:59 Other: Weight 93.44 kg Results CBC & Chem 7: 01/07/25 11:04 01/07/25 11:04 Labs: Abnormal Lab Results - Last 24 Hours (Table) 01/07/25 01/07/25 01/07/25 Range/Units 10:51 11:04 11:29 APTT (22.0-30.0) sec BUN 36 H (9-20) mg/dL Creatinine 1.29 H (0.66-1.25) mg/dL Glucose 237 H (74-99) mg/dL POC Glucose (mg/dL) 234 H (70-110) mg/dL Creatine Kinase 201 H (55-170) U/L Urine Glucose (UA) 4+ H (Negative) 01/07/25 01/07/25 Range/Units 13:13 15:42 APTT 21.8 L (22.0-30.0) sec BUN (9-20) mg/dL Creatinine (0.66-1.25) mg/dL Glucose (74-99) mg/dL POC Glucose (mg/dL) 222 H (70-110) mg/dL Creatine Kinase (55-170) U/L Urine Glucose (UA) (Negative)
[2025-01-07] MEDS: INSULIN LISPRO (HumaLOG) 100 UNIT/ML 10 mL VL SQ SCH (17:49)
[2025-01-07 20:56] LABS: Glucose,Whole Blood 199 mg/dL (70-110)
[2025-01-07] MEDS: traZODone HCL 100 MG TAB PO SCH (20:58)
[2025-01-07] MEDS: INSULIN GLARGINE (LANTUS) 100 UNIT/ML SYR SQ SCH (20:58)
[2025-01-07] MEDS: TICAGRELOR 90 MG TAB PO SCH (20:58)
[2025-01-07] MEDS ORDERED: amLODIPine 5 MG TAB PO SCH (21:00)
[2025-01-07] MEDS: HEPARIN SODIUM,PORCINE 5,000 UNIT/ML 1 ML VIAL SQ SCH (23:04)
[2025-01-08] MEDS: LEVOTHYROXINE 112 MCG TAB PO SCH (06:22)
[2025-01-08] MEDS: PANTOPRAZOLE 40 MG TABLET PO SCH (06:23)
[2025-01-08 06:28] LABS: Glucose,Whole Blood 128 mg/dL (70-110)
[2025-01-08] MEDS: ATORVASTATIN 40 MG TAB PO SCH (08:52)
[2025-01-08] MEDS: LORATADINE 10 MG TAB PO SCH (08:53)
[2025-01-08] MEDS: FENOFIBRATE 160 MG TAB PO SCH (08:53)
--- NOTE | 2025-01-08 08:54 | P.CNNES ---
History of Present Illness Consult date: 01/07/25 Requesting physician: Tera De Luna Reason for Consult: CVA History of Present Illness: Patient is a 69-year-old right-handed male with significant past medical history, came to the hospital this morning at 9:53 AM, because of intermittent weakness of the left side of the body. Patient states that his symptoms started at 1 PM yesterday, when he was not feeling good. He was sitting outside. At around 7 PM he got up to go to the bathroom, and felt sluggish. He came back, started watching TV. At around 9 PM, he got up and when he was standing, felt different. His left hand felt weaker, left leg was weak, and he was leaning to the left. He went to sleep at 10 PM. This morning he woke up at 5:30 to 6 AM a nd getting out of bed was more difficult as compared to the last night. His had to help him. He has to hang onto the fernández. His brought the walker, that has been laying in the garage. He felt better walking with a walker. His helped on the left side and he braced himself to the right side. Because of these symptoms, he came to the hospital. Patient denies any slurred speech, facial droop, problem with the vision, numbness or tingling. Vital signs on arrival blood pressure 152/65, pulse rate 85 temperature 98.2. Blood test shows normal CBC, PT/PTT, electrolytes are normal, BUN 36 creatinine 1.29. Hepatic panel is normal. UA is negative. Hemoglobin A1c 7.8. CT head showed similar moderate patchy burden of chronic small vessel ischemic disease. No acute intracranial abnormality seen. I personally reviewed CT head, agree with the findings. Chest x-ray showed postthoracotomy changes on the right. Ongoing findings of left hemidiaphragmatic paralysis. Strandy scarring/atelectasis at the left base. No acute changes identified. EKG showed sinus rhythm with left axis deviation. Patient has history of hepatitis C, head diagnosis of liver cancer in April 2006 underwent liver transplant in January 2005. 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 He also had undergone left lower lobe lobectomy in 2007. Since 2009 he has been cancer free. His hepatitis was cured in 2014. He has chronic diaphragmatic paralysis. Patient has smoked half pack per day for 15 years, quit in 1992. Patient does take aspirin 81 mg daily and is compliant. Also on Crestor 5 mg.. Review of Systems All pertinent positive and negative review of systems patient HPI, otherwise unremarkable. Past Medical History Past Medical History: Heart Failure, CVA/TIA, Hyperlipidemia, Hypertension, Liver Disease Additional Past Medical History / Comment(s): liver transplant 2004 History of Any Multi-Drug Resistant Organisms: None Reported Past Surgical History: Cholecystectomy Additional Past Surgical History / Comment(s): liver transplant, spinal fusion, bilat hip replacement, spinal fusion, left lower lung removal Past Anesthesia/Blood Transfusion Reactions: No Reported Reaction Additional Past Anesthesia/Blood Transfusion Reaction / Comment(s): No hx of blood tranfusion reactions Past Psychological History: No Psychological Hx Reported Smoking Status: Former smoker - Past Family History Mother Family Medical History: No Reported History Additional Family Medical History / Comment(s): No known family hx of CA or blood clots reported. Medications and Allergies Home Medications Medication Instructions Recorded Confirmed Type Ergocalciferol (Vitamin D2) 1,250 mcg PO SA 04/30/22 01/07/25 History [Drisdol (50,000 Iu)] Fenofibrate Nanocrystallized 145 mg PO DAILY 04/30/22 01/07/25 History [Fenofibrate] Fluticasone Nasal [place] [Flonase 1 spray EA NOSTRIL BID 04/30/22 01/07/25 History Nasal [place]] Insulin Glargine,Hum.rec.anlog 35 units SQ DAILY 04/30/22 01/07/25 History [Lantus Solostar Pen] Levothyroxine Sodium 112 mcg PO DAILY 04/30/22 01/07/25 History Losartan [Cozaar] 50 mg PO DAILY 04/30/22 01/07/25 History Rosuvastatin Calcium [Crestor] 5 mg PO DAILY 04/30/22 01/07/25 History Sirolimus [Rapamune] 0.5 mg PO DAILY 04/30/22 01/07/25 History amLODIPine [Norvasc] 5 mg PO BID 04/30/22 01/07/25 History carvediloL 12.5 mg PO BID-W/MEALS 04/30/22 01/07/25 History traZODone HCL [Desyrel] 100 mg PO HS 04/30/22 01/07/25 History Aspirin [Adult Low Dose Aspirin EC] 81 mg PO DAILY 10/16/24 01/07/25 History Cetirizine HCl 10 mg PO DAILY 10/19/24 01/07/25 History Empagliflozin [Jardiance] 25 mg PO DAILY 10/19/24 01/07/25 History Ketoconazole 2% Shampoo [Nizoral] 1 applic TOPICAL Q48H PRN 10/19/24 01/07/25 History Loperamide [Imodium] 2 mg PO Q8H PRN 10/19/24 01/07/25 History Nateglinide 120 mg PO TID 10/19/24 01/07/25 History Omeprazole 40 mg PO DAILY 10/19/24 01/07/25 History Semaglutide [Ozempic] 1 mg SQ TU 10/19/24 01/07/25 History Albuterol Sulfate [Albuterol 2 puff INHALATION RT-Q6H PRN 01/07/25 01/07/25 History Sulfate Hfa] [place]-3/Dha/Epa/Fish Oil [Fish Oil 2 cap PO DAILY 01/07/25 01/07/25 History 1,000 mg Softgel] Allergies Allergy/AdvReac Type Severity Reaction Status Date / Time adhesive Allergy Mild skin Verified 01/07/25 13:02 irritation Physical Examination - Vital Signs Vital Signs: Vital Signs Temp Pulse Resp BP Pulse Ox 01/08/25 07:00 78 15 152/89 95 01/08/25 06:30 80 23 135/82 92 L 01/08/25 06:00 70 17 129/80 93 L 01/08/25 05:30 75 14 132/81 88 L 01/08/25 05:00 68 15 127/85 92 L 01/08/25 04:30 68 15 144/90 93 L 01/08/25 04:00 98.3 F 68 19 143/82 94 L 01/08/25 03:30 66 19 138/91 93 L 01/08/25 03:00 70 16 143/83 92 L 01/08/25 02:30 65 10 L 144/88 94 L 01/08/25 02:00 68 25 H 141/90 95 01/08/25 01:30 68 20 147/88 94 L 01/08/25 01:00 71 23 150/87 93 L 01/08/25 00:30 13 144/89 93 L 01/08/25 00:05 16 144/89 95 01/08/25 00:00 98.0 F 73 19 135/87 93 L 01/07/25 23:30 74 18 176/98 94 L 01/07/25 23:00 72 17 145/79 93 L 01/07/25 22:30 75 20 144/91 94 L 01/07/25 22:00 90 17 142/88 94 L 01/07/25 21:30 16 161/101 96 01/07/25 21:00 85 18 136/114 94 L 01/07/25 20:30 77 18 157/94 98 01/07/25 20:00 98.1 F 77 22 128/83 96 01/07/25 19:30 76 13 142/84 93 L 01/07/25 19:00 22 137/82 94 L 01/07/25 18:30 17 131/90 94 L 01/07/25 18:00 28 H 153/98 95 01/07/25 17:30 87 20 159/109 93 L 01/07/25 17:00 25 H 143/95 94 L 01/07/25 16:30 76 12 138/85 95 01/07/25 16:00 98 F 74 24 140/97 94 L 01/07/25 14:27 73 18 149/96 100 01/07/25 12:45 76 18 130/86 95 01/07/25 11:45 85 18 137/83 98 01/07/25 11:22 83 18 149/93 100 01/07/25 09:58 98.2 F 85 20 152/65 95 Intake and Output 01/07/25 01/08/25 01/08/25 22:59 06:59 14:59 Intake Total 1140 Output Total 375 350 0 Balance 765 -350 0 Intake: Oral 1140 Output: Urine 375 350 0 Other: Voiding Method Urinal Urinal # Voids 1 Weight 92.7 kg Patient is an elderly male, very pleasant, in no acute distress. Patient is alert awake oriented to time place and person. Speech and language functions are normal. Patient can name and repeat very well. No aphasia or dysarthria. Attention, concentration and fund of knowledge is adequate. On cranial nerve examination, pupils are equal, round and reacting to light, visual trujillo are full on confrontation, with no neglect on double simultaneous stimulation. Extraocular muscles are intact with no nystagmus. Face is symmetric, tongue protrudes to the midline. Palatal elevation and sensation normal, hearing and shoulder shrug normal, facial sensation normal. On muscle strength testing, patient has chronic weakness of the left shoulder since 2006. The muscle strength is (right/left) biceps 5/5-, triceps 5/5, account clerk 5/5-, hip flexion 5/5, ankle dorsiflexion 5/5. Deep tendon reflexes are symmetric , diminished and plantars downgoing. Sensory to touch is equal with no neglect on double simultaneous stimulation. Cerebellar function showed ataxia for [id number] testing of the left upper extremity, but not the right upper extremity. There is very mild ataxia for [id number] testing only on the left side. Tone and bulk of muscles normal. Gait deferred.. On general examination, there is no carotid bruit or murmur, S1-S2 audible. Chest is clear on consultation. Abdomen is soft nontender. No organomegaly, bowel sounds present. Peripheral pulses are present. No peripheral edema. Results - Laboratory Findings CBC and BMP: 01/07/25 11:04 01/07/25 11:04 Abnormal Lab Findings: Abnormal Labs 01/07/25 01/07/25 01/07/25 10:51 11:04 11:04 APTT BUN 36 H Creatinine 1.29 H Glucose 237 H POC Glucose (mg/dL) 234 H Hemoglobin A1c 7.8 H Creatine Kinase 201 H Urine Glucose (UA) 01/07/25 01/07/25 01/07/25 11:29 13:13 15:42 APTT 21.8 L BUN Creatinine Glucose POC Glucose (mg/dL) 222 H Hemoglobin A1c Creatine Kinase Urine Glucose (UA) 4+ H 01/07/25 01/08/25 20:55 06:26 APTT BUN Creatinine Glucose POC Glucose (mg/dL) 199 H 128 H Hemoglobin A1c Creatine Kinase Urine Glucose (UA) Assessment and Plan Assessment: * Possible stroke/TIA, manifesting with left-sided weakness. 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 Small caliber to the vertebral basilar system. Very any chronic symptoms of vertebrobasilar insufficiency. Severe atherosclerotic change of the V3 V4 junction right vertebral artery with loss of enhancement of the distal V4 segment. There is also loss of enhancement at the mid basilar artery. Posterior circulation is preserved due to persistent origin of bilateral TRAVEL TICKETING REVIEWER. This also provides retrograde flow to the distal basilar artery. Suspect these to be more chronic findings, rather than acute thrombosis. Patent ICAs and anterior circulation. No aneurysm. * ED staff discussed case with neuro intervention Dr. Arias, who believes these are chronic findings however required admission to ICU for every hourly neuro checks as well as initiating aspirin and Brilinta. * Fasting a.m. lipid panel * Hemoglobin A1c 7.8. Recommend optimize control of diabetes to target A1c < 7.0. * Permissive hypertension for next 24-48 hours * Patient was on aspirin 81 mg daily. Brilinta 180 mg loading dose was given by the ED and now on 90 mg twice a day. * Neuro checks as per protocol. * Telemetry monitoring rule out any arrhythmia * PT, OT, speech therapy * DVT prophylaxis: Heparin 5000 units subcu every 8 hours * Neurology will continue to follow. Thank you for the consult. Time with Patient: Greater than 30
[2025-01-08] MEDS ORDERED: SIROLIMUS PO SCH (09:00)
[2025-01-08] MEDS ORDERED: ATORVASTATIN 10 MG TAB PO SCH (09:00)
[2025-01-08 09:51] LABS: Chol/HDL Ratio 5.68 Ratio; HDL Cholesterol 32.2 mg/dL (40.00-60.00); VLDL Calculation 125.8 mg/dL (5.00-40.00)
[2025-01-08 10:18] LABS: LDL Cholesterol,Direct Reflex 78.7 mg/dL (0.00-129.00)
--- NOTE | 2025-01-08 11:57 | P.PN ---
Subjective Progress Note Date: 01/08/25 69 year old M with PMH of liver CA and Hep C status post liver transplant of Sirolimus, HLD, HTN, GERD, Hypothyroid, DM presents to the ED for left sided weakness that started yesterday afternoon after he finishing mowing the lawn. Symptoms progressively worsened which prompted him to come to the ED today. He denies any slurred speech, confusion, vertigo, vision changes, difficulty swallowing, numbness/tingling of the extremities. He denies any headache, LE edema, N/V, fever or chills, cough, chest pain, shortness of breath, palpitations, changes in urination or bowel habits. No changes in appetite or weight. In the ED he underwent extensive evaluation. BP 152/65, HR 85, T 98.2F, RR 20, 95% on RA. CBC, Coag panel, CMP significant for APTT 21.8, BUN 36, Cr 1.29, glu 237. CPK 201. UA 4+ glucose. Brain CT moderate patchy burden of chronic small vessel disease. CXR post thoracotomy changes on the right, left hemidiaphragm paralysis, atelectasis of the left base. CTA head and neck shows < 15% left ICA stenosis, soft tissue thickening in the supraglottic region, severe atherosclerotic change of the V3/V4 junction right vertebral artery, loss of enhancement of the mid basilar artery. ED provider discussed the case with the neuro-interventionalist who recommended ICU monitoring for Q1 neurochecks. Patient is admitted for further workup and management. 01/08 Patient was seen and examined. Weakness persistent. A1c 7.8. Lipid panel T. Chol 183, TG 629, LDL 78.7, HDL 32.2. Neurology recommends MRI brain, Echo, MRA head and neck. General: non toxic, no distress, appears at stated age Derm: warm, dry Head: atraumatic, normocephalic, symmetric Eyes: EOMI, no lid lag, anicteric sclera Mouth: no lip lesion, mucus membranes moist Cardiovascular: S1S2 reg, no murmur Lungs: Clear to auscultation bilaterally, no rhonchi, no rales , no accessory muscle use Ext: no gross muscle atrophy, no edema Neuro: CN II-XII grossly intact. Strength 4/5 in LLE, 5/5 in the RLE, bilateral UE. Sensation intact to touch in all 4 extremities. Psych: Alert and oriented. Based on my assessment of this patient, this patient meets a high complexity level of care. Left sided weakness concerning for CVA: ASA 81 mg PO QD. Brilinta 90 mg PO BID. Lipitor 40 mg PO QHS. Obtain MRI brain, MRA head and neck and Echo. A1c and Lipid profile as above. Telemetry monitoring and Q1H neurochecks. PT/OT/ST consult. Neurology on board. Vertebral artery + Basilar artery stenosis: As seen on CTA head and neck. Management as above. MRA head and neck pending. Awaiting neurology recommendations. DM with hyperglycemia: Lantus 35 units QHS. ISS + Accuchecks ACHS along with hypoglycemic precautions. Thickening of the supraglottic region with asymmetric effacement of the right piriform sinus: Outpatient ENT eval. Hypertension: Permissive HTN for 24-48H. History of liver transplant: Restart Sirolimus 0.5 mg PO QD. Follows [facility] transplant team in [place]. Dyslipidemia: Lipitor as above. Fenofibrate 160 mg PO QD. GERD: Protonix 40 mg PO QD. Hypothyroidism: Synthroid 112 mcg PO QD. Chronic kidney disease stage III: At baseline. CODE STATUS: FULL CODE DVT Prophylaxis: Heparin SQ GI Prophylaxis: Protonix PO Designated medical POA if patient is not able to make medical decisions for themselves: I have reviewed the following campaign consultant notes: Neurology. I have reviewed the results of the following tests: A1c. Lipid panel. I have ordered the following tests: MRI brain, MRA head and neck, Echo pending. I have discussed the care of this patient with the following independent historian: I have independently interpreted the following test below: I have discussed the management of this patient with the following physician: Objective - Vital Signs Vital signs: Vital Signs Temp 98.3 F 01/08/25 04:00 Pulse 75 01/08/25 10:00 Resp 14 01/08/25 09:30 BP 146/91 01/08/25 10:00 Pulse Ox 94 L 01/08/25 10:00 FiO2 Intake & Output 01/07/25 01/08/25 01/08/25 18:59 06:59 18:59 Intake Total 600 540 Output Total 375 350 300 Balance 225 190 -300 Weight 93.44 kg 92.7 kg Intake: Oral 600 540 Output: Urine 375 350 300 Other: Voiding Method Urinal Urinal Urinal # Voids 1 0 - Labs CBC & Chem 7: 01/07/25 11:04 01/07/25 11:04 Labs: Abnormal Lab Results - Last 24 Hours (Table) 01/07/25 01/07/25 01/07/25 Range/Units 11:04 11:04 11:29 APTT (22.0-30.0) sec POC Glucose (mg/dL) (70-110) mg/dL Hemoglobin A1c 7.8 H (<=6.0) % Triglycerides 629.00 H (0.00-149.00) mg/dL VLDL Cholesterol, Calc 125.80 H (5.00-40.00) mg/dL HDL Cholesterol 32.20 L (40.00-60.00) mg/dL Urine Glucose (UA) 4+ H (Negative) 01/07/25 01/07/25 01/07/25 Range/Units 13:13 15:42 20:55 APTT 21.8 L (22.0-30.0) sec POC Glucose (mg/dL) 222 H 199 H (70-110) mg/dL Hemoglobin A1c (<=6.0) % Triglycerides (0.00-149.00) mg/dL VLDL Cholesterol, Calc (5.00-40.00) mg/dL HDL Cholesterol (40.00-60.00) mg/dL Urine Glucose (UA) (Negative) 01/08/25 Range/Units 06:26 APTT (22.0-30.0) sec POC Glucose (mg/dL) 128 H (70-110) mg/dL Hemoglobin A1c (<=6.0) % Triglycerides (0.00-149.00) mg/dL VLDL Cholesterol, Calc (5.00-40.00) mg/dL HDL Cholesterol (40.00-60.00) mg/dL Urine Glucose (UA) (Negative)
[2025-01-08 11:59] LABS: Glucose,Whole Blood 411 mg/dL (70-110)
[2025-01-08 12:11] LABS: Glucose,Whole Blood 228 mg/dL (70-110)
[2025-01-08 14:42] LABS: Glucose,Whole Blood 258 mg/dL (70-110)
[2025-01-08] MEDS: SIROLIMUS PO SCH (14:54)
--- NOTE | 2025-01-08 15:16 | P.PN ---
Subjective Progress Note Date: 01/08/25 This is a 69-year-old male patient who presented to the emergency department with left-sided weakness. A code stroke was activated. The patient was given initial CAT scan of the brain and the CAT scan showed moderate patchy burden of chronic's small vessel ischemic disease without any acute process. 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 Mild atherosclerosis of the carotid bifurcation, less than 50% proximal left ICA stenosis and there was also a soft tissue thickening in the supraglottic region with some asymmetry and effacement of the right piriform sinus and direct visualization by ENT was recommended. The small caliber of the vestibular system raise concerns for vertebrobasilar insufficiency. There was severe atherosclerotic change at the level of V3/V4 junction of the right vertebral artery with loss of enhancement of the distal V4 segment. There was also loss and enhancement at the mid basilar artery. The posterior circulation was preserved due to persistent origin of the bilateral agronomy specialist. There was also retrograde flow to the distal basilar artery and this is suspected to be chronic rather than acute thrombosis. Neuro interventionalists was consulted and the patient was not given thrombolytics. He was recommended for this patient to come to the ICU for hourly neurochecks. Cardiac rhythm is sinus. Hemodynamically stable. No significant hyper or hypotension. The CBC is within normal limits. Coagulation profile is within normal limits. BUN 36 with a creatinine of 1.20 patient is chronic stage III kidney disease and the current GFR is 57. Electrolytes all within normal limits. LFTs are normal. The patient has undergone previous liver transplantation for liver cancer. This was a complication of previous hepatitis C infection. Is also undergone a left lower lobe resection where metastasis was present in the left lung. He does h ave chronic left hemidiaphragmatic paralysis post surgery and the left hemidiaphragm remains quite elevated. Other comorbidities include hypothyroidism, diabetes and hyperlipidemia and hypertension. He is maintained on Rapamune on a chronic basis. On 01/08/2025, the patient sitting up on a chair. He attempted to ambulate and he was found to be a bit ataxic and out of balance with some left-sided weakness from patient was able to move around with the help of a walker under supervision. He is still complaining of some weakness in left upper extremity. MRI of the brain was ordered. Remains on aspirin. Remains on Brilinta. Rest of the medication remain unchanged. Patient on Lipitor 40 mg p.o. daily. Blood pressure is stable. He is on Lantus insulin 35 units at bedtime. Neurology on the case. No new blood work from today. He is on room air oxygen. He is hemodynamically stable. Cardiac rhythm remains sinus. Objective - Vital Signs Vital signs: Vital Signs Temp 98.3 F 01/08/25 04:00 Pulse 80 01/08/25 08:30 Resp 22 01/08/25 09:00 BP 149/92 01/08/25 09:00 Pulse Ox 95 01/08/25 09:00 FiO2 Intake & Output 01/07/25 01/08/25 01/08/25 18:59 06:59 18:59 Intake Total 600 540 Output Total 375 350 300 Balance 225 190 -300 Weight 93.44 kg 92.7 kg Intake: Oral 600 540 Output: Urine 375 350 300 Other: Voiding Method Urinal Urinal # Voids 1 0 - Exam The patient appeared well nourished and normally developed. Vital signs as documented. Head exam is unremarkable. No scleral icterus or corneal arcus noted. Neck is without jugular venous distension, thyromegaly, or carotid bruits. Carotid upstrokes are brisk bilaterally. Lungs are clear to auscultation and percussion. Cardiac exam reveals the PMI to be normally sized and situated. Rhythm is regular. First and second heart sounds normal. No murmurs, rubs or gallops. Abdominal exam reveals normal bowel sounds, no masses, no organomegaly and no aortic enlargement. Extremities are nonedematous and both femoral and pedal pulses are normal. Examination of the skin revealed no evidence of significant rashes, suspicious appearing nevi or other concerning lesions. Neurologically, the patient is awake and alert and the patient does have some left upper extremity weakness compared to the right and the motor function estimated to be 4 out of 5. Reflexes are equal and symmetrical bilaterally. Normal speech. Gait was not evaluated. Cranial nerves are essentially intact. - Labs CBC & Chem 7: 01/07/25 11:04 01/07/25 11:04 Labs: Abnormal Lab Results - Last 24 Hours (Table) 01/07/25 01/07/25 01/07/25 Range/Units 10:51 11:04 11:04 APTT (22.0-30.0) sec BUN 36 H (9-20) mg/dL Creatinine 1.29 H (0.66-1.25) mg/dL Glucose 237 H (74-99) mg/dL POC Glucose (mg/dL) 234 H (70-110) mg/dL Hemoglobin A1c 7.8 H (<=6.0) % Creatine Kinase 201 H (55-170) U/L Urine Glucose (UA) (Negative) 01/07/25 01/07/25 01/07/25 Range/Units 11:29 13:13 15:42 APTT 21.8 L (22.0-30.0) sec BUN (9-20) mg/dL Creatinine (0.66-1.25) mg/dL Glucose (74-99) mg/dL POC Glucose (mg/dL) 222 H (70-110) mg/dL Hemoglobin A1c (<=6.0) % Creatine Kinase (55-170) U/L Urine Glucose (UA) 4+ H (Negative) 01/07/25 01/08/25 Range/Units 20:55 06:26 APTT (22.0-30.0) sec BUN (9-20) mg/dL Creatinine (0.66-1.25) mg/dL Glucose (74-99) mg/dL POC Glucose (mg/dL) 199 H 128 H (70-110) mg/dL Hemoglobin A1c (<=6.0) % Creatine Kinase (55-170) U/L Urine Glucose (UA) (Negative) Assessment and Plan Plan: Acute CVA with left-sided weakness. The patient continues to have some residual weakness in the left upper extremity. No cranial nerve deficits. Hemodynamically stable and the patient has normal sinus rhythm. CTA of the brain was done and the findings were noted. The patient had diminished bilateral vertebral arteries with a nondominant right vertebral artery, likely on a congenital basis. Mild atherosclerosis of the carotid bifurcation, less than 50% proximal left ICA stenosis and there was also a soft tissue thickening in the supraglottic region with some asymmetry and effacement of the right piriform sinus and direct visualization by ENT was recommended. The small c aliber of the vestibular system raise concerns for vertebrobasilar insufficiency. There was severe atherosclerotic change at the level of V3/V4 junction of the right vertebral artery with loss of enhancement of the distal V4 segment. There was also loss and enhancement at the mid basilar artery. The posterior circulation was preserved due to persistent origin of the bilateral agronomy specialist. There was also retrograde flow to the distal basilar artery and this is suspected to be chronic rather than acute thrombosis. The patient is currently on a combination of aspirin and Brilinta. Blood pressure is stable. Over the past 24 hours, the patient has remained stable with ongoing left-sided weakness and difficulty with mobility and gait. MRI of the brain is to follow. Liver transplantation for an underlying hepatic carcinoma, maintained Rapamune Left lower lobe resection for metastatic lung disease Chronic left hemidiaphragmatic elevation/paralysis Hypertension Hyperlipidemia Hypothyroidism Chronic immunosuppression with Rapamune Plan Monitor hemodynamics Monitor blood pressure and avoid any hypotension. Current systolic blood pressure is above 140. Hold antihypertensive medications for now, the blood pressure remains stable Continue aspirin and Brilinta Neurology consultation MRI of the brain is to follow monitoring manager, rhythm is sinus Neurochecks on every 4-6 hours Continue Lipitor Continue Lantus insulin 35 units daily and NovoLog/scale coverage Continue Synthroid Continue Rapamune Echocardiogram is pending Currently on room air oxygen Will continue to follow
--- NOTE | 2025-01-08 16:27 | CA ---
Transthoracic Echo Report Name: Dominic Durán Age: 69 Gender: M : 1955 Exam Date: 01/08/2025 07:57 Exam Location: [place] [facility] Ht (in): 70 Wt (lb): 206 Ordering Physician: Penny Garza MD Attending/Referring Phys: Laborer Driver Page Delgado RDCS Procedure CPT: Indications: tia Cardiac Hx: Technical Quality: Fair Contrast 1: Agitated Saline Total Dose (mL): 10 Contrast 2: Total Dose (mL): MEASUREMENTS (Male / Female) Normal Values 2D ECHO LV Diastolic Diameter PLAX 4.3 cm 4.2 - 5.9 / 3.9 - 5.3 cm LV Systolic Diameter PLAX 3.3 cm IVS Diastolic Thickness 1.0 cm 0.6 - 1.0 / 0.6 - 0.9 cm LVPW Diastolic Thickness 1.0 cm 0.6 - 1.0 / 0.6 - 0.9 cm LV Relative Wall Thickness 0.5 RV Internal Dim ED PLAX 1.8 cm LA Systolic Diameter LX 3.8 cm 3.0 - 4.0 / 2.7 - 3.8 cm LV Diastolic Volume MOD BP 115.7 cm??? 67 - 155 / 56 - 104 cm??? LV Systolic Volume MOD BP 58.6 cm??? 22 - 58 / 19 - 49 cm??? LV Ejection Fraction MOD BP 49.4 % >= 55 % LV Cardiac Index MOD BP 2550.7 cm???/min???m??? LV Diastolic Volume MOD 4C 118.3 cm??? LV Systolic Volume MOD 4C 66.9 cm??? LV Ejection Fraction MOD 4C 43.5 % LV Cardiac Index MOD 4C 2300.0 cm???/min???m??? LV Diastolic Length 4C 7.4 cm LV Systolic Length 4C 6.6 cm LV Diastolic Volume MOD 2C 109.3 cm??? LV Systolic Volume MOD 2C 50.2 cm??? LV Ejection Fraction MOD 2C 54.0 % LV Cardiac Index MOD 2C 2637.8 cm???/min???m??? LV Diastolic Length 2C 7.7 cm LV Systolic Length 2C 6.4 cm LA Volume 55.4 cm??? 18 - 58 / 22 - 52 cm??? LA Volume Index 25.5 cm???/m??? 16 - 28 cm???/m??? M-MODE Aortic Root Diameter MM 3.3 cm LA Systolic Diameter MM 4.1 cm LA Ao Ratio MM 1.2 AV Cusp Separation MM 1.8 cm DOPPLER AI Peak Velocity 340.1 cm/s AI Peak Gradient 46.3 mmHg AI Pressure Half Time 891.1 ms MV Area PHT 3.1 cm??? Mitral E Point Velocity 98.8 cm/s Mitral A Point Velocity 125.2 cm/s Mitral E to A Ratio 0.8 MV Deceleration Time 244.0 ms TR Peak Velocity 205.2 cm/s TR Peak Gradient 16.8 mmHg FINDINGS Left Ventricle Left ventricular ejection fraction is estimated at 45 %. Mildly decreased left ventricular ejection fraction. Left ventricular cavity size normal. Mild concentric left ventricular hypertrophy. There is hypokinesia involving the inferobasal and inferoseptal left ventricle and mild global decrease in contractility as well ejection fraction is in the 45% range Right Ventricle Normal right ventricular size and function. Right ventricular systolic pressure within normal limits. Right Atrium Mild right atrial dilatation. Negative agitated saline bubble study for right to left shunt. Left Atrium Mild left atrial dilatation. Mitral Valve Mitral valve thickened. Mild mitral regurgitation. No mitral stenosis. Mitral annular calcification. Aortic Valve Trileaflet aortic valve. No aortic stenosis. Mild aortic regurgitation. Tricuspid Valve Structurally normal tricuspid valve. No tricuspid stenosis. Mild tricuspid regurgitation. Pulmonic Valve Structurally normal pulmonic valve. No pulmonic stenosis. Trace pulmonic regurgitation. Pericardium No pericardial or pleural effusion. Aorta Normal size aortic root and proximal ascending aorta. CONCLUSIONS Left ventricle size is at upper limits of normal there is hypokinesia of the inferoseptal and inferobasal wall with ejection fraction in the 45% range. Mild mitral and tricuspid regurgitation no pericardial effusion. Right-sided pressures are within normal limits. Bubble study is negative for [id number] shunt Previewed by: Dr. Maynor Go MD (Electronically Signed) Final Date: 08 Jan 2025 16:26
[2025-01-08 17:04] LABS: Glucose,Whole Blood 194 mg/dL (70-110)
--- NOTE | 2025-01-08 19:04 | P.PN ---
Subjective Progress Note Date: 01/08/25 Patient was seen for a follow-up. Patient is sitting comfortably in the recliner. Offers no new complaints. Objective - Vital Signs Vital signs: Vital Signs Temp 97.4 F L 01/08/25 14:00 Pulse 90 01/08/25 14:00 Resp 13 01/08/25 14:00 BP 140/89 01/08/25 14:00 Pulse Ox 96 01/08/25 14:00 FiO2 Intake & Output 01/07/25 01/08/25 01/08/25 18:59 06:59 18:59 Intake Total 600 540 Output Total 375 350 300 Balance 225 190 -300 Weight 93.44 kg 92.7 kg Intake: Oral 600 540 Output: Urine 375 350 300 Other: Voiding Method Urinal Urinal Urinal # Voids 1 0 - Exam Mental status, speech and language functions normal. Cranial nerves normal. On muscle strength testing, (right/left) biceps 5/5-, triceps 5/5, deltoid 4+/1- 2 (old shoulder issues), hip flexion 5/5-, ankle dorsiflexion 5/5. - Labs CBC & Chem 7: 01/07/25 11:04 01/07/25 11:04 Labs: Abnormal Lab Results - Last 24 Hours (Table) 01/07/25 01/07/25 01/07/25 Range/Units 11:04 11:04 15:42 POC Glucose (mg/dL) 222 H (70-110) mg/dL Hemoglobin A1c 7.8 H (<=6.0) % Triglycerides 629.00 H (0.00-149.00) mg/dL VLDL Cholesterol, Calc 125.80 H (5.00-40.00) mg/dL HDL Cholesterol 32.20 L (40.00-60.00) mg/dL 01/07/25 01/08/25 01/08/25 Range/Units 20:55 06:26 11:57 POC Glucose (mg/dL) 199 H 128 H 411 H (70-110) mg/dL Hemoglobin A1c (<=6.0) % Triglycerides (0.00-149.00) mg/dL VLDL Cholesterol, Calc (5.00-40.00) mg/dL HDL Cholesterol (40.00-60.00) mg/dL 01/08/25 01/08/25 Range/Units 12:09 14:38 POC Glucose (mg/dL) 228 H 258 H (70-110) mg/dL Hemoglobin A1c (<=6.0) % Triglycerides (0.00-149.00) mg/dL VLDL Cholesterol, Calc (5.00-40.00) mg/dL HDL Cholesterol (40.00-60.00) mg/dL Assessment and Plan Assessment: * Possible stroke/TIA, manifesting with left-sided weakness. * Rule out vertebrobasilar insufficiency * Diabetes * Hypertension * History of liver transplant * Dyslipidemia * Chronic renal disease * History of hepatitis C * History of liver cancer, in remission Plan: * Await MRI of the brain without contrast, evaluate for acute CVA * MRA of the brain rule out vertebrobasilar insufficiency * 2-D echo revealed left ventricular size at upper limits of normal. There is hypokinesia of the inferior septal and inferior basal wall with EF at 45%. Mild global decrease in contractility. Mild left atrial dilation. Negative agitated saline bubble study for [id number] shunt. 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 Small caliber to the vertebral basilar system. Very any chronic symptoms of vertebrobasilar insufficiency. Severe atherosclerotic change of the V3 V4 junction right vertebral artery with loss of enhancement of the distal V4 segment. There is also loss of enhancement at the mid basilar artery. Posterior circulation is preserved due to persistent origin of bilateral REVIEW ASSISTANT. This also provides retrograde flow to the distal basilar artery. Suspect these to be more chronic findings, rather than acute throm bosis. Patent ICAs and anterior circulation. No aneurysm. * ED staff discussed case with neuro intervention Dr. Arias, who believes these are chronic findings however required admission to ICU for every hourly neuro checks as well as initiating aspirin and Brilinta. * Fasting a.m. lipid panel with cholesterol 183, LDL 78, HDL 32, triglycerides 629. Continue Lipitor 40 mg daily (at home on Crestor 5 mg daily) * Hemoglobin A1c 7.8. Recommend optimize control of diabetes to target A1c < 7.0. * Gradual optimize control of blood pressure. * Patient was on aspirin 81 mg daily. Brilinta 180 mg loading dose was given by the ED and now on 90 mg twice a day. * Neuro checks every 4 hours. * Telemetry monitoring rule out any arrhythmia * PT, OT, speech therapy * DVT prophylaxis: Heparin 5000 units subcu every 8 hours * Dr. Theodore Mays to resume neurology service in the morning.
[2025-01-09 07:03] LABS: Glucose,Whole Blood 179 mg/dL (70-110)
[2025-01-09] MEDS: ASPIRIN 81 MG PO SCH (08:42)
[2025-01-09] MEDS: SIROLIMUS PO SCH (08:44)
[2025-01-09 09:56] LABS: Basophils # (A) 0.03 X 10*3/uL (0.00-0.10); Basophils % (A) 0.4 %; Eosinophils # (A) 0.18 X 10*3/uL (0.04-0.35); Eosinophils % (A) 2.4 %; HGB 13.3 g/dL (13.0-17.0); Lymphocytes # (A) 1.63 X 10*3/uL (0.90-5.00); Lymphocytes % (A) 21.6 %; MCH 29.9 pg (27.0-32.0); MCHC 31.7 g/dL (32.0-37.0); MCV 94.4 FL (80.0-97.0); Mean Platelet Volume 12.7 FL (9.5-12.2); Monocytes # (A) 0.64 X 10*3/uL (0.20-1.00); Monocytes % (A) 8.5 %; NRBC Per 100 WBC 0 X 10*3/uL (0.00-0.01); Neutrophils # (A) 5.02 X 10*3/uL (1.80-7.70); Neutrophils % (A) 66.6 %; Platelet Count 184 X 10*3/uL (140-440); RBC 4.45 X 10*6/uL (4.40-5.60); RDW 14.3 % (11.5-14.5); WBC 7.54 X 10*3/uL (4.50-10.00)
[2025-01-09 12:04] LABS: Glucose,Whole Blood 279 mg/dL (70-110)
[2025-01-09 12:49] LABS: BUN/Creat Ratio 20.75 Ratio (12.00-20.00); Blood Urea Nitrogen 33.2 mg/dL (9.0-27.0); Calcium 9.3 mg/dL (8.7-10.3); Carbon Dioxide 23.3 mmol/L (21.6-31.8); Chloride 104 mmol/L (96-109); Glucose 207 mg/dL (70-110); Potassium 4.4 mmol/L (3.5-5.5); Sodium 141 mmol/L (135-145)
--- NOTE | 2025-01-09 13:21 | MR ---
EXAMINATION TYPE: MR angio head wo con DATE OF EXAM: 01/09/2025 1:09 PM COMPARISON: None. CLINICAL INDICATION: Male, 69 years old with history of Vertebrobasilar stenosis, Vertebrobasilar elza nosis IV Contrast: cc (None if empty) TECHNIQUE: Time of flight images focusing on the Otho of [place] were performed without contrast. 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 The left vertebral artery ends in the PICA. The poste rior cerebral arteries fill via the posterior communicating arteries. The carotid systems are widely patent. There is no segmental occlusion, aneurysm sac or vascular malformation. IMPRESSION: Anatomic variants as described above. No segmental occlusion, sizable aneurysm or vascular malformation [facility], Workstation: [id number] 01/09/2025 1:18 PM
--- NOTE | 2025-01-09 13:26 | MR ---
MRI brain without contrast HISTORY: Left-sided weakness, possible CVA. COMPARISON: None TECHNIQUE: Multiecho multiplanar images of brain were obtained without contrast. FINDINGS: The T1-weighted sagittal images, the midline structures including the craniovertebral junction relati onships are normal. The ventricles, basal cisterns and sulci over convexities are mildly to moderately enlarged consisten t with mild to moderate generalized atrophy. There is moderate multifocal areas of abnormal increased signal intensity in the periventricular whit e matter, within the quyen and in the left cerebellum consistent with chronic ischemic white matter de myelination. On the diffusion-weighted images, there is a focus of diffusion restriction in the right anterior asp ect of the brainstem consistent with an acute infarct On the susceptibility weighted images, there is no evidence of hemorrhage. Intraorbital contents appear normal and symmetric. There are mild chronic inflammatory changes in the paranasal sinuses. There is mild fluid in the mast oid air cells. IMPRESSION: 1. Acute infarct in the right anterior aspect of the brainstem. 2. Mild to moderate atrophy and moderate chronic ischemic white matter demyelination [facility], Workstation: [id number] 01/09/2025 1:24 PM
--- NOTE | 2025-01-09 16:11 | P.PN ---
Subjective Progress Note Date: 01/09/25 Hospital Course: 69 year old M with PMH of liver CA and Hep C status post liver transplant of S irolimus, HLD, HTN, GERD, Hypothyroid, DM presents to the ED for left sided weakness that started yesterday afternoon after he finishing mowing the lawn. Symptoms progressively worsened which prompted him to come to the ED today. He denies any slurred speech, confusion, vertigo, vision changes, difficulty swallowing, numbness/tingling of the extremities. He denies any headache, LE edema, N/V, fever or chills, cough, chest pain, shortness of breath, palpitations, changes in urination or bowel habits. No changes in appetite or weight. In the ED he underwent extensive evaluation. BP 152/65, HR 85, T 98.2F, RR 20, 95% on RA. CBC, Coag panel, CMP significant for APTT 21.8, BUN 36, Cr 1.29, glu 237. CPK 201. UA 4+ glucose. Brain CT moderate patchy burden of chronic small vessel disease. CXR post thoracotomy changes on the right, left hemidiaphragm paralysis, atelectasis of the left base. CTA head and neck shows < 15% left ICA stenosis, soft tissue thickening in the supraglottic region, severe atherosclerotic change of the V3/V4 junction right vertebral artery, loss of enhancement of the mid basilar artery. ED provider discussed the case with the neuro-interventionalist who recommended ICU monitoring for Q1 neurochecks. Patient is admitted for further workup and management. TTE showed EF of 45% with hypokinesia of the inferior septal and inferior basal wall, negative bubble study, mild global decrease in contractility, patient states that he has an appointment in [address] Hurtado. 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 Brain MRI showed acute infarct in the right anterior aspect of the brainstem mild to moderate atrophy and moderate chronic ischemic white matter demyelination. Discussed with neurology Dr. Mays, for any neurological decline, patient needs to be transferred stat to ICU, maintain blood pressure above 140s 150s. Pertinent Imaging: As above Subjective: No new complaints, noted previous left-sided weakness, no changes. Patient was resting in the recliner Pertinent positives and negatives as discussed above, a complete review of systems was performed and all other systems are negative. Vitals Signs Reviewed. General: [nontoxic], [no distress], [appears at stated age] Derm: [warm], [dry] Head: [atraumatic], [normocephalic], [symmetric] Eyes: [EOMI], [no lid lag], [anicteric sclera] Mouth: [no lip lesion], [mucus membranes moist] Cardiovascular: [S1S2 reg], [no murmur] Lungs: [CTA bilateral], [no rhonchi, no rales] , [no accessory muscle use] Abdominal: [soft], [ nontender to palpation], [no guarding], [no appreciable organomegaly] Ext: [no gross muscle atrophy], [no edema], [no contractures] Neuro: [ CN II-XI grossly intact], [no focal neuro deficits], strength is 4 out of 5 in left lower extremity, otherwise 5 out of 5, sensations intact Psych: [Alert], [oriented], [appropriate affect] Assessment and Plan: Right brainstem stroke Left-sided weakness -Continue aspirin 81 mg p.o. daily, Brilinta 90 mg p.o. twice daily, Lipitor 40 mg p.o. 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 Brain MRI showed acute infarct in the right anterior aspect of the brainstem mild to moderate atrophy and moderate chronic ischemic white matter demyelination. Discussed with neurology Dr. Mays, for any neurological decline, patient needs to be transferred stat to ICU, maintain blood pressure above 140s 150s Heart failure with moderately reduced ejection fraction EF 45%, not in exacerbation -Follow-up with Dr. Hurtado as scheduled -Permissive hypertension per neurology recommendations, GDMT can be started as outpatient DM with hyperglycemia: Lantus 35 units QHS. ISS + Accuchecks ACHS along with hypoglycemic precautions. Thickening of the supraglottic region with asymmetric effacement of the right piriform sinus: Outpatient ENT eval. Hypertension: Permissive HTN with blood pressure goal around 140 and 150 systolic History of liver transplant: Restart Sirolimus 0.5 mg PO QD. Follows [facility] transplant team in [place]. Dyslipidemia: Lipitor as above. Fenofibrate 160 mg PO QD. GERD: Protonix 40 mg PO QD. Hypothyroidism: Synthroid 112 mcg PO QD. Chronic kidney disease stage III: At baseline. DVT ppx: Heparin Code status: Full code Anticipated discharge place: TBD Anticipated discharge time: TBD Objective - Vital Signs Vital signs: Vital Signs Temp 97.3 F L 01/09/25 11:40 Pulse 91 01/09/25 11:40 Resp 16 01/09/25 11:40 BP 138/71 01/09/25 11:40 Pulse Ox 93 L 01/09/25 11:40 FiO2 Intake & Output 01/08/25 01/09/25 01/09/25 18:59 06:59 18:59 Intake Total 480 Output Total 300 Balance -300 480 Weight 91.4 kg Intake: Oral 480 Output: Urine 300 Other: Voiding Method Urinal Toilet Toilet Urinal Urinal # Voids 5 1 # Bowel Movements 2 1 - Labs CBC & Chem 7: 01/09/25 05:41 01/09/25 05:41 Labs: Abnormal Lab Results - Last 24 Hours (Table) 01/08/25 01/09/25 01/09/25 Range/Units 17:01 05:41 05:41 MCHC 31.7 L (32.0-37.0) g/dL MPV 12.7 H (9.5-12.2) FL Anion Gap 13.70 H (4.00-12.00) mmol/L BUN 33.2 H (9.0-27.0) mg/dL Creatinine 1.6 H (0.6-1.5) mg/dL Est GFR (CKD-EPI) 47 L (>=60) BUN/Creatinine Ratio 20.75 H (12.00-20.00) Ratio Glucose 207 H (70-110) mg/dL POC Glucose (mg/dL) 194 H (70-110) mg/dL 01/09/25 01/09/25 Range/Units 07:01 12:03 MCHC (32.0-37.0) g/dL MPV (9.5-12.2) FL Anion Gap (4.00-12.00) mmol/L BUN (9.0-27.0) mg/dL Creatinine (0.6-1.5) mg/dL Est GFR (CKD-EPI) (>=60) BUN/Creatinine Ratio (12.00-20.00) Ratio Glucose (70-110) mg/dL POC Glucose (mg/dL) 179 H 279 H (70-110) mg/dL
--- NOTE | 2025-01-09 16:49 | P.PN ---
Subjective Progress Note Date: 01/09/25 I am seeing the patient for the first time during this hospital admission. Please refer to Dr. Juares's note for further details. Patient is accompanied with his and it seems the patient presents because of left upper lower extremity weakness since this past Saturday with falls. According to the patient and his they do agree the patient is doing better compared to initial presentation. He denies of any dizziness, any facial weakness, any visual disturbance, any difficulty swallowing or getting his words out. He is walking with a walker without any issues. This seems on the CT angiography of the head and neck there is a concern for loss of enhancement in the mid basilar artery and the posterior circulation is preserved due to persistent origin of bilateral [employer] HEAD which provides retr ograde flow to the distal right artery and it was felt this is more chronic finding rather than acute thrombosis. The ED physician spoke with interventionalists Dr. Arias who agreed that this is more chronic I recommended aspirin and Brilinta and patient to be in the ICU. ICU was consulted and they declined the transfer since the patient was stable. Objective - Vital Signs Vital signs: Vital Signs Temp 97.3 F L 01/09/25 11:40 Pulse 91 01/09/25 11:40 Resp 16 01/09/25 11:40 BP 138/71 01/09/25 11:40 Pulse Ox 93 L 01/09/25 11:40 FiO2 Intake & Output 01/08/25 01/09/25 01/09/25 18:59 06:59 18:59 Intake Total 480 Output Total 300 Balance -300 480 Weight 91.4 kg Intake: Oral 480 Output: Urine 300 Other: Voiding Method Urinal Toilet Toilet Urinal Urinal # Voids 5 1 # Bowel Movements 2 1 - Exam General: Sitting up and is not in acute distress. Neuro: The patient is awake alert oriented to self place and time. Is following simple commands. No aphasia Pupils are round about 3 to 4 mm bilaterally and reactive to light. Visual trujillo are full to confrontation. Extraocular moods intact no nystagmus. No facial weakness. No dysarthria. Motor: Left upper extremity is 4+. Patient has chronic left shoulder issues and has difficulty raising above gravity which is chronic. Left lower extremity is also 4+. Right side is 5 out of 5 Cerebellar wpzcij-nw-mofk somewhat difficult over the left because of left shoulder issues but otherwise normal qemcfr-hl-cnxy. - Labs CBC & Chem 7: 01/09/25 05:41 01/09/25 05:41 Labs: Abnormal Lab Results - Last 24 Hours (Table) 01/08/25 01/09/25 01/09/25 Range/Units 17:01 05:41 05:41 MCHC 31.7 L (32.0-37.0) g/dL MPV 12.7 H (9.5-12.2) FL Anion Gap 13.70 H (4.00-12.00) mmol/L BUN 33.2 H (9.0-27.0) mg/dL Creatinine 1.6 H (0.6-1.5) mg/dL Est GFR (CKD-EPI) 47 L (>=60) BUN/Creatinine Ratio 20.75 H (12.00-20.00) Ratio Glucose 207 H (70-110) mg/dL POC Glucose (mg/dL) 194 H (70-110) mg/dL 01/09/25 01/09/25 Range/Units 07:01 12:03 MCHC (32.0-37.0) g/dL MPV (9.5-12.2) FL Anion Gap (4.00-12.00) mmol/L BUN (9.0-27.0) mg/dL Creatinine (0.6-1.5) mg/dL Est GFR (CKD-EPI) (>=60) BUN/Creatinine Ratio (12.00-20.00) Ratio Glucose (70-110) mg/dL POC Glucose (mg/dL) 179 H 279 H (70-110) mg/dL Assessment and Plan Assessment: Acute ischemic stroke over the brainstem and seems in the right medulla that small in size and his presentation is left-sided weakness 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 Daniels agreed this is more chronic. Patient also has diminutive bilateral vertebral artery with small caliber vertebrobasilar system has severe atherosclerotic changes of the V3/V4 junction Diabetes mellitus Hypertension Dyslipidemia Chronic renal disease History of hepatitis C status post liver transplant History of liver cancer in remission Plan: * MRI of the brain: Acute infarct in the right anterior aspect of the brainstem. * MRA of the brain: Anatomic variants as described above. No segmental occlusion, sizable aneurysm or vascular malformation. 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 There is left vertebral artery ends in PICA. The posterior cerebral artery fills via the posterior commuting artery. 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 Small caliber to the vertebral basilar system. Very any chronic symptoms of vertebrobasilar insufficiency. Severe atherosclerotic change of the V3 V4 junction right vertebral artery with loss of enhancement of the distal V4 segment. There is also loss of enhancement at the mid basilar artery. Posterior circulation is preserved due to persistent origin of bilateral [employer]. This also provides retrograde flow to the distal basilar artery. Suspect these to be more chronic findings, rather than acute thr ombosis. Patent ICAs and anterior circulation. No aneurysm. * ED staff discussed case with neuro intervention Dr. Arias, who believes these are chronic findings however required admission to ICU for every hourly neuro checks as well as initiating aspirin and Brilinta. ICU declined transfer since he was stable. * I reached out to Dr. Arias today (01/09/2025) at 4:51pm and updating him on the MRI and he stated he thinks it was due to rupture plaque in the basilar artery, only medical management and no intervention needed. Will have the patient follow-up with Dr. Arias as outpatient within 1-2 weeks. * Fasting a.m. lipid panel: Triglycerides 629, cholesterol is 183, LDL 78 and HDL is 32. * Hemoglobin A1c 7.8. Recommend optimize control of diabetes to target A1c < 7.0. * Continue permissive hypertension. Please avoid hypotensive episodes. Blood pressure medication are held. Keep the Systolic blood pressure 140-180. * Patient was on aspirin 81 mg daily. Brilinta 180 mg loading dose was given by the ED and now on 90 mg twice a day. * Neuro checks as per protocol. * Telemetry monitoring rule out any arrhythmia * PT, OT, speech therapy * DVT prophylaxis: Heparin 5000 units subcu every 8 hours * If patient has worsening of symptoms, please activate a code stroke and transfer the patient to ICU. Will have Interventionalist neurologist at that time assess for consideration of transfer for any intervention. The plan is discussed with patient, his who is at bedside, nurse and hospitalist. Total time of care is 45 minutes. Time with Patient: Greater than 30
[2025-01-09 16:58] LABS: Glucose,Whole Blood 150 mg/dL (70-110)
[2025-01-09 20:19] LABS: Glucose,Whole Blood 188 mg/dL (70-110)
--- NOTE | 2025-01-09 21:14 | P.PN ---
Subjective Progress Note Date: 01/09/25 This is a 69-year-old male patient who presented to the emergency department with left-sided weakness. A code stroke was activated. The patient was given initial CAT scan of the brain and the CAT scan showed moderate patchy burden of chronic's small vessel ischemic disease without any acute process. 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 Mild atherosclerosis of the carotid bifurcation, less than 50% proximal left ICA stenosis and there was also a soft tissue thickening in the supraglottic region with some asymmetry and effacement of the right piriform sinus and direct visualization by ENT was recommended. The small caliber of the vestibular system raise concerns for vertebrobasilar insufficiency. There was severe atherosclerotic change at the level of V3/V4 junction of the right vertebral artery with loss of enhancement of the distal V4 segment. There was also loss and enhancement at the mid basilar artery. The posterior circulation was preserved due to persistent origin of the bilateral structurer. There was also retrograde flow to the distal basilar artery and this is suspected to be chronic rather than acute thrombosis. Neuro interventionalists was consulted and the patient was not given thrombolytics. He was recommended for this patient to come to the ICU for hourly neurochecks. Cardiac rhythm is sinus. Hemodynamically stable. No significant hyper or hypotension. The CBC is within normal limits. Coagulation profile is within normal limits. BUN 36 with a creatinine of 1.20 patient is chronic stage III kidney disease and the current GFR is 57. Electrolytes all within normal limits. LFTs are normal. The patient has undergone previous liver transplantation for liver cancer. This was a complication of previous hepatitis C infection. Is also undergone a left lower lobe resection where metastasis was present in the left lung. He does h ave chronic left hemidiaphragmatic paralysis post surgery and the left hemidiaphragm remains quite elevated. Other comorbidities include hypothyroidism, diabetes and hyperlipidemia and hypertension. He is maintained on Rapamune on a chronic basis. On 01/08/2025, the patient sitting up on a chair. He attempted to ambulate and he was found to be a bit ataxic and out of balance with some left-sided weakness from patient was able to move around with the help of a walker under supervision. He is still complaining of some weakness in left upper extremity. MRI of the brain was ordered. Remains on aspirin. Remains on Brilinta. Rest of the medication remain unchanged. Patient on Lipitor 40 mg p.o. daily. Blood pressure is stable. He is on Lantus insulin 35 units at bedtime. Neurology on the case. No new blood work from today. He is on room air oxygen. He is hemodynamically stable. Cardiac rhythm remains sinus. There is always time that 01/09/2025, the patient to the medical floor. He seems to doing well and his condition is stable. No new onset neurological deficits. He is walking with the help of a walker without any issues. MRI of the brain was done and it showed acute infarct in the right anterior aspect of the brainstem. There was also mild to moderate atrophy and moderate chronic ischemic white matter demyelination. The MRA showed anatomic variants without any significant occlusion or aneurysm or vascular malformation. White cell count 7.5, it was 13.3 with a platelet count of 184. BUN is 33 with a creatinine of 1.6 and a sodium level is at 141. Potassium levels of 4.4. Remains on aspirin and Brilinta. Remains on sirolimus. Remains on Lantus insul in 35 units and sliding scale coverage. The patient is also on fenofibrate. Afebrile. Currently on room air oxygen with a pulse ox of 96%.Echo showed an ejection fraction of 45% and hypokinesis involving the inferobasal and inferoseptal wall with mild global decrease in the contractility and no s ignificant valvular disease. Right-sided pressures were normal. Bubble study was negative for a auofi-lq-ewtu shunt. Objective - Vital Signs Vital signs: Vital Signs Temp 98.3 F 01/09/25 17:51 Pulse 102 H 01/09/25 17:51 Resp 16 01/09/25 17:51 BP 141/91 01/09/25 17:51 Pulse Ox 96 01/09/25 17:51 FiO2 Intake & Output 01/09/25 01/09/25 01/10/25 06:59 18:59 06:59 Intake Total 2960 Balance 2960 Weight 91.4 kg Intake: Oral 2960 Other: Voiding Method Toilet Toilet Urinal Urinal # Voids 1 4 # Bowel Movements 1 2 - Exam The patient appeared well nourished and normally developed. Vital signs as documented. Head exam is unremarkable. No scleral icterus or corneal arcus noted. Neck is without jugular venous distension, thyromegaly, or carotid bruits. Carotid upstrokes are brisk bilaterally. Lungs are clear to auscultation and percussion. Cardiac exam reveals the PMI to be normally sized and situated. Rhythm is regular. First and second heart sounds normal. No murmurs, rubs or gallops. Abdominal exam reveals normal bowel sounds, no masses, no organomegaly and no aortic enlargement. Extremities are nonedematous and both femoral and pedal pulses are normal. Examination of the skin revealed no evidence of significant rashes, suspicious appearing nevi or other concerning lesions. Neurologically, the patient is awake and alert and the patient does have some left upper extremity weakness compared to the right and the motor function estimated to be 4 out of 5. Reflexes are equal and symmetrical bilaterally. Normal speech. Gait was not evaluated. Cranial nerves are essentially intact. - Labs CBC & Chem 7: 01/09/25 05:41 01/09/25 05:41 Labs: Abnormal Lab Results - Last 24 Hours (Table) 01/09/25 01/09/25 01/09/25 Range/Units 05:41 05:41 07:01 MCHC 31.7 L (32.0-37.0) g/dL MPV 12.7 H (9.5-12.2) FL Anion Gap 13.70 H (4.00-12.00) mmol/L BUN 33.2 H (9.0-27.0) mg/dL Creatinine 1.6 H (0.6-1.5) mg/dL Est GFR (CKD-EPI) 47 L (>=60) BUN/Creatinine Ratio 20.75 H (12.00-20.00) Ratio Glucose 207 H (70-110) mg/dL POC Glucose (mg/dL) 179 H (70-110) mg/dL 01/09/25 01/09/25 01/09/25 Range/Units 12:03 16:57 20:16 MCHC (32.0-37.0) g/dL MPV (9.5-12.2) FL Anion Gap (4.00-12.00) mmol/L BUN (9.0-27.0) mg/dL Creatinine (0.6-1.5) mg/dL Est GFR (CKD-EPI) (>=60) BUN/Creatinine Ratio (12.00-20.00) Ratio Glucose (70-110) mg/dL POC Glucose (mg/dL) 279 H 150 H 188 H (70-110) mg/dL Assessment and Plan Plan: Acute CVA with left-sided weakness. The patient continues to have some residual weakness in the left upper extremity. No cranial nerve deficits. Hemodynamically stable and the patient has normal sinus rhythm. CTA of the brain was done and the findings were noted. The patient had diminished bilateral vertebral arteries with a nondominant right vertebral artery, likely on a congenital basis. Mild atherosclerosis of the carotid bifurcation, less than 50% proximal left ICA stenosis and there was also a soft tissue thickening in the supraglottic region with some asymmetry and effacement of the right piriform sinus and direct visualization by ENT was recommended. The small caliber of the vestibular system raise concerns for vertebrobasilar insufficiency. There was severe atherosclerotic change at the level of V3/V4 junction of the right vertebral artery with loss of enhancement of the distal V4 segment. There was also loss and enhancement at the mid basilar artery. The posterior circulation was preserved due to persistent origin of the bilateral structurer. There was also retrograde flow to the distal basilar artery and this is suspected to be chronic rather than acute thrombosis. The patient is currently on a combination of aspirin and Brilinta. Blood pressure is stable. Over the past 24 hours, the patient has remained stable with ongoing left-sided weakness and difficulty with mobility and gait. MRI of the brain showed a right midbrain stroke. MRI of the brain showed no vascular abnormalities. No stenosis or occlusion. Liver transplantation for an underlying hepatic carcinoma, maintained Rapamune Left lower lobe resection for metastatic lung disease Chronic left hemidiaphragmatic elevation/paralysis Hypertension Hyperlipidemia Hypothyroidism Chronic immunosuppression with Rapamune Plan Monitor hemodynamics Monitor blood pressure and avoid any hypotension. Current systolic blood pressure is above 140. Continue aspirin and Brilinta Neurology consultation is appreciated MRI of the brain showing an ischemic stroke in the right midbrain. MRI is negative. 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
[2025-01-10 06:56] LABS: Glucose,Whole Blood 178 mg/dL (70-110)
[2025-01-10 09:52] LABS: Blood Urea Nitrogen 30.6 mg/dL (9.0-27.0); Calcium 9.4 mg/dL (8.7-10.3); Chloride 106 mmol/L (96-109); Glucose 158 mg/dL (70-110); Potassium 4.1 mmol/L (3.5-5.5); Sodium 142 mmol/L (135-145)
--- NOTE | 2025-01-10 11:07 | P.PN ---
Subjective Progress Note Date: 01/10/25 I am following-up with the patient and he feels the same and denies any new neurological issues or worsening of symptoms. 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 He has old torn rotator shoulder. Objective - Vital Signs Vital signs: Vital Signs Temp 97.9 F 01/10/25 07:14 Pulse 90 01/10/25 07:14 Resp 16 01/10/25 07:14 BP 147/91 01/10/25 07:14 Pulse Ox 93 L 01/10/25 07:14 FiO2 Intake & Output 01/09/25 01/10/25 01/10/25 18:59 06:59 18:59 Intake Total 2960 Balance 2960 Weight 91.7 kg Intake: Oral 2960 Other: Voiding Method Toilet Toilet Urinal Urinal # Voids 4 2 # Bowel Movements 2 - Exam General: Sitting up and is not in acute distress. Neuro: The patient is awake alert oriented to self place and time. Is following simple commands. No aphasia Pupils are round about 3 to 4 mm bilaterally and reactive to light. Has ptosis of the right eyes (old). Right eye primary gaze is slight disconjugate (old). Visual trujillo are full to confrontation. Extraocular moods intact no nystagmus. No facial weakness. No dysarthria. Motor: Left upper extremity is 4+. Patient has chronic left shoulder issues and has difficulty raising above gravity which is chronic. Left lower extremity is also 4+. Right side is 5 out of 5 Cerebellar fwfoiz-ux-cfnd somewhat difficult over the left because of left shoulder issues but otherwise normal fcaejn-ai-[id number]. - Labs CBC & Chem 7: 01/09/25 05:41 01/10/25 04:59 Labs: Abnormal Lab Results - Last 24 Hours (Table) 01/09/25 01/09/25 01/09/25 Range/Units 05:41 12:03 16:57 Anion Gap 13.70 H (4.00-12.00) mmol/L BUN 33.2 H (9.0-27.0) mg/dL Creatinine 1.6 H (0.6-1.5) mg/dL Est GFR (CKD-EPI) 47 L (>=60) BUN/Creatinine Ratio 20.75 H (12.00-20.00) Ratio Glucose 207 H (70-110) mg/dL POC Glucose (mg/dL) 279 H 150 H (70-110) mg/dL 01/09/25 01/10/25 01/10/25 Range/Units 20:16 04:59 06:55 Anion Gap (4.00-12.00) mmol/L BUN 30.6 H (9.0-27.0) mg/dL Creatinine 1.7 H (0.6-1.5) mg/dL Est GFR (CKD-EPI) 43 L (>=60) BUN/Creatinine Ratio (12.00-20.00) Ratio Glucose 158 H (70-110) mg/dL POC Glucose (mg/dL) 188 H 178 H (70-110) mg/dL Assessment and Plan Assessment: Acute ischemic stroke over the brainstem and seems in the right medulla that small in size and his presentation is left-sided weakness 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 Loss of enhancement of mid basilar artery on the CT angiography and was felt due to chronic rather than acute and that interventionalists neurologist Dr. Arias agreed this is more chronic. Patient also has diminutive bilateral vertebral artery with small caliber vertebrobasilar system has severe atherosclerotic changes of the V3/V4 junction. Dr. Arias felt it was ruptures plaques for basilar artery. Diabetes mellitus Hypertension Dyslipidemia Chronic renal disease History of hepatitis C status post liver transplant History of liver cancer in remission Plan: * MRI of the brain: Acute infarct in the right anterior aspect of the brainstem. * MRA of the brain: Anatomic variants as described above. No segmental occlusion, sizable aneurysm or vascular malformation. 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 There is left vertebral artery ends in PICA. The posterior cerebral artery fills via the posterior commuting artery. 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 Small caliber to the vertebral basilar system. Very any chronic symptoms of vertebrobasilar insufficiency. Severe atherosclerotic change of the V3 V4 junction right vertebral artery with loss of enhancement of the distal V4 segment. There is also loss of enhancement at the mid basilar artery. Posterior circulation is preserved due to persistent origin of bilateral [employer]. This also provides retrograde flow to the distal basilar artery. Suspect these to be more chronic findings, rather than acute thrombosis. Patent ICAs and anterior circulation. No aneurysm. * ED staff discussed case with neuro intervention Dr. Arias, who believes these are chronic findings however required admission to ICU for every hourly neuro checks as well as initiating aspirin and Brilinta. ICU declined transfer since he was stable. * I reached out to Dr. Arias today (01/09/2025) and updating him on the MRI and he stated he thinks it was due to rupture plaque in the basilar artery, only medical management and no intervention needed. Will have the patient follow- up with Dr. Arias as outpatient within 1-2 weeks. * Fasting a.m. lipid panel: Triglycerides 629, cholesterol is 183, LDL 78 and HDL is 32. * Hemoglobin A1c 7.8. Recommend optimize control of diabetes to target A1c < 7.0. * Continue permissive hypertension. Please avoid hypotensive episodes. Blood pressure medication are held. Keep the Systolic blood pressure 140-180. * Patient was on aspirin 81 mg daily. Brilinta 180 mg loading dose was given by the ED and now on 90 mg twice a day. * Neuro checks as per protocol. * Telemetry monitoring rule out any arrhythmia * PT, OT, speech therapy * DVT prophylaxis: Heparin 5000 units subcu every 8 hours * If patient has worsening of symptoms, please activate a code stroke and transfer the patient to ICU. Will have Interventionalist neurologist at that time assess for consideration of transfer for any intervention. The plan is discussed with patient nurse and hospitalist. Time with Patient: Less than 30
--- NOTE | 2025-01-10 11:22 | P.PN ---
Subjective Progress Note Date: 01/10/25 Hospital Course: 69 year old M with PMH of liver CA and Hep C status post liver transplant of S irolimus, HLD, HTN, GERD, Hypothyroid, DM presents to the ED for left sided weakness that started yesterday afternoon after he finishing mowing the lawn. Symptoms progressively worsened which prompted him to come to the ED today. He denies any slurred speech, confusion, vertigo, vision changes, difficulty swallowing, numbness/tingling of the extremities. He denies any headache, LE edema, N/V, fever or chills, cough, chest pain, shortness of breath, palpitations, changes in urination or bowel habits. No changes in appetite or weight. In the ED he underwent extensive evaluation. BP 152/65, HR 85, T 98.2F, RR 20, 95% on RA. CBC, Coag panel, CMP significant for APTT 21.8, BUN 36, Cr 1.29, glu 237. CPK 201. UA 4+ glucose. Brain CT moderate patchy burden of chronic small vessel disease. CXR post thoracotomy changes on the right, left hemidiaphragm paralysis, atelectasis of the left base. CTA head and neck shows < 15% left ICA stenosis, soft tissue thickening in the supraglottic region, severe atherosclerotic change of the V3/V4 junction right vertebral artery, loss of enhancement of the mid basilar artery. ED provider discussed the case with the neuro-interventionalist who recommended ICU monitoring for Q1 neurochecks. Patient is admitted for further workup and management. TTE showed EF of 45% with hypokinesia of the inferior septal and inferior basal wall, negative bubble study, mild global decrease in contractility, patient states that he has an appointment in [address] Hurtado. 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 Brain MRI showed acute infarct in the right anterior aspect of the brainstem mild to moderate atrophy and moderate chronic ischemic white matter demyelination. Discussed with neurology Dr. Mays, for any neurological decline, patient needs to be transferred stat to ICU, maintain blood pressure above 140s 150s. 01/10: Patient was seen and examined at bedside, no acute events overnight, no new symptoms. Lab work significant for ANNIE, patient will receive IV bolus of LR 500 followed by continuous infusion at 130 cc/h discussed with Dr. Mays again, he contacted Dr. Arias with updated MRI results, he believed there is a ruptured plaque in the basilar artery and suggested on the medical management, no surgical intervention, patient to follow-up with Dr. Arias as outpatient Pertinent Imaging: As above Subjective: No new complaints, noted previous left-sided weakness, no changes. Patient was resting in the recliner Pertinent positives and negatives as discussed above, a complete review of systems was performed and all other systems are negative. Vitals Signs Reviewed. General: [nontoxic], [no distress], [appears at stated age] Derm: [warm], [dry] Head: [atraumatic], [normocephalic], [symmetric] Eyes: [EOMI], [no lid lag], [anicteric sclera] Mouth: [no lip lesion], [mucus membranes moist] Cardiovascular: [S1S2 reg], [no murmur] Lungs: [CTA bilateral], [no rhonchi, no rales] , [no accessory muscle use] Abdominal: [soft], [ nontender to palpation], [no guarding], [no appreciable organomegaly] Ext: [no gross muscle atrophy], [no edema], [no contractures] Neuro: [ CN II-XI grossly intact], [no focal neuro deficits], strength is 4 out of 5 in left lower extremity, otherwise 5 out of 5, sensations intact Psych: [Alert], [oriented], [appropriate affect] Assessment and Plan: Right brainstem stroke Left-sided weakness -Continue aspirin 81 mg p.o. daily, Brilinta 90 mg p.o. twice daily, Lipitor 40 mg p.o. 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 Brain MRI showed acute infarct in the right anterior aspect of the brainstem mild to moderate atrophy and moderate chronic ischemic white matter demyelination. Discussed with neurology Dr. Mays, for any neurological decline, patient needs to be transferred stat to ICU, maintain blood pressure above 140s 150s -Discussed with Dr. Mays again, he contacted Dr. Arias with updated MRI results, he believed there is a ruptured plaque in the basilar artery and suggested on the medical management, no surgical intervention, patient to follow-up with Dr. Arias as outpatient Heart failure with moderately reduced ejection fraction EF 45%, not in exacerbation -Follow-up with Dr. Hurtado as scheduled -Permissive hypertension per neurology recommendations, GDMT can be started as outpatient ANNIE on CKD stage II -Creatinine on admission 1.29, up to 1.7, LR bolus 500 followed by continuous infusion 130 cc/h, monitor BMP DM with hyperglycemia: Lantus 35 units QHS. ISS + Accuchecks ACHS along with hypoglycemic precautions. Thickening of the supraglottic region with asymmetric effacement of the right piriform sinus: Outpatient ENT eval. Hypertension: Permissive HTN with blood pressure goal around 140 and 150 s ystolic History of liver transplant: Restart Sirolimus 0.5 mg PO QD. Follows [facility] transplant team in [place]. Dyslipidemia: Lipitor as above. Fenofibrate 160 mg PO QD. GERD: Protonix 40 mg PO QD. Hypothyroidism: Synthroid 112 mcg PO QD. Chronic kidney disease stage III: At baseline. DVT ppx: Heparin Code status: Full code Anticipated discharge place: [facility] Anticipated discharge time: TBD Objective - Vital Signs Vital signs: Vital Signs Temp 97.9 F 01/10/25 07:14 Pulse 90 01/10/25 07:14 Resp 16 01/10/25 07:14 BP 147/91 01/10/25 07:14 Pulse Ox 93 L 01/10/25 07:14 FiO2 Intake & Output 01/09/25 01/10/25 01/10/25 18:59 06:59 18:59 Intake Total 2960 Balance 2960 Weight 91.7 kg Intake: Oral 2960 Other: Voiding Method Toilet Toilet Urinal Urinal # Voids 4 2 # Bowel Movements 2 - Labs CBC & Chem 7: 01/09/25 05:41 01/10/25 04:59 Labs: Abnormal Lab Results - Last 24 Hours (Table) 01/09/25 01/09/25 01/09/25 Range/Units 05:41 12:03 16:57 Anion Gap 13.70 H (4.00-12.00) mmol/L BUN 33.2 H (9.0-27.0) mg/dL Creatinine 1.6 H (0.6-1.5) mg/dL Est GFR (CKD-EPI) 47 L (>=60) BUN/Creatinine Ratio 20.75 H (12.00-20.00) Ratio Glucose 207 H (70-110) mg/dL POC Glucose (mg/dL) 279 H 150 H (70-110) mg/dL 01/09/25 01/10/25 01/10/25 Range/Units 20:16 04:59 06:55 Anion Gap (4.00-12.00) mmol/L BUN 30.6 H (9.0-27.0) mg/dL Creatinine 1.7 H (0.6-1.5) mg/dL Est GFR (CKD-EPI) 43 L (>=60) BUN/Creatinine Ratio (12.00-20.00) Ratio Glucose 158 H (70-110) mg/dL POC Glucose (mg/dL) 188 H 178 H (70-110) mg/dL
[2025-01-10] MEDS: LACTATED RINGERS 500 ML IV ONE (11:52)
[2025-01-10] MEDS: LACTATED RINGERS 1,000 ML IV SCH (11:53)
[2025-01-10 11:57] LABS: Glucose,Whole Blood 240 mg/dL (70-110)
[2025-01-10 12:12] LABS: Glucose,Whole Blood 186 mg/dL (70-110)
[2025-01-10 17:03] LABS: Glucose,Whole Blood 208 mg/dL (70-110)
[2025-01-10 20:15] LABS: Glucose,Whole Blood 206 mg/dL (70-110)
[2025-01-11 07:16] LABS: Glucose,Whole Blood 209 mg/dL (70-110)
[2025-01-11 07:26] VITALS: RESP 16
[2025-01-11 08:34] LABS: BUN/Creat Ratio 20.86 Ratio (12.00-20.00); Blood Urea Nitrogen 29.2 mg/dL (9.0-27.0); Calcium 9.4 mg/dL (8.7-10.3); Carbon Dioxide 25.6 mmol/L (21.6-31.8); Chloride 105 mmol/L (96-109); Glucose 158 mg/dL (70-110); Sodium 140 mmol/L (135-145)
[2025-01-11 12:22] LABS: Glucose,Whole Blood 210 mg/dL (70-110)
[2025-01-11 12:33] VITALS: BP 177/94; PULSE 88; TEMP 98.3
[2025-01-11] MEDS: INSULIN LISPRO (HumaLOG) 100 UNIT/ML 10 mL VL SQ SCH (13:17)
--- NOTE | 2025-01-11 13:49 | P.DS ---
Providers Date of admission: 01/07/25 14:00 Attending physician: Adria Dillard Consults: 01/07/25 13:58 Consult Physician Stat Consulting Provider: Mily Ibrahim Consult Reason/Comments: icu care. Q1hr neuro checks Do you want consulting provider notified?: Already Contacted 01/07/25 13:59 Consult Physician Urgent Consulting Provider: Ronald Juares Consult Reason/Comments: CVA Do you want consulting provider notified?: Yes Primary care physician: [facility] Course: Discharge Diagnosis: Acute ischemic stroke, right brainstem, right medulla with left-sided weakness Loss of enhancement of mid basilar artery on the CT angiography diminutive bilateral vertebral artery with small caliber vertebrobasilar system has severe atherosclerotic changes of the V3/V4 junction, possible basilar upper tree ruptured plaques per neurointerventional list Heart failure with moderately reduced ejection fraction not in acute exacerbation, EF 45% ANNIE on CKD stage II, resolved Type II DM Thickening of the supraglottic region with asymptomatic effacement of the right piriformis sinus Hypertension History of liver transplant Dyslipidemia GERD Hypothyroidism Hospital Course: 69 year old M with PMH of liver CA and Hep C status post liver transplant of Sirolimus, HLD, HTN, GERD, Hypothyroid, DM presents to the ED for left sided weakness that started yesterday afternoon after he finishing mowing the lawn. Symptoms progressively worsened which prompted him to come to the ED today. He denies any slurred speech, confusion, vertigo, vision changes, difficulty swallowing, numbness/tingling of the extremities. He denies any headache, LE edema, N/V, fever or chills, cough, chest pain, shortness of breath, palpitations, changes in urination or bowel habits. No changes in appetite or weight. In the ED he underwent extensive evaluation. BP 152/65, HR 85, T 98.2F, RR 20, 95% on RA. CBC, Coag panel, CMP significant for APTT 21.8, BUN 36, Cr 1.29, glu 237. CPK 201. UA 4+ glucose. Brain CT moderate patchy burden of chronic small vessel disease. CXR post thoracotomy changes on the right, left hemidiaphragm paralysis, atelectasis of the left base. CTA head and neck shows < 15% left ICA stenosis, soft tissue thickening in the supraglottic region, severe atherosclerotic change of the V3/V4 junction right vertebral artery, loss of enhancement of the mid basilar artery. ED provider discussed the case with the neuro-interventionalist who recommended ICU monitoring for Q1 neurochecks. Patient is admitted for further workup and management. TTE showed EF of 45% with hypokinesia of the inferior septal and inferior basal wall, negative bubble study, mild global decrease in contractility, patient states that he has an appointment in [address] Hurtado. 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 Brain MRI showed acute infarct in the right anterior aspect of the brainstem mild to moderate atrophy and moderate chronic ischemic white matter demyelination. Discussed with neurology Dr. Mays, for any neurological decline, patient needs to be transferred stat to ICU, maintain blood pressure above 140s 150s. 01/10: Patient was seen and examined at bedside, no acute events overnight, no new symptoms. Lab work significant for ANNIE, patient will receive IV bolus of LR 500 followed by continuous infusion at 130 cc/h discussed with Dr. Mays again, he contacted Dr. Arias with updated MRI results, he believed there is a ruptured plaque in the basilar artery and suggested on the medical management, no surgical intervention, patient to follow-up with Dr. Arias as outpatient 01/11: No acute events overnight, no new complaints, discussed with neurology, patient stable for discharge. Patient to follow-up with cardiology, neurointerventionalist, recommend requesting ENT referral. Creatinine improved, patient was recommended to gradually resume his blood pressure medication with losartan started in 3 to 5 days and closely follow-up with PCP Discharged on Brilinta 90 twice daily, atorvastatin 40 mg daily, along with aspirin 81 mg daily, no other medication changes Patient seen and examined at bedside.[] Vital signs reviewed and stable. General: [nontoxic], [no distress], [appears at stated age] Derm: [warm], [dry] Head: [atraumatic], [normocephalic], [symmetric] Eyes: [EOMI], [no lid lag], [anicteric sclera] Mouth: [no lip lesion], [mucus membranes moist] Cardiovascular: [S1S2 reg], [no murmur] Lungs: [CTA bilateral], [no rhonchi, no rales] , [no accessory muscle use] Abdominal: [soft], [ nontender to palpation], [no guarding], [no appreciable organomegaly] Ext: [no gross muscle atrophy], [no edema], [no contractures] Neuro: [ CN II-XI grossly intact], [no focal neuro deficits], strength is 4 out of 5 in left lower extremity, otherwise 5 out of 5, sensations intact Psych: [Alert], [oriented], [appropriate affect] A total of 40 minutes of time were spent preparing this complex discharge summary. Patient was discharged on 01/11. Patient Condition at Discharge: Stable Plan - Discharge Summary New Discharge Prescriptions: New Ticagrelor [Brilinta] 90 mg PO BID #60 tab Atorvastatin [Lipitor] 40 mg PO DAILY #30 tab Continue Ergocalciferol (Vitamin D2) [Drisdol (50,000 Iu)] 1,250 mcg PO SA traZODone HCL [Desyrel] 100 mg PO HS Sirolimus [Rapamune] 0.5 mg PO DAILY Losartan [Cozaar] 50 mg PO DAILY Levothyroxine Sodium 112 mcg PO DAILY Fluticasone Nasal [place] [Flonase Nasal [place]] 1 spray EA NOSTRIL BID carvediloL 12.5 mg PO BID-W/MEALS amLODIPine [Norvasc] 5 mg PO BID Aspirin [Adult Low Dose Aspirin EC] 81 mg PO DAILY Semaglutide [Ozempic] 1 mg SQ TU Omeprazole 40 mg PO DAILY Empagliflozin [Jardiance] 25 mg PO DAILY [place]-3/Dha/Epa/Fish Oil [Fish Oil 1,000 mg Softgel] 2 cap PO DAILY Albuterol Sulfate [Albuterol Sulfate Hfa] 2 puff INHALATION RT-Q6H PRN PRN Reason: Shortness Of Breath Insulin Glargine,Hum.rec.anlog [Lantus Solostar Pen] 35 units SQ DAILY Fenofibrate Nanocrystallized [Fenofibrate] 145 mg PO DAILY Nateglinide 120 mg PO TID Cetirizine HCl 10 mg PO DAILY Loperamide [Imodium] 2 mg PO Q8H PRN PRN Reason: IBS Ketoconazole 2% Shampoo [Nizoral] 1 applic TOPICAL Q48H PRN PRN Reason: Skin Irritation Discontinued Rosuvastatin Calcium [Crestor] 5 mg PO DAILY Discharge Medication List Ergocalciferol (Vitamin D2) [Drisdol (50,000 Iu)] 1,250 mcg PO SA 04/30/22 [History] Fenofibrate Nanocrystallized [Fenofibrate] 145 mg PO DAILY 04/30/22 [History] Fluticasone Nasal [place] [Flonase Nasal [place]] 1 spray EA NOSTRIL BID 04/30/22 [History] Insulin Glargine,Hum.rec.anlog [Lantus Solostar Pen] 35 units SQ DAILY 04/30/22 [History] Levothyroxine Sodium 112 mcg PO DAILY 04/30/22 [History] Losartan [Cozaar] 50 mg PO DAILY 04/30/22 [History] Sirolimus [Rapamune] 0.5 mg PO DAILY 04/30/22 [History] amLODIPine [Norvasc] 5 mg PO BID 04/30/22 [History] carvediloL 12.5 mg PO BID-W/MEALS 04/30/22 [History] traZODone HCL [Desyrel] 100 mg PO HS 04/30/22 [History] Aspirin [Adult Low Dose Aspirin EC] 81 mg PO DAILY 10/16/24 [History] Cetirizine HCl 10 mg PO DAILY 10/19/24 [History] Empagliflozin [Jardiance] 25 mg PO DAILY 10/19/24 [History] Ketoconazole 2% Shampoo [Nizoral] 1 applic TOPICAL Q48H PRN 10/19/24 [History] Loperamide [Imodium] 2 mg PO Q8H PRN 10/19/24 [History] Nateglinide 120 mg PO TID 10/19/24 [History] Omeprazole 40 mg PO DAILY 10/19/24 [History] Semaglutide [Ozempic] 1 mg SQ TU 10/19/24 [History] Albuterol Sulfate [Albuterol Sulfate Hfa] 2 puff INHALATION RT-Q6H PRN 01/07/25 [History] [place]-3/Dha/Epa/Fish Oil [Fish Oil 1,000 mg Softgel] 2 cap PO DAILY 01/07/25 [History] Atorvastatin [Lipitor] 40 mg PO DAILY #30 tab 01/11/25 [Rx] Ticagrelor [Brilinta] 90 mg PO BID #60 tab 01/11/25 [Rx] Follow up Appointment(s)/Referral(s): Bryson Arias MD [STAFF PHYSICIAN] - 1 Week Alexi Juarez DO [Primary Care Provider] - 1-2 days Patient Instructions/Handouts: Ischemic Stroke (DC) Activity/Diet/Wound Care/Special Instructions: Please, follow-up with your primary care physician, neurologist Please, monitor your blood pressure daily, keep a log of the readings to discuss with your primary care physician, continue to monitor your blood sugars. Your A1c was 7.8. Kidney function improved, please, make sure you stay hydrated, recommend to gradually resume your blood pressure medications within the next several days starting with amlodipine and Coreg, lastly can resume losartan in 3 to 5 days. Please, make sure you contact your primary care physician if your blood pressure runs above 180s or constantly below 110s Discharge Disposition: HOME WITH HOME HEALTH SERVICES
--- NOTE | 2025-01-11 14:10 | P.PN ---
Subjective Progress Note Date: 01/11/25 I am following-up with patient and he feels he is the same as yesterday and not worse. Denies any new neurological issues. Objective - Vital Signs Vital signs: Vital Signs Temp 98.3 F 01/11/25 12:10 Pulse 88 01/11/25 12:10 Resp 16 01/11/25 12:10 BP 177/94 01/11/25 12:10 Pulse Ox 98 01/11/25 12:10 FiO2 Intake & Output 01/10/25 01/11/25 01/11/25 18:59 06:59 18:59 Intake Total 2280 Balance 2280 Weight 94.3 kg Intake: Oral 2280 Other: Voiding Method Toilet Toilet Toilet Urinal Urinal Urinal # Voids 4 2 # Bowel Movements 2 - Exam General: Sitting up and is not in acute distress. Neuro: The patient is awake alert oriented to self place and time. Is following simple commands. No aphasia Pupils are round about 3 to 4 mm bilaterally and reactive to light. Has ptosis of the right eyes (old). Right eye primary gaze is slight disconjugate (old). Visual trujillo are full to confrontation. Extraocular moods intact no nystagmus. No facial weakness. No dysarthria. Motor: Left upper extremity is 4+. Patient has chronic left shoulder issues and has difficulty raising above gravity which is chronic. Left lower extremity is also 4+. Right side is 5 out of 5 Cerebellar [id number] somewhat difficult over the left because of left shoulder issues but otherwise normal [id number]. - Labs CBC & Chem 7: 01/09/25 05:41 01/11/25 04:05 Labs: Abnormal Lab Results - Last 24 Hours (Table) 01/10/25 01/10/25 01/11/25 Range/Units 17:02 20:13 04:05 BUN 29.2 H (9.0-27.0) mg/dL Est GFR (CKD-EPI) 55 L (>=60) BUN/Creatinine Ratio 20.86 H (12.00-20.00) Ratio Glucose 158 H (70-110) mg/dL POC Glucose (mg/dL) 208 H 206 H (70-110) mg/dL 01/11/25 01/11/25 Range/Units 07:05 12:13 BUN (9.0-27.0) mg/dL Est GFR (CKD-EPI) (>=60) BUN/Creatinine Ratio (12.00-20.00) Ratio Glucose (70-110) mg/dL POC Glucose (mg/dL) 209 H 210 H (70-110) mg/dL Assessment and Plan Assessment: Acute ischemic stroke over the brainstem and seems in the right medulla that small in size and his presentation is left-sided weakness 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 Loss of enhancement of mid basilar artery on the CT angiography and was felt due to chronic rather than acute and that interventionalists neurologist Dr. Hugo pearson greed this is more chronic. Patient also has diminutive bilateral vertebral artery with small caliber vertebrobasilar system has severe atherosclerotic changes of the V3/V4 junction. Dr. Arias felt it was ruptures plaques for basilar artery. Diabetes mellitus Hypertension Dyslipidemia Chronic renal disease History of hepatitis C status post liver transplant History of liver cancer in remission Plan: * MRI of the brain: Acute infarct in the right anterior aspect of the brainstem. * MRA of the brain: Anatomic variants as described above. No segmental occlusion, sizable aneurysm or vascular malformation. 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 There is left vertebral artery ends in PICA. The posterior cerebral artery fills via the posterior commuting artery. 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 Small caliber to the vertebral basilar system. Very any chronic symptoms of vertebrobasilar insufficiency. Severe atherosclerotic change of the V3 V4 junction right vertebral artery with loss of enhancement of the distal V4 segment. There is also loss of enhancement at the mid basilar artery. Posterior circulation is preserved due to persistent origin of bilateral STRU[employer] DES[employer]ER. This also provides retrograde flow to the distal basilar artery. Suspect these to be more chronic findings, rather than acute thrombosis. Patent ICAs and anterior circulation. No aneurysm. * ED staff discussed case with neuro intervention Dr. Arias, who believes these are chronic findings however required admission to ICU for every hourly neuro checks as well as initiating aspirin and Brilinta. ICU declined transfer si nce he was stable. * I reached out to Dr. Arias today (01/09/2025) and updating him on the MRI and he stated he thinks it was due to rupture plaque in the basilar artery, only medical management and no intervention needed. Will have the patient follow- up with Dr. Arias as outpatient within 1-2 weeks. * Fasting a.m. lipid panel: Triglycerides 629, cholesterol is 183, LDL 78 and HDL is 32. * Hemoglobin A1c 7.8. Recommend optimize control of diabetes to target A1c < 7.0. * Please avoid hypotensive episodes. * Patient was on aspirin 81 mg daily. Brilinta 180 mg loading dose was given by the ED and now on 90 mg twice a day. * Neuro checks as per protocol. * Telemetry monitoring rule out any arrhythmia * PT, OT, speech therapy * DVT prophylaxis: Heparin 5000 units subcu every 8 hours * Recommend the patient to follow-up with Dr. Arias as outpatient within 2 weeks The plan is discussed with patient and hospitalist. There is no further neurological work-up. Will sign off. Please reconsult if needed. Time with Patient: Less than 30
== END 2025-01-11 15:54 | disposition home health service (06) | DRG 70 ==
LOC: EC 09:53 → 2SICU 14:00 → 5NMEDONC 01-08 18:26
PROVIDERS: ADMIT Student in an Organized Health Care Education/Training Program; ATTEND Student in an Organized Health Care Education/Training Program
DX: G46.3 Brain stem stroke syndrome (principal); I50.23 Acute on chronic systolic (congestive) heart failure; G81.91 Hemiplegia, unspecified affecting right dominant side; G81.94 Hemiplegia, unspecified affecting left nondominant side; I65.1 Occlusion and stenosis of basilar artery; D84.9 Immunodeficiency, unspecified; J98.6 Disorders of diaphragm; E11.22 Type 2 diabetes mellitus with diabetic chronic kidney disease; Z94.4 Liver transplant status; I13.0 Hypertensive heart and chronic kidney disease with heart failure and stage 1 through stage 4 chronic kidney disease, or unspecified chronic kidney disease; N18.30 Chronic kidney disease, stage 3 unspecified; E03.9 Hypothyroidism, unspecified; N17.9 Acute kidney failure, unspecified; J98.11 Atelectasis; E11.42 Type 2 diabetes mellitus with diabetic polyneuropathy; E11.65 Type 2 diabetes mellitus with hyperglycemia; Z79.4 Long term (current) use of insulin; R29.702 NIHSS score 2; Z79.890 Hormone replacement therapy; E78.5 Hyperlipidemia, unspecified; H02.401 Unspecified ptosis of right eyelid; I65.22 Occlusion and stenosis of left carotid artery; K21.9 Gastro-esophageal reflux disease without esophagitis; L74.4 Anhidrosis; Z79.02 Long term (current) use of antithrombotics/antiplatelets; Z79.82 Long term (current) use of aspirin; Z79.84 Long term (current) use of oral hypoglycemic drugs; Z79.899 Other long term (current) drug therapy; Z85.05 Personal history of malignant neoplasm of liver; Z86.73 Personal history of transient ischemic attack (TIA), and cerebral infarction without residual deficits; Z96.643 Presence of artificial hip joint, bilateral; Z98.1 Arthrodesis status; Z90.49 Acquired absence of other specified parts of digestive tract
CPT/HCPCS: 36415; 70450; 70496; 70498; 70544; 70551; 71046; 80048; 80053; 80061; 81003; 82550; 83036; 83721; 85025; 85610; 85730; 93005; 93306; 94760; 99291